=== PATIENT | male | born 1970 | race African-American/Black ===

== ENCOUNTER 2016-06-27 17:55 | Emergency (ER) | payer SELFPAY ==
--- NOTE | 2016-06-27 23:26 | ER Document Report ---
ED General - General Chief Complaint: Weakness Stated Complaint: FATIGUE Notes: Patient is a 45-year-old male presents with complaint of cough and congestion. No fevers. No vomiting. No diarrhea. Patient was seen here 10 days ago. He was diagnosed with atypical pneumonia. He was placed on Bactrim and azithromycin. Patient says he is feeling approximately 85-90% better but still has a lingering cough. She does have a history of diabetes. No history of HIV- related. No history of any other immunosuppressive diseases. Patient says he does have some mild pain in his chest but it's only when he coughs.. TRAVEL OUTSIDE OF THE [place] IN LAST 30 DAYS: No - Related Data Allergies/Adverse Reactions: No Known Allergies Allergy (Verified 06/27/16 18:30) Past Medical History - General Information source: Patient - Social History Smoking Status: Never Smoker Chew tobacco use (# tins/day): No Frequency of alcohol use: None Drug Abuse: None Family History: Reviewed & Not Pertinent, DM, Hypertension Patient has suicidal ideation: No Patient has homicidal ideation: No Pulmonary Medical History: Reports: Hx Bronchitis Endocrine Medical History: Reports: Hx Diabetes Mellitus Type 2 Psychiatric Medical History: Reports: Hx Depression Past Surgical History: Reports: Hx Orthopedic Surgery - Immunizations Hx Diphtheria, Pertussis, Tetanus Vaccination: No Hx Pneumococcal Vaccination: 10/05/13 Review of Systems - Review of Systems Notes: My Normal Review Basic REVIEW OF SYSTEMS: CONSTITUTIONAL : Denies fever, chills, or sweats. Denies recent illness. EENT: Mild sore throat CARDIOVASCULAR: Has chest pain with cough RESPIRATORY: Cough GASTROINTESTINAL: Denies abdominal pain. Denies nausea, vomiting, or diarrhea. Denies constipation. Last BM: MUSCULOSKELETAL: Denies neck or back pain or joint pain or swelling. SKIN: Denies rash or skin lesions. NEUROLOGICAL: Denies altered mental status or loss of consciousness. Denies headache. Denies weakness or paralysis or loss of use of either side. Denies problems with gait or speech. Denies sensory or motor loss. ALL OTHER SYSTEMS REVIEWED AND NEGATIVE. Physical Exam - Vital signs Vitals: Temp Pulse Resp BP Pulse Ox 98.3 F 111 H 18 134/84 H 94 06/27/16 18:20 06/27/16 18:20 06/27/16 18:20 06/27/16 18:20 06/27/16 18:20 - Notes Notes: General Appearance: Well nourished, alert, cooperative, no acute distress, no obvious discomfort. Mild pain Vitals: reviewed, See vital signs table. Head: no swelling or tenderness to the head Eyes: PERRL, EOMI, Conjuctiva clear Mouth: No decreasd moisture Nose: Some audible nasal congestion Throat: No tonsillar inflammation, No airway obstruction, No lymphadenopathy. Mild pharyngeal erythema. Neck: Supple, no neck tenderness, No thyromegaly Lungs: No wheezing, No rales, No rhonci, No accessory muscle use, good air exchange bilaterally. Heart: Normal rate, Regular rythm, No murmur, no rub Abdomen: Normal BS, soft, No rigidity, No abdominal tenderness, No guarding, no rebound, no abdominal masses, no organomegaly Extremities: strength 5/5 in all extremities, good pulses in all extremities, no swelling or tenderness in the extremities, no edema. Skin: warm, dry, appropriate color, no rash Neuro: speech clear, oriented x 3, normal affect, responds appropriately to questions. Course - Vital Signs Vital signs: Temp Pulse Resp BP Pulse Ox 98.2 F 108 H 16 109/77 97 06/28/16 01:46 06/28/16 01:46 06/28/16 01:46 06/28/16 01:46 06/28/16 01:46 - Transfer of Care Notes: 06/28/16 00:47 Patient's physical exam findings consistent with upper respiratory infection with cough. He looks very well and exam. His no distress. His chest x-ray has cleared up since he has been on anabolic. Patient himself and says he feels proximately 90% better. He is here mainly because of lingering cough has some pain in his chest never he coughs. Without the cough has no pain in his chest. Is very pleuritic. I do think it's related to his recent infection. Has just mild tachycardia upon arrival. I do not suspect PE. All his symptoms started with his pneumonia and have improved with antibiotics which would be very unlikely for pulmonary embolism. At this time I feel patient safe to be discharged home. I encouraged him to return to ER if he has worsening of symptoms, fevers, vomiting, or feels unwell. Patient agrees with plan will be discharged home. Dictation of this chart was performed using voice recognition software; therefore, there may be some unintended grammatical errors. Discharge - Discharge Clinical Impression: Cough Condition: Good Disposition: HOME, SELF-CARE Additional Instructions: Please return to the ER immediately if you develop difficulty breathing, fevers , or feel unwell. Referrals: NIYA TODD DO [Primary Care Provider] - Follow up in 3-5 days
[2016-06-28 01:48] VITALS: BP 109/77
== END 2016-06-28 01:32 | disposition home or self-care (01) ==
LOC: ER 17:55
DX: R05 Cough (principal); R53.1 Weakness; R53.83 Other fatigue; R09.81 Nasal congestion
CPT/HCPCS: 71020; 99284

== ENCOUNTER 2016-11-03 13:36 | Inpatient (IN) | payer SELFPAY ==
--- NOTE | 2016-11-03 15:10 | ER Document Report ---
ED Medical Screen (RME) - General Mode of Arrival: Wheelchair Information source: Patient TRAVEL OUTSIDE OF THE [place] IN LAST 30 DAYS: No - HPI Patient complains to provider of: wound <JANETTE LO - Last Filed: 11/03/16 15:05> <MICHELLE CAPUTO - Last Filed: 11/03/16 19:46> - General Chief Complaint: Skin Sore(s) Stated Complaint: CUT ON PINKY TOE,CHILLS Time Seen by Provider: 11/03/16 15:00 Notes: Patient presents to ED with complaints of wond on right foot. Patient is diabetic on Genoiva but admits he only takes it sometimes, states his blood sugar normally runs between 200-300. Patient states he noticed the cut on his pinky toe about 4 days ago and redness over his foot and calf 3 days ago, patient also complains of fever. (JANETTE LO) - Related Data Allergies/Adverse Reactions: No Known Allergies Allergy (Verified 11/03/16 14:55) Past Medical History - General Information source: Patient - Social History Cigarette use (# per day): No Chew tobacco use (# tins/day): No Frequency of alcohol use: None Drug Abuse: None Pulmonary Medical History: Reports: Hx Bronchitis Endocrine Medical History: Reports: Hx Diabetes Mellitus Type 2 Renal/ Medical History: Denies: Hx Peritoneal Dialysis Psychiatric Medical History: Reports: Hx Depression Past Surgical History: Reports: Hx Orthopedic Surgery - Immunizations Hx Diphtheria, Pertussis, Tetanus Vaccination: No <JANETTE LO - Last Filed: 11/03/16 15:05> Review of Systems - Review of Systems Skin: See HPI, Lesions <JANETTE LO - Last Filed: 11/03/16 15:05> Physical Exam - Cardiovascular Rhythm: Tachycardia - mild Pulses: Normal: Dorsalis pedis - Extremities General lower extremity: Other - warmth and redness from right foot up to just below knee. Diabetic ulcer on right foot partially healed below 4th and 5th MTP. Region of necrosis between 4th and 5th digist of right foot with exudate. Diabetic ulcer on lateral aspect of 5th digit that does not palpate to bone. <JANETTE LO - Last Filed: 11/03/16 15:05> Course - Laboratory Result Diagrams: 11/03/16 15:37 11/03/16 18:11 <MICHELLE CAPUTO - Last Filed: 11/03/16 19:46> - Vital Signs Vital signs: Temp Pulse Resp BP Pulse Ox 98.8 F 110 H 18 168/91 H 88 L 11/03/16 17:39 11/03/16 17:39 11/03/16 13:47 11/03/16 17:39 11/03/16 17:39 - Laboratory Laboratory results interpreted by me: 11/03/16 15:37 WBC 11.7 H RBC 4.14 L Hgb 11.6 L Hct 34.8 L Absolute Neutrophils 8.7 H Doctor's Discharge <JANETTE LO - Last Filed: 11/03/16 15:05> <MICHELLE CAPUTO - Last Filed: 11/03/16 19:46> - Discharge Clinical Impression: Cellulitis of foot, right Diabetic ulcer of foot associated with diabetes mellitus due to underlying condition, with necrosis of bone Qualifiers: Diabetic foot ulcer location: unspecified part of foot Laterality: right Qualified Code(s): E08.621 - Diabetes mellitus due to underlying condition with foot ulcer Condition: Stable Disposition: ADMITTED INPATIENT Scribe Documentation - Scribe Written by Scribe:: abigail Thomson, 11/03/16, 1510 acting as scribe for :: Loi <JANETTE LO - Last Filed: 11/03/16 15:05>
[2016-11-03] MEDS ORDERED: VANCOMYCIN HCL INJ 1000 MG VIAL IV ONE (15:21)
[2016-11-03] MEDS ORDERED: PIPERACILLIN/TAZOBACTAM 4.5 GM VIAL IV ONE (15:21)
[2016-11-03 15:55] LABS: ABSOLUTE BASOPHILS # (AUTO) 0.1 10^3/uL (0.0-0.2); ABSOLUTE EOSINOPHILS # (AUTO) 0.2 10^3/uL (0.0-0.6); ABSOLUTE LYMPHOCYTES (AUTO) 1.6 10^3/uL (0.5-4.7); ABSOLUTE MONOCYTES (AUTO) 1.1 10^3/uL (0.1-1.4); ABSOLUTE NEUT (AUTO) 8.7 10^3/uL (1.7-8.2); BASOPHILS % (AUTO) 0.9 % (0-2); EOSINOPHILS % (AUTO) 1.5 % (0-6); HEMATOCRIT 34.8 % (37.9-51.0); HEMOGLOBIN 11.6 g/dL (13.5-17.0); LYMPHOCYTES % (AUTO) 13.9 % (13-45); MEAN CORPUSCULAR HGB CONC 33.3 g/dL (32.0-36.0); MEAN CORPUSCULAR VOLUME 84 fl (80-97); MONOCYTES % (AUTO) 9.2 % (3-13); RED BLOOD COUNT 4.14 10^6/uL (4.35-5.55); RED CELL DISTRIBUTION WIDTH 13.7 % (11.5-14.0); SEGMENTED NEUTROPHILS % (AUTO) 74.5 % (42-78); WHITE BLOOD COUNT 11.7 10^3/uL (4.0-10.5)
--- NOTE | 2016-11-03 17:12 | ER Document Report ---
ED Skin Rash/Insect Bite/Abscs - General Chief Complaint: Skin Sore(s) Stated Complaint: CUT ON PINKY TOE,CHILLS Time Seen by Provider: 11/03/16 15:00 Mode of Arrival: Wheelchair Notes: The patient is a 46-year-old male, past medical history type II diabetes, bronchitis, presents with 3 days of 2 wounds on his right foot with drainage and increasing redness up his leg. He is also having subjective fevers and chills. In addition, he has his chronic cough. He has not taken his Januvia for several months and has not seen his auditor in charge in a few years. He does not remember if he had an injury. Denies chest pain at rest, shortness of breath, nausea, vomiting, hematemesis, difficulty walking or calf swelling. TRAVEL OUTSIDE OF THE [place] IN LAST 30 DAYS: No - Related Data Allergies/Adverse Reactions: No Known Allergies Allergy (Verified 11/03/16 14:55) Past Medical History - General Information source: Patient - Social History Smoking Status: Never Smoker Cigarette use (# per day): No Chew tobacco use (# tins/day): No Frequency of alcohol use: None Drug Abuse: None Family History: Reviewed & Not Pertinent, DM, Hypertension Patient has suicidal ideation: No Patient has homicidal ideation: No Pulmonary Medical History: Reports: Hx Bronchitis Endocrine Medical History: Reports: Hx Diabetes Mellitus Type 2 Renal/ Medical History: Denies: Hx Peritoneal Dialysis Psychiatric Medical History: Reports: Hx Depression Past Surgical History: Reports: Hx Orthopedic Surgery - Immunizations Hx Diphtheria, Pertussis, Tetanus Vaccination: No Hx Pneumococcal Vaccination: 10/05/13 Review of Systems - Review of Systems Notes: REVIEW OF SYSTEMS: CONSTITUTIONAL: -fevers, -chills EENT: -eye pain, -difficulty swallowing, -nasal congestion CARDIOVASCULAR: -chest pain, -syncope RESPIRATORY: -cough, -SOB GASTROINTESTINAL: -abdominal pain, -nausea, -vomiting, -diarrhea GENITOURINARY: -dysuria, -hematuria MUSCULOSKELETAL: -back pain, -neck pain SKIN: +discharge out of right foot, +cellulitis HEMATOLOGIC: -easy bruising or bleeding. LYMPHATIC: -swollen, enlarged glands. NEUROLOGICAL: -altered mental status or loss of consciousness, -headache, - neurologic symptoms PSYCHIATRIC: -anxiety, -depression. ALL OTHER SYSTEMS REVIEWED AND NEGATIVE. Physical Exam - Vital signs Vitals: Temp Pulse Resp BP Pulse Ox 99.8 F 107 H 18 118/71 94 11/03/16 13:47 11/03/16 13:47 11/03/16 13:47 11/03/16 13:47 11/03/16 13:47 - Notes Notes: PHYSICAL EXAMINATION: GENERAL: Well-appearing, well-nourished and in no acute distress. HEAD: Atraumatic, normocephalic. EYES: Pupils equal round and reactive to light, extraocular movements intact, sclera anicteric, conjunctiva are normal. ENT: nares patent, oropharynx clear without exudates. Moist mucous membranes. NECK: Normal range of motion, supple without lymphadenopathy LUNGS: Breath sounds clear to auscultation bilaterally and equal. No wheezes rales or rhonchi. HEART: Tachycardia ABDOMEN: Soft, nontender, normoactive bowel sounds. No guarding, no rebound. No masses appreciated. EXTREMITIES: warmth and redness from right foot up to just below ankle. Diabetic ulcer on right foot partially healed below 4th and 5th MTP. Region of necrosis between 4th and 5th digist of right foot with exudate. Diabetic ulcer on lateral aspect of 5th digit that does not palpate to bone. NEUROLOGICAL: Cranial nerves grossly intact. Normal speech, normal gait. Normal motor and reflex exams. PSYCH: Normal mood, normal affect. Course - Re-evaluation Re-evalutation: Patient with pustular drainage and cellulitis up to his ankle of his right foot. X-ray shows gas and evidence of cellulitis, but no evidence of osteomyelitis. Spoke to Dr. Santiago at 17:10 and he will consult to see if the wounds needs debridement. Spoke to Dr. Nam (Hospitalist) at 17:20 and she has accepted patient as Inpatient. Patient received IV vancomycin and Zosyn. BMP hemolyzed, but repeat sent. - Vital Signs Vital signs: Temp Pulse Resp BP Pulse Ox 99.8 F 107 H 18 118/71 94 11/03/16 13:47 11/03/16 13:47 11/03/16 13:47 11/03/16 13:47 11/03/16 13:47 - Laboratory Result Diagrams: 11/03/16 15:37 11/03/16 15:37 Laboratory results interpreted by me: 05/11/17 15:37 WBC 11.7 H RBC 4.14 L Hgb 11.6 L Hct 34.8 L Absolute Neutrophils 8.7 H Discharge - Discharge Clinical Impression: Cellulitis of foot, right Diabetic ulcer of foot associated with diabetes mellitus due to underlying condition, with necrosis of bone Qualifiers: Diabetic foot ulcer location: unspecified part of foot Laterality: right Qualified Code(s): E08.621 - Diabetes mellitus due to underlying condition with foot ulcer; L97.514 - Non-pressure chronic ulcer of other part of right foot with necrosis of bone Condition: Stable Disposition: ADMITTED INPATIENT Admitting Provider: [facility] Unit Admitted: Medical Floor
[2016-11-03] MEDS ORDERED: DEXTROSE 50%-WATER 25 GM/50 ML DISP.SYRIN IV PRN ×4 (17:49→19:01)
[2016-11-03] MEDS ORDERED: GLUCAGON,HUMAN RECOMB 1 MG INJ IM PRN (17:49)
[2016-11-03] MEDS ORDERED: DEXTROSE 40% GEL 15 GM TUBE PO PRN ×4 (17:49→19:01)
[2016-11-03] MEDS ORDERED: VANCOMYCIN HCL 0 MG in DEXTROSE 5%-WATER 250 ML IV NR (18:00)
--- NOTE | 2016-11-03 18:10 | PDOC H&P ---
History of Present Illness Admission Date/PCP: NIYA TODD DO History of Present Illness: JEANNE DELEON is a 46 year old -[place] male with a past medical history significant for diabetes mellitus who presents to the service with complaints of right foot pain and toe wound. The patient states that approximately 3-4 days ago he was checking his feet and noticed that there was blood coming from the bottom of his foot. History of diabetic foot ulcer on that same side. He says that he had pus coming from between the third and fourth toe and over time his foot began to get red. He is not certain as to whether or not he injured it. He says that he remembers hitting it on a vacuum reed cleaner couple days ago but didn't think anything of it. He usually checks his feet on a daily basis by using a mirror. Last time he was seen by his monitoring analyst was a year ago. He usually follows with a physician at [facility]. He says his last hemoglobin A1c was about a year ago and was somewhere between 11 and 12. He freely admits that he doesn't check his blood sugars and only takes his Januvia sporadically. He denies any neuropathy. He feels that he has normal sensation in his feet. In the emergency room the patient was noted to have purulent drainage from between his third and fourth digit. He was taken for x-ray of the soft tissues of the foot which showed gas collection no chase osteomyelitis. He was given 1 dose of Zosyn and one dose of vancomycin. Dr. James with general surgery was consulted to determine whether not sharp knife debridement would be necessary. Past Medical History Pulmonary Medical History: Reports: Bronchitis, Other - History of MRSA infected boils and wounds Endocrine Medical History: Reports: Diabetes Mellitus Type 2 Psychiatric Medical History: Reports: Depression Past Surgical History Past Surgical History: Reports: Other - Removal of "tumor" from the right thigh , removal of multiple boils Social History Smoking Status: Never Smoker Frequency of Alcohol Use: None Hx Recreational Drug Use: No Hx Prescription Drug Abuse: No Family History Family History: CAD, DM, Hypertension Parental Family History Reviewed: Yes Children Family History Reviewed: Yes Sibling(s) Family History Reviewed.: Yes Medication/Allergy Home Medications: Acetaminophen [Tylenol Extra Strength] 500 mg PO ASDIR PRN 11/03/16 Loperamide HCl [Loperamide] 2 mg PO DAILY 11/03/16 Sitagliptin Phosphate [Januvia 25 mg Tablet] 25 mg PO DAILY 11/03/16 Allergies/Adverse Reactions: No Known Allergies Allergy (Verified 11/03/16 14:55) Review of Systems Review of Systems: Review of systems is positive for that already listed in the history of present illness. In addition to this the patient admits to cold intolerance, decreased appetite, chest wall pain associated with chronic cough, periodic nosebleeds, chills, diarrhea and constipation, nausea. He denies vomiting blood in the stool, blood in the urine, coughing up blood, or throwing up blood, he denies arthritic type pains, abdominal pain, chest pain, shortness of breath, visual changes, weight changes. Physical Exam Vital Signs: Temp Pulse Resp BP Pulse Ox 99.8 F 107 H 18 118/71 94 11/03/16 13:47 11/03/16 13:47 11/03/16 13:47 11/03/16 13:47 11/03/16 13:47 Intake & Output 11/02/16 11/03/16 11/04/16 06:59 06:59 06:59 Weight 101.7 kg Physical exam: Gen.: This is a well-developed well-nourished overweight -[place] male resting in bed currently in no acute distress. HEENT: normocephalic atraumatic. Trachea is midline. No lymphadenopathy. No thyromegaly. Sclera are not icteric. Mallenpatii 3. Heart: Regular rate and rhythm. No murmurs rubs or gallops. Lungs: Clear to auscultation bilaterally with equal rise and fall of the chest. Abdomen: Soft nontender, nondistended. Normoactive bowel sounds. Extremities: No clubbing cyanosis. There is no edema on the left side. There is 1+ edema of the right foot. 2+ dorsalis pedis pulses bilaterally. Strength is 5 out of 5 in both upper and lower extremities bilaterally. Neuro: Awake alert oriented 3 cranial nerves II through XII are specifically intact. Pupils are Perrl. Sensation in the feet are intact. Psych: Affect is flat. Skin: The right foot has erythema extending from the toes up through the foot. There is a purulent, malodorous discharge between the third and fourth digit on that side. Final elements are obvious between all digits of both feet. Onychomycosis present. Results Laboratory Results: 11/03/16 15:37 11/03/16 15:37 11/03/16 11/03/16 15:37 15:37 WBC 11.7 H RBC 4.14 L Hgb 11.6 L Hct 34.8 L MCV 84 MCH 28.0 MCHC 33.3 RDW 13.7 Plt Count 269 Seg Neutrophils % 74.5 Lymphocytes % 13.9 Monocytes % 9.2 Eosinophils % 1.5 Basophils % 0.9 Absolute Neutrophils 8.7 H Absolute Lymphocytes 1.6 Absolute Monocytes 1.1 Absolute Eosinophils 0.2 Absolute Basophils 0.1 Sodium Cancelled Potassium Cancelled Chloride Cancelled Carbon Dioxide Cancelled Anion Gap Cancelled BUN Cancelled Creatinine Cancelled Est GFR ( Amer) Cancelled Est GFR (Non-Af Amer) Cancelled Glucose Cancelled Calcium Cancelled Total Bilirubin Cancelled AST Cancelled ALT Cancelled Alkaline Phosphatase Cancelled Total Protein Cancelled Albumin Cancelled Impressions: Foot X-Ray 11/03/16 15:21 IMPRESSION: Soft tissue swelling with soft tissue gas between the 4th and 5th toe proximal phalanges. Findings are certainly worrisome for cellulitis. No radiopaque foreign body. No aggressive bony erosions or periosteal new bone worrisome for osteomyelitis by plain film at this time Assessment & Plan - Diagnosis (1) Cellulitis of foot, right Plan: Continue vancomycin and Zosyn for now. General surgery consult has been placed. Will also add griseofulvin if liver enzymes are normal. These labs will need to be repeated as they were canceled earlier. We will need control of the patient's blood sugar. (2) Diabetes Qualifiers: Diabetes mellitus type: type 2 Diabetes mellitus complication status: with circulatory complication Diabetes mellitus complication detail: with other circulatory complications Diabetes mellitus assisted insulin use: without deployment engineer use Qualified Code(s): E11.59 - Type 2 diabetes mellitus with other circulatory complications Plan: Check hemoglobin A1c in a.m. Repeat chemistries now as they were canceled. Monitor blood sugars to determine what amount of insulin the patient will need. Diabetic teaching/education. Start sliding scale insulin. Every before meals at bedtime blood sugar checks - Time Time Spent: 50 to 70 Minutes Anticipated discharge: Home - Inpatient Certification Medical Necessity: Significant Comorbidiites Make Outpatient Treatment Too Risky , Need for IV Antibiotics
--- NOTE | 2016-11-03 18:15 | PDOC H&P ---
History of Present Illness Admission Date/PCP: 11/03/16 17:50 NIYA TODD DO Patient complains of: Right foot pain and fevers and chills. History of Present Illness: Patient is a 46 year-old the diabetic who presents with several day history of right foot swelling with purulent drainage and fevers and chills. Patient has had some pain in his right foot. He has a history of a right foot ulcer at the base of his fifth toe that was debrided the last year and apparently healed. Past Medical History Pulmonary Medical History: Reports: Bronchitis Endocrine Medical History: Reports: Diabetes Mellitus Type 2 Psychiatric Medical History: Reports: Depression Past Surgical History Past Surgical History: Reports: Orthopedic Surgery Social History Smoking Status: Never Smoker Frequency of Alcohol Use: None Hx Recreational Drug Use: No Hx Prescription Drug Abuse: No Family History Family History: Reviewed & Not Pertinent, DM, Hypertension Parental Family History Reviewed: No Children Family History Reviewed: No Sibling(s) Family History Reviewed.: No Medication/Allergy Allergies/Adverse Reactions: No Known Allergies Allergy (Verified 11/03/16 14:55) Physical Exam Vital Signs: Temp Pulse Resp BP Pulse Ox 99.8 F 107 H 18 118/71 94 11/03/16 13:47 11/03/16 13:47 11/03/16 13:47 11/03/16 13:47 11/03/16 13:47 General appearance: PRESENT: no acute distress, cooperative Neck exam: PRESENT: other - Supple with no tenderness and no abnormal masses Respiratory exam: PRESENT: clear to auscultation donna Cardiovascular exam: PRESENT: RRR Pulses: PRESENT: +2 pedal pulses bilateral Vascular exam: PRESENT: normal capillary refill GI/Abdominal exam: PRESENT: other - Soft nondistended nontender to palpation Extremities exam: PRESENT: other - Left foot without any lesions no abnormalities. Right foot with the diffuse erythema centralized at the lateral aspect extending to the midfoot dorsally. Small ulcer at the fifth metatarsal region laterally with the purulent drainage. Surrounding induration and a sense of fluctuance laterally. Patient with the mild tenderness in the lateral aspect of his right foot. Patient with evidence of healed ulcer at the sole in the region of the fifth metatarsal head. Neurological exam: PRESENT: alert, awake, oriented to person, oriented to place Psychiatric exam: PRESENT: appropriate affect Results Impressions: Foot X-Ray 11/03/16 15:21 IMPRESSION: Soft tissue swelling with soft tissue gas between the 4th and 5th toe proximal phalanges. Findings are certainly worrisome for cellulitis. No radiopaque foreign body. No aggressive bony erosions or periosteal new bone worrisome for osteomyelitis by plain film at this time Assessment & Plan - Diagnosis (1) Diabetic infection of right foot Is this a current diagnosis for this admission?: YesPlan: We'll plan to take the patient to the operating room for an excisional debridement. Possibility of performing a fifth toe and fifth metatarsal amputation if there is evidence of osteomyelitis intraoperatively. I have explained to the patient the nature of the surgery and risk and benefits including possibility that he may end up with a below the knee amputation if we cannot get the infection under control. Initial surgery will be to try to get control over his infection. He understands that subsequent surgeries may be required.
[2016-11-03] MEDS ORDERED: FENTANYL CITRATE INJ/PF 100 MCG/2 ML AMPUL ONE ×2 (18:37→18:38)
[2016-11-03] MEDS ORDERED: HYDROMORPHONE HCL INJ/PF 2 MG/ML AMPULE ONE (18:37)
[2016-11-03] MEDS ORDERED: MIDAZOLAM 2 MG/2 ML INJ ONE (18:38)
[2016-11-03] MEDS ORDERED: ACETAMINOPHEN 0 ML IV ONE (18:38)
[2016-11-03] MEDS ORDERED: PROPOFOL INJ 200 MG/20 ML VIAL IV ONE (18:38)
[2016-11-03 18:48] LABS: ANION GAP 10 (5-19); BLOOD UREA NITROGEN 16 mg/dL (7-20); CALCIUM 8.4 mg/dL (8.4-10.2); CARBON DIOXIDE 28 mmol/L (22-30); CHLORIDE 97 mmol/L (98-107); CREATININE RESULT 0.91 mg/dL (0.52-1.25); GLUCOSE 248 mg/dL (75-110); POTASSIUM 3.9 mmol/L (3.6-5.0)
[2016-11-03] MEDS ORDERED: LIDOCAINE 2% INJ-PF (20 MG/ML) 10 ML AMPUL ONE (18:59)
[2016-11-03] MEDS ORDERED: ONDANSETRON HCL INJ/PF 4 MG/2 ML SDV ONE (18:59)
[2016-11-03] MEDS ORDERED: GLUCAGON,HUMAN RECOMB 1 MG INJ SUBCUT PRN (19:01)
--- NOTE | 2016-11-03 19:01 | PDOC PROGRESS REPORT ---
Physical Exam Vital Signs: Temp Pulse Resp BP Pulse Ox 98.8 F 110 H 18 168/91 H 88 L 11/03/16 17:39 11/03/16 17:39 11/03/16 13:47 11/03/16 17:39 11/03/16 17:39 Results Laboratory Results: 11/03/16 18:11 11/03/16 18:11 Sodium 135.0 L Potassium 3.9 Chloride 97 L Carbon Dioxide 28 Anion Gap 10 BUN 16 Creatinine 0.91 Est GFR ( Amer) > 60 Est GFR (Non-Af Amer) > 60 Glucose 248 H Calcium 8.4 Impressions: Foot X-Ray 11/03/16 15:21 IMPRESSION: Soft tissue swelling with soft tissue gas between the 4th and 5th toe proximal phalanges. Findings are certainly worrisome for cellulitis. No radiopaque foreign body. No aggressive bony erosions or periosteal new bone worrisome for osteomyelitis by plain film at this time Assessment & Plan - Diagnosis (1) Diabetic infection of right foot Is this a current diagnosis for this admission?: YesPlan: Patient about to be taken to the operating room for his right foot debridement but unfortunately despite being told not to eat anything patient ate dinner. Diabetic patient who has just eaten a meal. Will hold off surgery till morning.
[2016-11-03] MEDS: PIPERACILLIN SODIUM/TAZOBACTAM 3.375 GM in NORMAL SALINE 100 ML IV SCH (22:29)
[2016-11-03] MEDS ORDERED: PIPERACILLIN/TAZOBACTAM 3.375 GM VIAL IV ONE (22:54)
[2016-11-03] MEDS ORDERED: VANCOMYCIN HCL INJ 500 MG VIAL ONE (22:54)
[2016-11-03] MEDS ORDERED: VANCOMYCIN HCL INJ 1000 MG VIAL ONE (22:54)
[2016-11-04] MEDS: PIPERACILLIN SODIUM/TAZOBACTAM 3.375 GM in NORMAL SALINE 100 ML IV SCH ×4 (00:10→17:26)
[2016-11-04] MEDS: OXYCODONE-ACETAMINOPHEN 5-325 MG TABLET PO PRN ×2 (00:28→16:27)
[2016-11-04] MEDS: VANCOMYCIN HCL 1,500 MG in DEXTROSE 5%-WATER 250 ML IV SCH ×3 (00:28→22:35)
[2016-11-04] MEDS: INSULIN REG, HUMAN 100 UNIT/ML 3 ML VIAL (PYX) SUBCUT PRN ×3 (00:28→22:57)
[2016-11-04 06:10] LABS: ABSOLUTE BASOPHILS # (AUTO) 0.1 10^3/uL (0.0-0.2); ABSOLUTE EOSINOPHILS # (AUTO) 0.2 10^3/uL (0.0-0.6); ABSOLUTE LYMPHOCYTES (AUTO) 1.7 10^3/uL (0.5-4.7); ABSOLUTE MONOCYTES (AUTO) 1.1 10^3/uL (0.1-1.4); ABSOLUTE NEUT (AUTO) 7.9 10^3/uL (1.7-8.2); BASOPHILS % (AUTO) 1.2 % (0-2); EOSINOPHILS % (AUTO) 2.2 % (0-6); HEMATOCRIT 33.5 % (37.9-51.0); HGB HCT DIFFERENCE -0.5; LYMPHOCYTES % (AUTO) 15.6 % (13-45); MEAN CORPUSCULAR HEMOGLOBIN 27.6 pg (27.0-33.4); MEAN CORPUSCULAR HGB CONC 32.8 g/dL (32.0-36.0); MEAN CORPUSCULAR VOLUME 84 fl (80-97); MONOCYTES % (AUTO) 9.7 % (3-13); RED BLOOD COUNT 3.98 10^6/uL (4.35-5.55); SEGMENTED NEUTROPHILS % (AUTO) 71.3 % (42-78)
[2016-11-04 06:31] LABS: ANION GAP 7 (5-19); BLOOD UREA NITROGEN 17 mg/dL (7-20); CALCIUM 8.4 mg/dL (8.4-10.2); CARBON DIOXIDE 30 mmol/L (22-30); CHLORIDE 101 mmol/L (98-107); CREATININE RESULT 1.08 mg/dL (0.52-1.25); GLUCOSE 203 mg/dL (75-110); MAGNESIUM 2.1 mg/dL (1.6-2.3); POTASSIUM 3.9 mmol/L (3.6-5.0); SODIUM 137.9 mmol/L (137-145)
[2016-11-04] MEDS: ENOXAPARIN SODIUM INJ 40 MG/0.4 ML DISP.SYRIN SUBCUT SCH (08:40)
[2016-11-04] MEDS ORDERED: FAMOTIDINE INJ/PF 20 MG/2 ML SDV IV ONE (08:47)
[2016-11-04] MEDS ORDERED: METOCLOPRAMIDE HCL INJ/PF 10 MG/2 ML SDV ONE ×2 (08:47→16:38)
[2016-11-04] MEDS ORDERED: FENTANYL CITRATE INJ/PF 250 MCG/5 ML AMPULE ONE (09:52)
[2016-11-04] MEDS ORDERED: FENTANYL CITRATE INJ/PF 100 MCG/2 ML AMPUL ONE (09:53)
[2016-11-04] MEDS ORDERED: MIDAZOLAM 2 MG/2 ML INJ ONE (09:53)
[2016-11-04] MEDS ORDERED: ACETAMINOPHEN 100 ML IV ONE (09:53)
[2016-11-04] MEDS ORDERED: MORPHINE SULFATE 10 MG/ML INJ ONE (09:54)
[2016-11-04] MEDS ORDERED: PROPOFOL INJ 200 MG/20 ML VIAL IV ONE (09:55)
[2016-11-04] MEDS ORDERED: MORPHINE SULFATE 10 MG/ML INJ IV PRN (10:29)
[2016-11-04] MEDS ORDERED: PROMETHAZINE HCL INJ 25 MG/1 ML VIAL IV PRN ×2 (10:29)
[2016-11-04] MEDS ORDERED: FENTANYL CITRATE INJ/PF 100 MCG/2 ML AMPUL IV PRN ×3 (10:29)
[2016-11-04] MEDS ORDERED: DIPHENHYDRAMINE HCL 50 MG/ML VIAL IV PRN (10:29)
[2016-11-04] MEDS ORDERED: OXYCODONE-ACETAMINOPHEN 5-325 MG TABLET PO PRN ×2 (10:29)
[2016-11-04] MEDS ORDERED: MEPERIDINE HCL/PF INJ 25 MG/1 ML DISP.SYRIN IV PRN (10:29)
--- NOTE | 2016-11-04 12:05 | EKG REPORT ---
SEVERITY:- BORDERLINE ECG - SINUS TACHYCARDIA PROBABLE LEFT ATRIAL ABNORMALITY : Confirmed by: Micheal Angeles 04-Nov-2016 12:04:32
--- NOTE | 2016-11-04 12:54 | OPERATIVE REPORT E ---
Operative Report NAME: JEANNE DELEON : 1970 AGE: 46Y DATE OF SURGERY: 11/04/2016 ROOM: 424 PREOPERATIVE DIAGNOSIS: Abscess of the right foot with an open wound at the area of the fifth toe. POSTOPERATIVE DIAGNOSIS: Abscess of the right foot with an open wound at the area of the fifth toe. PROCEDURE: Incision and drainage of abscess right foot, excision of the right fifth toe and most of the right metatarsal bone. Placement of wound VAC. SURGEON: RUTH COLVIN M.D. INDICATIONS: This is a 46-year-old diabetic who bumped his right fifth toe on a vacuum cleaner and preparer about a week ago. This developed into an abscess and he was admitted last night. He ate just before being admitted and therefore surgery was delayed until this morning. ANESTHESIA: General. DESCRIPTION OF PROCEDURE: After adequate general anesthesia, patient was placed in supine position and the right foot and lower leg isolated and prepped and draped in the usual sterile fashion. Appropriate time out was obtained. Next, an incision made over the fluctuant area on the top of the right foot right at the middle. A small incision was made but no pus was noted. About a 1 cm incision was done. Only some clear fluid was squeezed out. A sterile hemostat was placed over here and attempt to debride was done. However, only a small amount of serous fluid. A counter incision was made about 3 cm distal, that was the area of the second toe and again no pus was noted. The 2 incisions were then connected and again no purulent material was noted. However, cultures of the fluid were sent. Next, attention was then directed to the area of the right fifth toe base where a small ulcer with extruding purulent material was noted. Cultures of the purulent material was also sent. Next, the site of the abscess exit was then probed down proximally and probe by hemostat can be placed up to a distance of about 5 cm. An incision was made at this area. Further necrotic purulent material was removed. However, towards the area of the second toe underneath the skin was also a small amount of pus and the incision was made around the fifth toe. There was also some purulent material around that site. The fifth toe was then disarticulated and subsequently removed. Next, the metatarsal head was rongeured and noted to be relatively soft and therefore a sample of the bone was sent for culture. Further division of the head of the metatarsal was then done with a bone cutter. Further nibbling of the metatarsal bone was done with the use of rongeur to the point where the bone was relatively normal. Following this, there was a bleeder noted and this was grabbed with hemostat and suture ligated with 2-0 Vicryl. The wound was then further Pulsavac with 2 L of saline. The top part of the foot incisions were also pulse lavaged. Next, the base of the right foot opposite the second toe was noted to have a thick callus and this was then completely excised, extending from the incision to this area. The callus roughly measured about 2.5 cm in diameter. No abscess noted underneath the callus. Further hemostasis obtained at the operative site with the use of cautery. After adequate hemostasis noted, the defect was roughly measured about 8 cm towards the callus excision site and about 4 cm wide and 3 cm deep. A wound VAC was then placed over the operative sites and pressure placed at -125 mmHg continuous suction. Patient tolerated procedure well. Estimated blood about 30 mL. Patient was then brought to the recovery in satisfactory condition. DICTATING PHYSICIAN: RUTH COLVIN M.D. [id number] PHY#: [id number] ID: [id number] JOB#: [id number] ACCT: [id number] cc:RUTH COLVIN M.D. >
[2016-11-04] MEDS: KETOROLAC TROMETHAMINE INJ/PF 30 MG/1 ML SDV IV PRN (13:43)
[2016-11-04] MEDS ORDERED: VANCOMYCIN HCL 1,500 MG in DEXTROSE 5%-WATER 250 ML IV ONE (14:00)
--- NOTE | 2016-11-04 15:28 | PDOC PROGRESS REPORT ---
Subjective Progress Note for:: 11/04/16 Subjective:: This is a follow-up visit for diabetic foot wound. The patient is status post amputation of his fifth digit on the right side. He states that his pain is currently under control. When asked how he is feeling about it he seems to not be moved. He hasn't eaten yet and is hungry. He denies any chest pain or shortness of breath. Physical Exam Vital Signs: Temp Pulse Resp BP Pulse Ox 97.2 F 95 15 149/88 H 100 11/04/16 13:06 11/04/16 13:06 11/04/16 13:06 11/04/16 13:06 11/04/16 13:06 Intake & Output 11/03/16 11/04/16 11/05/16 06:59 06:59 06:59 Intake Total 450 5050 Output Total 700 2965 Balance -250 2085 Weight 100.3 kg Physical exam: Gen.: This is a well-developed well-nourished overweight -[place] male resting in bed currently in no acute distress. Heart: Regular rate and rhythm. No murmurs rubs or gallops. Lungs: Clear to auscultation bilaterally with equal rise and fall of the chest. Abdomen: Soft nontender, nondistended. Normoactive bowel sounds. Extremities: No clubbing cyanosis. There is no edema on the left side. There is 1+ edema of the right foot. There is a new wound VAC in place where the amputated digit used to be. 2+ dorsalis pedis pulses bilaterally. Neuro: Awake alert oriented 3 cranial nerves II through XII are grossly intact. Psych: Affect is flat. Skin: The right foot has erythema extending from the toes up through the foot. Results Laboratory Results: 11/04/16 05:39 11/04/16 05:39 11/03/16 11/04/16 11/04/16 18:11 05:39 05:39 WBC 11.0 H RBC 3.98 L Hgb 11.0 L Hct 33.5 L MCV 84 MCH 27.6 MCHC 32.8 RDW 13.0 Plt Count 238 Seg Neutrophils % 71.3 Lymphocytes % 15.6 Monocytes % 9.7 Eosinophils % 2.2 Basophils % 1.2 Absolute Neutrophils 7.9 Absolute Lymphocytes 1.7 Absolute Monocytes 1.1 Absolute Eosinophils 0.2 Absolute Basophils 0.1 Sodium 135.0 L 137.9 Potassium 3.9 3.9 Chloride 97 L 101 Carbon Dioxide 28 30 Anion Gap 10 7 BUN 16 17 Creatinine 0.91 1.08 Est GFR ( Amer) > 60 > 60 Est GFR (Non-Af Amer) > 60 > 60 Glucose 248 H 203 H Calcium 8.4 8.4 Magnesium 2.1 TSH 11/04/16 05:39 WBC RBC Hgb Hct MCV MCH MCHC RDW Plt Count Seg Neutrophils % Lymphocytes % Monocytes % Eosinophils % Basophils % Absolute Neutrophils Absolute Lymphocytes Absolute Monocytes Absolute Eosinophils Absolute Basophils Sodium Potassium Chloride Carbon Dioxide Anion Gap BUN Creatinine Est GFR ( Amer) Est GFR (Non-Af Amer) Glucose Calcium Magnesium TSH 1.16 11/04/16 10:34 Foot - Tissue Gram Stain - Final Impressions: Foot X-Ray 11/03/16 15:21 IMPRESSION: Soft tissue swelling with soft tissue gas between the 4th and 5th toe proximal phalanges. Findings are certainly worrisome for cellulitis. No radiopaque foreign body. No aggressive bony erosions or periosteal new bone worrisome for osteomyelitis by plain film at this time Assessment & Plan - Diagnosis (1) Cellulitis of foot, right Plan: Continue vancomycin and Zosyn for now. General surgery consult has been placed. He is postop day 0 from right fifth digit amputation of the foot. Wound VAC is in place. (2) Diabetes Qualifiers: Diabetes mellitus type: type 2 Diabetes mellitus complication status: with circulatory complication Diabetes mellitus complication detail: with other circulatory complications Diabetes mellitus termite control representative insulin use: without termite control representative use Qualified Code(s): E11.59 - Type 2 diabetes mellitus with other circulatory complications Plan: The globe and A1c is 13.9. And to use sliding scale insulin. The patient has missed breakfast and lunch today. I don't have enough information about his blood sugars to recommend a dose of long-acting insulin. Will wait till tomorrow. Blood sugars have been in the 200s. - Time Time Spent with patient: 15-24 minutes - Inpatient Certification Medical Necessity: Need Close Monitoring Due to Risk of Patient Decompensation, Need for IV Antibiotics
[2016-11-04] MEDS: NORMAL SALINE 1000 ML 1,000 ML IV PRN (16:34)
[2016-11-04] MEDS ORDERED: SUCCINYLCHOLINE CHLORIDE INJ 200 MG/10 ML VIAL ONE (16:36)
[2016-11-04] MEDS ORDERED: GLYCOPYRROLATE INJ 0.4 MG/2 ML VIAL ONE (16:38)
[2016-11-04] MEDS ORDERED: ONDANSETRON HCL INJ/PF 4 MG/2 ML SDV ONE (16:38)
[2016-11-04] MEDS ORDERED: LIDOCAINE 2% INJ-PF (20 MG/ML) 10 ML AMPUL ONE (16:38)
[2016-11-04] MEDS: HYDROMORPHONE HCL INJ/PF 2 MG/ML AMPULE IV PRN (22:44)
[2016-11-05] MEDS: PIPERACILLIN SODIUM/TAZOBACTAM 3.375 GM in NORMAL SALINE 100 ML IV SCH ×3 (04:16→17:29)
[2016-11-05 05:50] LABS: ABSOLUTE BASOPHILS # (AUTO) 0.1 10^3/uL (0.0-0.2); ABSOLUTE EOSINOPHILS # (AUTO) 0.3 10^3/uL (0.0-0.6); ABSOLUTE LYMPHOCYTES (AUTO) 1.7 10^3/uL (0.5-4.7); ABSOLUTE MONOCYTES (AUTO) 0.7 10^3/uL (0.1-1.4); ABSOLUTE NEUT (AUTO) 7.1 10^3/uL (1.7-8.2); EOSINOPHILS % (AUTO) 2.7 % (0-6); HEMATOCRIT 34.1 % (37.9-51.0); HEMOGLOBIN 11.3 g/dL (13.5-17.0); HGB HCT DIFFERENCE -0.2; LYMPHOCYTES % (AUTO) 17.6 % (13-45); MEAN CORPUSCULAR HEMOGLOBIN 28.3 pg (27.0-33.4); MEAN CORPUSCULAR VOLUME 86 fl (80-97); MONOCYTES % (AUTO) 7.2 % (3-13); RED BLOOD COUNT 3.97 10^6/uL (4.35-5.55); RED CELL DISTRIBUTION WIDTH 13.1 % (11.5-14.0); SEGMENTED NEUTROPHILS % (AUTO) 71.5 % (42-78); WHITE BLOOD COUNT 9.9 10^3/uL (4.0-10.5)
[2016-11-05 06:01] LABS: ANION GAP 9 (5-19); BLOOD UREA NITROGEN 14 mg/dL (7-20); CALCIUM 8.2 mg/dL (8.4-10.2); CARBON DIOXIDE 27 mmol/L (22-30); CHLORIDE 101 mmol/L (98-107); CREATININE RESULT 0.97 mg/dL (0.52-1.25); GLUCOSE 217 mg/dL (75-110); POTASSIUM 4.2 mmol/L (3.6-5.0); SODIUM 136.9 mmol/L (137-145)
[2016-11-05] MEDS: NORMAL SALINE 1000 ML 1,000 ML IV PRN ×2 (08:50→23:30)
[2016-11-05] MEDS: ENOXAPARIN SODIUM INJ 40 MG/0.4 ML DISP.SYRIN SUBCUT SCH (08:51)
[2016-11-05] MEDS: INSULIN REG, HUMAN 100 UNIT/ML 3 ML VIAL (PYX) SUBCUT PRN ×4 (09:40→23:19)
[2016-11-05] MEDS: VANCOMYCIN HCL 1,500 MG in DEXTROSE 5%-WATER 250 ML IV SCH (10:54)
[2016-11-05] MEDS: HYDROMORPHONE HCL INJ/PF 2 MG/ML AMPULE IV PRN (12:28)
--- NOTE | 2016-11-05 14:05 | PDOC PROGRESS REPORT ---
Subjective Progress Note for:: 11/05/16 Subjective:: This is a follow-up visit for diabetic foot wound. The patient is status post amputation of his fifth digit on the right side. He states that his pain is currently under control. He is feeling sleepy today because of the pain medicine he just received. Physical Exam Vital Signs: Temp Pulse Resp BP Pulse Ox 97.9 F 98 18 142/77 H 95 11/05/16 12:52 11/05/16 12:52 11/05/16 12:52 11/05/16 12:52 11/05/16 12:52 Intake & Output 11/04/16 11/05/16 11/06/16 06:59 06:59 06:59 Intake Total 450 7131 Output Total 700 3340 Balance -250 3791 Weight 100.3 kg 100.3 kg Physical exam: Gen.: This is a well-developed well-nourished overweight -[place] male resting in bed currently in no acute distress. Heart: Regular rate and rhythm. No murmurs rubs or gallops. Lungs: Clear to auscultation bilaterally with equal rise and fall of the chest. Abdomen: Soft nontender, nondistended. Normoactive bowel sounds. Extremities: No clubbing cyanosis. There is no edema on the left side. There is 1+ edema of the right foot. Wound VAC in place where the amputated digit used to be. 2+ dorsalis pedis pulses bilaterally. Neuro: Awake alert oriented 3 cranial nerves II through XII are grossly intact. Psych: Affect is flat. Skin: The right foot has erythema extending from the toes up through the foot. It appears much better today. Results Laboratory Results: 11/05/16 04:41 11/05/16 09:28 11/05/16 11/05/16 11/05/16 04:41 04:41 09:28 WBC 9.9 RBC 3.97 L Hgb 11.3 L Hct 34.1 L MCV 86 MCH 28.3 MCHC 33.0 RDW 13.1 Plt Count 254 Seg Neutrophils % 71.5 Lymphocytes % 17.6 Monocytes % 7.2 Eosinophils % 2.7 Basophils % 1.0 Absolute Neutrophils 7.1 Absolute Lymphocytes 1.7 Absolute Monocytes 0.7 Absolute Eosinophils 0.3 Absolute Basophils 0.1 Sodium 136.9 L Potassium 4.2 Chloride 101 Carbon Dioxide 27 Anion Gap 9 BUN 14 Creatinine 0.97 1.10 Est GFR ( Amer) > 60 > 60 Est GFR (Non-Af Amer) > 60 > 60 Glucose 217 H Calcium 8.2 L Magnesium 2.0 11/04/16 10:34 Foot - Tissue Gram Stain - Final 11/03/16 23:00 Nasophary ([facility] Only) MRSA Surveillance Culture - Final NO MRSA RECOVERED Impressions: Foot X-Ray 11/03/16 15:21 IMPRESSION: Soft tissue swelling with soft tissue gas between the 4th and 5th toe proximal phalanges. Findings are certainly worrisome for cellulitis. No radiopaque foreign body. No aggressive bony erosions or periosteal new bone worrisome for osteomyelitis by plain film at this time Assessment & Plan - Diagnosis (1) Cellulitis of foot, right Plan: Continue vancomycin and Zosyn for now. General surgery consult has been placed. He is postop day 1 from right fifth digit amputation of the foot. Wound VAC is in place. Await culture results. (2) Diabetes Qualifiers: Diabetes mellitus type: type 2 Diabetes mellitus complication status: with circulatory complication Diabetes mellitus complication detail: with other circulatory complications Diabetes mellitus truck terminal manager insulin use: without truck terminal manager use Qualified Code(s): E11.59 - Type 2 diabetes mellitus with other circulatory complications Plan: The patient's A1c is 13.9. His blood sugars are currently slightly over 200. One of his medications is being given in dextrose. Currently on sliding scale insulin. We'll begin Lantus 10 daily at bedtime. Continue to monitor. - Time Time Spent with patient: 15-24 minutes Anticipated discharge: Home with Homehealth - Inpatient Certification Medical Necessity: Need Close Monitoring Due to Risk of Patient Decompensation, Need for IV Antibiotics
[2016-11-05] MEDS: ONDANSETRON HCL INJ/PF 4 MG/2 ML SDV IV PRN (16:10)
--- NOTE | 2016-11-05 17:54 | PROGRESS NOTE E ---
Progress Note NAME: JEANNE DELEON : 1970 AGE: 46Y DATE: 11/05/2016 ROOM: 424 The patient remains afebrile. The VAC on the right foot remains in place. The foot itself appears to have less inflammation and edema. He denies any pains at this time. The plan is to change the VAC dressing tomorrow and check the wound for any persistent infection. DICTATING PHYSICIAN: RUTH COLVIN M.D. [id number] PHY#: [id number] ID: [id number] JOB#: [id number] ACCT: [id number] cc: >
[2016-11-05] MEDS: VANCOMYCIN HCL 1,000 MG in DEXTROSE 5%-WATER 250 ML IV SCH (23:05)
[2016-11-05] MEDS: KETOROLAC TROMETHAMINE INJ/PF 30 MG/1 ML SDV IV PRN (23:05)
[2016-11-05] MEDS: INSULIN GLARGINE,HUM.REC.ANLOG 300 UNIT/3 ML INSULN.PEN SUBCUT SCH (23:20)
[2016-11-06] MEDS: HYDRALAZINE HCL INJ/PF 20 MG/1 ML SDV IV PRN (00:44)
[2016-11-06] MEDS: OXYCODONE-ACETAMINOPHEN 5-325 MG TABLET PO PRN ×3 (00:52→19:43)
[2016-11-06] MEDS: PIPERACILLIN SODIUM/TAZOBACTAM 3.375 GM in NORMAL SALINE 100 ML IV SCH ×3 (03:53→18:13)
[2016-11-06 06:17] LABS: ABSOLUTE BASOPHILS # (AUTO) 0.1 10^3/uL (0.0-0.2); ABSOLUTE EOSINOPHILS # (AUTO) 0.3 10^3/uL (0.0-0.6); ABSOLUTE LYMPHOCYTES (AUTO) 1.6 10^3/uL (0.5-4.7); ABSOLUTE MONOCYTES (AUTO) 0.7 10^3/uL (0.1-1.4); ABSOLUTE NEUT (AUTO) 5.7 10^3/uL (1.7-8.2); BASOPHILS % (AUTO) 1.3 % (0-2); EOSINOPHILS % (AUTO) 3.2 % (0-6); HEMATOCRIT 33.8 % (37.9-51.0); HEMOGLOBIN 11.4 g/dL (13.5-17.0); HGB HCT DIFFERENCE 0.4; LYMPHOCYTES % (AUTO) 19.5 % (13-45); MEAN CORPUSCULAR HEMOGLOBIN 28.4 pg (27.0-33.4); MEAN CORPUSCULAR HGB CONC 33.7 g/dL (32.0-36.0); MEAN CORPUSCULAR VOLUME 84 fl (80-97); MONOCYTES % (AUTO) 8.4 % (3-13); RED BLOOD COUNT 4.01 10^6/uL (4.35-5.55); RED CELL DISTRIBUTION WIDTH 12.8 % (11.5-14.0); SEGMENTED NEUTROPHILS % (AUTO) 67.6 % (42-78); WHITE BLOOD COUNT 8.4 10^3/uL (4.0-10.5)
[2016-11-06 06:41] LABS: ANION GAP 8 (5-19); BLOOD UREA NITROGEN 12 mg/dL (7-20); CALCIUM 8.7 mg/dL (8.4-10.2); CARBON DIOXIDE 29 mmol/L (22-30); CHLORIDE 104 mmol/L (98-107); CREATININE RESULT 1.28 mg/dL (0.52-1.25); GLUCOSE 153 mg/dL (75-110); SODIUM 140.7 mmol/L (137-145)
[2016-11-06 06:48] LABS: POTASSIUM 3.5 mmol/L (3.6-5.0)
[2016-11-06] MEDS: ONDANSETRON HCL INJ/PF 4 MG/2 ML SDV IV PRN (08:12)
[2016-11-06] MEDS: ENOXAPARIN SODIUM INJ 40 MG/0.4 ML DISP.SYRIN SUBCUT SCH (08:12)
[2016-11-06] MEDS ORDERED: POTASSIUM CHLORIDE 10 MEQ TABLET.SA PO ONE (09:30)
[2016-11-06] MEDS: VANCOMYCIN HCL 1,000 MG in DEXTROSE 5%-WATER 250 ML IV SCH ×2 (10:22→21:51)
[2016-11-06] MEDS: NORMAL SALINE 1000 ML 1,000 ML IV PRN (11:02)
--- NOTE | 2016-11-06 15:48 | PDOC PROGRESS REPORT ---
Subjective Progress Note for:: 11/06/16 Subjective:: This is a follow-up visit for diabetic foot wound. The patient is status post amputation of his fifth digit on the right side. He states that his pain is currently under control. He feels nauseous after the IV pain medicine. He started once. I suggested that he asked for his antiemetic 30 minutes prior to taking medication. Physical Exam Vital Signs: Temp Pulse Resp BP Pulse Ox 97.8 F 113 H 16 143/85 H 92 11/06/16 15:02 11/06/16 15:02 11/06/16 15:02 11/06/16 15:02 11/06/16 15:02 Intake & Output 11/05/16 11/06/16 11/07/16 06:59 06:59 06:59 Intake Total 7131 2750 650 Output Total 3340 2160 Balance 3791 590 650 Weight 100.3 kg 100.8 kg Physical exam: Gen.: This is a well-developed well-nourished overweight -[place] male resting in bed currently in no acute distress. Heart: Regular rate and rhythm. No murmurs rubs or gallops. Lungs: Clear to auscultation bilaterally with equal rise and fall of the chest. Abdomen: Soft nontender, nondistended. Normoactive bowel sounds. Extremities: No clubbing cyanosis. There is no edema on the left side. There is trace edema of the right foot. Wound VAC in place where the amputated digit used to be. 2+ dorsalis pedis pulses bilaterally. Neuro: Awake alert oriented 3 cranial nerves II through XII are grossly intact. Psych: Affect is flat. Skin: The right foot has trace erythema through the foot. It appears much better today. Results Laboratory Results: 11/06/16 06:10 11/06/16 06:10 11/06/16 11/06/16 06:10 06:10 WBC 8.4 RBC 4.01 L Hgb 11.4 L Hct 33.8 L MCV 84 MCH 28.4 MCHC 33.7 RDW 12.8 Plt Count 307 Seg Neutrophils % 67.6 Lymphocytes % 19.5 Monocytes % 8.4 Eosinophils % 3.2 Basophils % 1.3 Absolute Neutrophils 5.7 Absolute Lymphocytes 1.6 Absolute Monocytes 0.7 Absolute Eosinophils 0.3 Absolute Basophils 0.1 Sodium 140.7 Potassium 3.5 L Chloride 104 Carbon Dioxide 29 Anion Gap 8 BUN 12 Creatinine 1.28 H Est GFR ( Amer) > 60 Est GFR (Non-Af Amer) > 60 Glucose 153 H Calcium 8.7 11/04/16 10:27 Foot - Top Gram Stain - Final 11/04/16 10:34 Foot - Tissue Gram Stain - Final Impressions: Foot X-Ray 11/03/16 15:21 IMPRESSION: Soft tissue swelling with soft tissue gas between the 4th and 5th toe proximal phalanges. Findings are certainly worrisome for cellulitis. No radiopaque foreign body. No aggressive bony erosions or periosteal new bone worrisome for osteomyelitis by plain film at this time Assessment & Plan - Diagnosis (1) Cellulitis of foot, right Plan: Continue vancomycin and Zosyn for now. General surgery consult has been placed. He is postop day 2 from right fifth digit amputation of the foot. Wound VAC is in place. Await culture results. This wound so far is growing out gram-positive cocci in clusters. I strongly suspect that this will youth ministry director to be MRSA. Therefore I'm leaving him on the above antibiotics. We'll go ahead and involve physical therapy. I will talk to discharge planning tomorrow about getting him set up with wound care at home with a wound VAC. (2) Diabetes Qualifiers: Diabetes mellitus type: type 2 Diabetes mellitus complication status: with circulatory complication Diabetes mellitus complication detail: with other circulatory complications Diabetes mellitus manager terminal insulin use: without fci use Qualified Code(s): E11.59 - Type 2 diabetes mellitus with other circulatory complications Plan: The patient's A1c is 13.9. His blood sugars this morning were less than 200. One of his medications is being given in dextrose. Currently on sliding scale insulin. Continue Lantus 10 daily at bedtime. Continue to monitor. - Time Time Spent with patient: 15-24 minutes - Inpatient Certification Medical Necessity: Need for IV Antibiotics
[2016-11-06] MEDS: KETOROLAC TROMETHAMINE INJ/PF 30 MG/1 ML SDV IV PRN (18:13)
--- NOTE | 2016-11-06 20:14 | PROGRESS NOTE E ---
Progress Note NAME: JEANNE DELEON : 1970 AGE: 46Y DATE: 11/06/2016 ROOM: 424 This is about the second postoperative day for this patient. He is afebrile. His wound VAC was changed this afternoon. I changed it, and the wound looks very clean with some bleeding. A new wound VAC was applied. [facility] will [facility], and another 24-48 hours of IV antibiotics should be sufficient and then just put him on p.o. antibiotics. He will likely need continued VAC therapy at the [facility]. DICTATING PHYSICIAN: RUTH COLVIN M.D. [id number] PHY#: [id number] ID: [id number] JOB#: [id number] ACCT: [id number] cc: >
[2016-11-06] MEDS: INSULIN GLARGINE,HUM.REC.ANLOG 300 UNIT/3 ML INSULN.PEN SUBCUT SCH (21:51)
[2016-11-06] MEDS: INSULIN REG, HUMAN 100 UNIT/ML 3 ML VIAL (PYX) SUBCUT PRN (21:51)
[2016-11-07] MEDS: PIPERACILLIN SODIUM/TAZOBACTAM 3.375 GM in NORMAL SALINE 100 ML IV SCH ×3 (03:49→17:47)
[2016-11-07 05:17] LABS: HEMATOCRIT 31.8 % (37.9-51.0); HEMOGLOBIN 10.7 g/dL (13.5-17.0); HGB HCT DIFFERENCE 0.3; MEAN CORPUSCULAR HEMOGLOBIN 28.6 pg (27.0-33.4); MEAN CORPUSCULAR VOLUME 85 fl (80-97); RED BLOOD COUNT 3.75 10^6/uL (4.35-5.55); WHITE BLOOD COUNT 7.2 10^3/uL (4.0-10.5)
[2016-11-07 05:18] LABS: ABSOLUTE BASOPHILS # (AUTO) 0.1 10^3/uL (0.0-0.2); ABSOLUTE EOSINOPHILS # (AUTO) 0.2 10^3/uL (0.0-0.6); ABSOLUTE LYMPHOCYTES (AUTO) 1.4 10^3/uL (0.5-4.7); ABSOLUTE MONOCYTES (AUTO) 0.6 10^3/uL (0.1-1.4); ABSOLUTE NEUT (AUTO) 4.9 10^3/uL (1.7-8.2); BASOPHILS % (AUTO) 1.2 % (0-2); EOSINOPHILS % (AUTO) 2.6 % (0-6); LYMPHOCYTES % (AUTO) 19.7 % (13-45); MEAN CORPUSCULAR HGB CONC 33.8 g/dL (32.0-36.0); MONOCYTES % (AUTO) 8.7 % (3-13); RED CELL DISTRIBUTION WIDTH 13.1 % (11.5-14.0); SEGMENTED NEUTROPHILS % (AUTO) 67.8 % (42-78)
[2016-11-07 05:46] LABS: ANION GAP 8 (5-19); BLOOD UREA NITROGEN 12 mg/dL (7-20); CALCIUM 8.4 mg/dL (8.4-10.2); CARBON DIOXIDE 28 mmol/L (22-30); CHLORIDE 103 mmol/L (98-107); CREATININE RESULT 1.36 mg/dL (0.52-1.25); GLUCOSE 230 mg/dL (75-110); MAGNESIUM 1.8 mg/dL (1.6-2.3); POTASSIUM 4.2 mmol/L (3.6-5.0); SODIUM 138.5 mmol/L (137-145)
[2016-11-07] MEDS: ENOXAPARIN SODIUM INJ 40 MG/0.4 ML DISP.SYRIN SUBCUT SCH (08:09)
[2016-11-07] MEDS: ACETAMINOPHEN 325 MG TABLET PO PRN (08:13)
[2016-11-07] MEDS: VANCOMYCIN HCL 1,000 MG in DEXTROSE 5%-WATER 250 ML IV SCH ×2 (14:28→21:22)
--- NOTE | 2016-11-07 15:22 | PDOC PROGRESS REPORT ---
Subjective Progress Note for:: 11/07/16 Subjective:: This is a follow-up visit for diabetic foot wound. The patient is status post amputation of his fifth digit on the right side. He states that his pain is currently under control. He tells me he worked with PT and ambulated 200 feet at the end of this session he began feeling dizzy and needed to stop. Physical Exam Vital Signs: Temp Pulse Resp BP Pulse Ox 97.3 F 106 H 17 135/82 H 89 L 11/06/16 23:05 11/06/16 23:05 11/06/16 23:05 11/06/16 23:05 11/06/16 23:05 Intake & Output 11/06/16 11/07/16 11/08/16 06:59 06:59 06:59 Intake Total 2750 1890 Output Total 2160 1280 Balance 590 610 Weight 100.8 kg 100.8 kg Physical exam: Gen.: This is a well-developed well-nourished overweight -[place] male resting in bed currently in no acute distress. Heart: Regular rate and rhythm. No murmurs rubs or gallops. Lungs: Clear to auscultation bilaterally with equal rise and fall of the chest. Abdomen: Soft nontender, nondistended. Normoactive bowel sounds. Extremities: No clubbing cyanosis. There is no edema on the left side. There is trace edema of the right foot. Wound VAC in place where the amputated digit used to be. 2+ dorsalis pedis pulses bilaterally. Neuro: Awake alert oriented 3 cranial nerves II through XII are grossly intact. Psych: Affect is flat. Skin: The right foot has trace erythema through the foot. It appears much better today. Results Laboratory Results: 11/07/16 04:18 11/07/16 04:18 11/07/16 11/07/16 04:18 04:18 WBC 7.2 RBC 3.75 L Hgb 10.7 L Hct 31.8 L MCV 85 MCH 28.6 MCHC 33.8 RDW 13.1 Plt Count 320 Seg Neutrophils % 67.8 Lymphocytes % 19.7 Monocytes % 8.7 Eosinophils % 2.6 Basophils % 1.2 Absolute Neutrophils 4.9 Absolute Lymphocytes 1.4 Absolute Monocytes 0.6 Absolute Eosinophils 0.2 Absolute Basophils 0.1 Sodium 138.5 Potassium 4.2 Chloride 103 Carbon Dioxide 28 Anion Gap 8 BUN 12 Creatinine 1.36 H Est GFR ( Amer) > 60 Est GFR (Non-Af Amer) 57 L Glucose 230 H Calcium 8.4 Magnesium 1.8 11/04/16 10:34 Foot - Tissue Gram Stain - Final 11/04/16 10:27 Foot - Top Gram Stain - Final 11/04/16 10:15 Foot - Deep Wound Gram Stain - Final Impressions: Foot X-Ray 11/03/16 15:21 IMPRESSION: Soft tissue swelling with soft tissue gas between the 4th and 5th toe proximal phalanges. Findings are certainly worrisome for cellulitis. No radiopaque foreign body. No aggressive bony erosions or periosteal new bone worrisome for osteomyelitis by plain film at this time Assessment & Plan - Diagnosis (1) Cellulitis of foot, right Plan: Continue vancomycin and Zosyn for now. General surgery is following. He is postop day 3 from right fifth digit amputation of the foot. Wound VAC is in place. Await culture results. This wound so far is growing out gram-positive cocci in clusters. I strongly suspect that this will barrel turner to be MRSA. Therefore I'm leaving him on the above antibiotics. Continue physical therapy. I have discussed his need for wound care and wound VAC with discharge planning. (2) Diabetes Qualifiers: Diabetes mellitus type: type 2 Diabetes mellitus complication status: with circulatory complication Diabetes mellitus complication detail: with other circulatory complications Diabetes mellitus assisted insulin use: without assisted use Qualified Code(s): E11.59 - Type 2 diabetes mellitus with other circulatory complications Plan: The patient's A1c is 13.9. Blood sugars have ranged from 100s to lower 200s. One of his medications is being given in dextrose. Currently on sliding scale insulin. Continue Lantus 10 daily at bedtime. Continue to monitor. Will add 5 units at mealtime insulin. (3) Flat affect Plan: Out of bed to chair. The patient has been in bed for too long. I suspect he has some underlying depression - Time Time Spent with patient: 15-24 minutes - Inpatient Certification Medical Necessity: Need for IV Antibiotics
--- NOTE | 2016-11-07 15:34 | PDOC PROGRESS REPORT ---
Subjective Progress Note for:: 11/07/16 Subjective:: No complaints; patient in chair, transferring independently; blood sugar is low 200s. VAC placed yesterday by Dr. Glaser Physical Exam Vital Signs: Temp Pulse Resp BP Pulse Ox 98.1 F 107 H 18 166/92 H 99 11/07/16 11:40 11/07/16 11:40 11/07/16 11:40 11/07/16 11:40 11/07/16 11:40 Intake & Output 11/06/16 11/07/16 11/08/16 06:59 06:59 06:59 Intake Total 2750 1890 Output Total 2160 1280 Balance 590 610 Weight 100.8 kg 100.8 kg General appearance: PRESENT: no acute distress Vascular exam: PRESENT: other - Right foot examined. Minimal edema. VAC in place. Some bloody drainage. Right fifth toe surgically absent Results Laboratory Results: 11/07/16 04:18 11/07/16 04:18 11/07/16 11/07/16 04:18 04:18 WBC 7.2 RBC 3.75 L Hgb 10.7 L Hct 31.8 L MCV 85 MCH 28.6 MCHC 33.8 RDW 13.1 Plt Count 320 Seg Neutrophils % 67.8 Lymphocytes % 19.7 Monocytes % 8.7 Eosinophils % 2.6 Basophils % 1.2 Absolute Neutrophils 4.9 Absolute Lymphocytes 1.4 Absolute Monocytes 0.6 Absolute Eosinophils 0.2 Absolute Basophils 0.1 Sodium 138.5 Potassium 4.2 Chloride 103 Carbon Dioxide 28 Anion Gap 8 BUN 12 Creatinine 1.36 H Est GFR ( Amer) > 60 Est GFR (Non-Af Amer) 57 L Glucose 230 H Calcium 8.4 Magnesium 1.8 11/04/16 10:34 Foot - Tissue Gram Stain - Final 11/04/16 10:27 Foot - Top Gram Stain - Final 11/04/16 10:15 Foot - Deep Wound Gram Stain - Final Impressions: Foot X-Ray 11/03/16 15:21 IMPRESSION: Soft tissue swelling with soft tissue gas between the 4th and 5th toe proximal phalanges. Findings are certainly worrisome for cellulitis. No radiopaque foreign body. No aggressive bony erosions or periosteal new bone worrisome for osteomyelitis by plain film at this time Assessment & Plan - Diagnosis (1) Diabetic infection of right foot Is this a current diagnosis for this admission?: YesPlan: 1. Patient 6 days status post right fifth toe amputation, now with open wound treated with wound VAC therapy and intravenous antibiotics including Zosyn and vancomycin for gram-positive streptococcal infection 2. Will change wound VAC tomorrow and determine and determine treatment plan thereafter
[2016-11-07] MEDS: INSULIN REG, HUMAN 100 UNIT/ML 3 ML VIAL (PYX) SUBCUT SCH (17:47)
[2016-11-07] MEDS: KETOROLAC TROMETHAMINE INJ/PF 30 MG/1 ML SDV IV PRN (20:34)
[2016-11-07] MEDS: INSULIN GLARGINE,HUM.REC.ANLOG 300 UNIT/3 ML INSULN.PEN SUBCUT SCH (21:22)
[2016-11-08] MEDS: PIPERACILLIN SODIUM/TAZOBACTAM 3.375 GM in NORMAL SALINE 100 ML IV SCH ×2 (01:47→10:32)
[2016-11-08] MEDS: INSULIN REG, HUMAN 100 UNIT/ML 3 ML VIAL (PYX) SUBCUT SCH ×3 (08:55→17:55)
[2016-11-08] MEDS: ENOXAPARIN SODIUM INJ 40 MG/0.4 ML DISP.SYRIN SUBCUT SCH (08:55)
[2016-11-08 09:57] LABS: CREATININE RESULT 1.45 mg/dL (0.52-1.25)
[2016-11-08] MEDS: VANCOMYCIN HCL 1,000 MG in DEXTROSE 5%-WATER 250 ML IV SCH (10:39)
[2016-11-08] MEDS ORDERED: NORMAL SALINE 1000 ML 1,000 ML IV PRN (11:38)
[2016-11-08] MEDS ORDERED: AMLODIPINE BESYLATE 10 MG TABLET PO ONE (12:00)
--- NOTE | 2016-11-08 16:03 | PDOC PROGRESS REPORT ---
Subjective Progress Note for:: 11/08/16 Subjective:: Reason for visit: Diabetic foot ulcer Hospital course: Per the providers, "JEANNE DELEON is a 46 year old - Hungarian male with a past medical history significant for diabetes mellitus who presents to the service with complaints of right foot pain and toe wound. The patient states that approximately 3-4 days ago he was checking his feet and noticed that there was blood coming from the bottom of his foot. History of diabetic foot ulcer on that same side. He says that he had pus coming from between the third and fourth toe and over time his foot began to get red. He is not certain as to whether or not he injured it. He says that he remembers hitting it on a vacuum dumper mold cleaner couple days ago but didn't think anything of it. He usually checks his feet on a daily basis by using a mirror. Last time he was seen by his strategic planning analyst was a year ago. He usually follows with a physician at [facility]. He says his last hemoglobin A1c was about a year ago and was somewhere between 11 and 12. He freely admits that he doesn't check his blood sugars and only takes his Januvia sporadically. He denies any neuropathy. He feels that he has normal sensation in his feet. In the emergency room the patient was noted to have purulent drainage from between his third and fourth digit. He was taken for x-ray of the soft tissues of the foot which showed gas collection no chase osteomyelitis. He was given 1 dose of Zosyn and one dose of vancomycin. Dr. James with general surgery was consulted to determine whether not sharp knife debridement would be necessary. The patient is status post amputation of his fifth digit on the right side. He states that his pain is currently under control. He tells me he worked with PT and ambulated 200 feet at the end of this session he began feeling dizzy and needed to stop." I inherited his care Monday, his only complaint to me is mild persistent pain in the foot, dull aching, non radiating, off/on, no other asct'd symptoms. he denies chest pain, palpitations, N/V/D. ROS: total 10 systems reviewed, positives and negatives noted above, remaining systems negative. Physical Exam Vital Signs: Temp Pulse Resp BP Pulse Ox 98.5 F 107 H 17 156/98 H 93 11/08/16 14:58 11/08/16 14:58 11/08/16 14:58 11/08/16 14:58 11/08/16 14:58 Intake & Output 11/07/16 11/08/16 11/09/16 06:59 06:59 06:59 Intake Total 1890 4052 910 Output Total 1280 1200 400 Balance 610 2852 510 Weight 100.8 kg 100.8 kg EXAM GENERAL: NAD; well developed, well nourished;mild obese; alert and oriented to person, place, time, situation HEENT: normocephalic, atraumatic; no conjunctival injection, no scleral icterus ; oral mucosa moist; RESPIRATORY: no accessory muscle use, no increased WOB, good air entry bilaterally; no wheezes, rales, rhonchi; no inspiratory crackles CARDIO: no JVD; RRR; no systolic murmur;mild tachycardia GI: soft; nondistended; normal bowel sounds; no rebound, rigidity, guarding VASCULAR: no pallor; 2+ radial; Rt foot has wound vac in place, mild proximal edema but no erythema or lymphangitic streaking EXTREMITIES: no calf tender; no palpable cords in calf PSYCH: normal affect, normal mood SKIN: warm; moist; no petechiae; no telengectasias; no jaundice Results Laboratory Results: 11/07/16 04:18 11/08/16 09:20 11/08/16 09:20 Creatinine 1.45 H Est GFR ( Amer) > 60 Est GFR (Non-Af Amer) 53 L 11/04/16 10:34 Foot - Tissue Gram Stain - Final 11/04/16 10:34 Foot - Tissue Wound Culture - Final Group B Beta Streptococcus Staphylococcus Aureus Staphylococcus Lugdunensis No Anaerobic Organisms 11/04/16 10:27 Foot - Top Gram Stain - Final 11/04/16 10:27 Foot - Top Wound Culture - Final Group B Beta Streptococcus Staphylococcus Aureus Staphylococcus Lugdunensis No Anaerobic Organisms 11/04/16 10:15 Foot - Deep Wound Gram Stain - Final 11/04/16 10:15 Foot - Deep Wound Wound Culture - Final Group B Beta Streptococcus Staphylococcus Aureus Staphylococcus Lugdunensis No Anaerobic Organisms 11/04/16 10:14 Foot - Superficial Gram Stain - Final Assessment & Plan - Diagnosis (1) Cellulitis of foot, right Is this a current diagnosis for this admission?: YesPlan: Case discussed with covering surgeon, Dr. Robbins who will evaluate later today with take down of wound VAC and decide on how to proceed with ongoing bandages/ wound care. (2) Diabetic ulcer of foot associated with diabetes mellitus due to underlying condition, with necrosis of bone Qualifiers: Diabetic foot ulcer location: unspecified part of foot Laterality: right Qualified Code(s): E08.621 - Diabetes mellitus due to underlying condition with foot ulcer; L97.504 - Non-pressure chronic ulcer of other part of unspecified foot with necrosis of bone Is this a current diagnosis for this admission?: YesPlan: Stable. Status post amputation. (3) ASCENCION (acute kidney injury) Is this a current diagnosis for this admission?: YesPlan: Worsening. Unclear etiology. Adjust antibiotics and hydrate with 1 L IV fluids and reevaluate in the morning. (4) Accelerated hypertension Is this a current diagnosis for this admission?: YesPlan: Worse. Add Norvasc and monitor for effect. Ideally would like to add JOSE inhibitor but with declining renal function that would be relatively contraindicated at this time. - Time Time Spent with patient: 25-34 minutes Anticipated discharge: Home with Homehealth Within: within 48 hours
[2016-11-08] MEDS: HYDROMORPHONE HCL INJ/PF 2 MG/ML AMPULE IV PRN ×2 (17:56→23:39)
[2016-11-08] MEDS: CEFEPIME HCL 2 GM in DEXTROSE 5%-WATER 50 ML IV SCH (21:39)
[2016-11-08] MEDS: HYDRALAZINE HCL INJ/PF 20 MG/1 ML SDV IV PRN (21:55)
[2016-11-08] MEDS: INSULIN GLARGINE,HUM.REC.ANLOG 300 UNIT/3 ML INSULN.PEN SUBCUT SCH (21:55)
[2016-11-08] MEDS: VANCOMYCIN HCL 750 MG in DEXTROSE 5%-WATER 250 ML IV SCH (23:10)
--- NOTE | 2016-11-09 02:23 | PROGRESS NOTE E ---
Progress Note NAME: JEANNE DELEON : 1970 AGE: 46Y DATE: 11/08/2016 ROOM: 424 The patient is 4 days out from incision and drainage of the abscess, right lateral foot and fifth digit tarsometatarsal amputation. He has had a wound VAC on the wound. He has been on antibiotics for cellulitis. SUBJECTIVE: No complaints of significant foot pain. OBJECTIVE: EXTREMITIES: The patient's wound is clean without any drainable abscess. Cellulitis has almost resolved. DIAGNOSTIC DATA: White blood cell count 7.2 yesterday. ASSESSMENT: RIGHT DIABETIC FOOT INFECTION, STATUS POST TARSOMETATARSAL AMPUTATION, FIFTH DIGIT AND DRAINAGE OF ABSCESS. He is currently on intravenous antibiotics for staphylococcus and streptococcus in the wound, which is sensitive too. He has a wound VAC. The infection has almost resolved. PLAN: The patient may be discharged home on 11/09/16 with oral antibiotics along with wound VAC. He is to have the wound VAC changed at home. He will follow up in wound clinic in regard to the wound VAC and any wound VAC change if not done at home. DICTATING PHYSICIAN: SERGIO SANTOS M.D. [id number] PHY#: [id number] ID: [id number] JOB#: [id number] ACCT: [id number] cc: >
[2016-11-09] MEDS: ACETAMINOPHEN 325 MG TABLET PO PRN ×2 (03:22→21:29)
[2016-11-09] MEDS: INSULIN REG, HUMAN 100 UNIT/ML 3 ML VIAL (PYX) SUBCUT SCH ×3 (08:00→17:00)
[2016-11-09] MEDS: ENOXAPARIN SODIUM INJ 40 MG/0.4 ML DISP.SYRIN SUBCUT SCH (08:00)
[2016-11-09] MEDS: AMLODIPINE BESYLATE 10 MG TABLET PO SCH (10:00)
[2016-11-09] MEDS: VANCOMYCIN HCL 750 MG in DEXTROSE 5%-WATER 250 ML IV SCH ×2 (10:00→21:59)
[2016-11-09] MEDS: CEFEPIME HCL 2 GM in DEXTROSE 5%-WATER 50 ML IV SCH ×2 (10:00→21:20)
--- NOTE | 2016-11-09 16:40 | PROGRESS NOTE E ---
Progress Note NAME: JEANNE DELEON : 1970 AGE: 46Y DATE: 11/09/2016 ROOM: 424 SUBJECTIVE: The patient reports nausea with vomiting this morning shortly after eating breakfast. This is a new problem for him. He denies abdominal pain and chest pain. He states that it came on rather suddenly with a projectile nature and he still remains queasy ever since. He reports having upwards of 4 bowel movements per day as before, with his last one occurring approximately 30 minutes prior to this event. He denies any choking, coughing or gagging while eating. In fact, he got most of his breakfast down and did not feel nauseous until shortly thereafter. He also reports a metallic taste in his mouth. OBJECTIVE: Nurse's notes were reviewed with the nurse at the bedside. VITAL SIGNS: Stable. GENERAL: I find him resting in bed without any distress; however, he appears more ill today than he did yesterday. His color is not as good and his eyes seem troubled. HEENT: His oral mucosa is moist and pink with no adenopathy about the head or neck. CHEST: Clear to auscultation bilaterally. ABDOMEN: Moderately obese, soft, nontender, nondistended, with good bowel sounds throughout. Deep palpation through all 4 quadrants fails to elicit any discomfort, including the right upper quadrant and epigastrium area. EXTREMITIES: The right foot wound VAC has been changed and downsized to a much smaller sponge. There is much less edema and no erythema or lymphangitic streaking as was previously described by Dr. Martínez. The patient's pain in this area is minimal to palpation. ASSESSMENT: 1. NAUSEA WITH VOMITING, UNCLEAR ETIOLOGY, THOUGH I SUSPECT RELATED TO THE ANTIBIOTICS BEING USED. 2. DIABETIC FOOT ULCER WITH CELLULITIS. PLAN: To continue current antibiotics. I discussed the case with Dr. Robbins, the covering surgeon, who recommended the wound VAC stay in place for an additional 1-2 weeks with Home Health Nursing and a Wound Care Clinic followup at least once during this time. He also recommended an additional 7 days of oral antibiotics once the patient is stable for discharge. The nausea and vomiting makes me leery to get him discharged to home today. I think we should try at least one other meal and see how he does. We may need to pursue this a little further depending on how the day progresses. DICTATING PHYSICIAN: KAVITA BARRETT M.D. [id number] PHY#: [id number] ID: [id number] JOB#: [id number] ACCT: [id number] cc: >
[2016-11-09] MEDS: INSULIN GLARGINE,HUM.REC.ANLOG 300 UNIT/3 ML INSULN.PEN SUBCUT SCH (21:59)
[2016-11-09] MEDS: HYDROMORPHONE HCL INJ/PF 2 MG/ML AMPULE IV PRN (23:19)
[2016-11-10] MEDS: ONDANSETRON HCL INJ/PF 4 MG/2 ML SDV IV PRN (03:31)
--- NOTE | 2016-11-10 07:33 | PROGRESS NOTE E ---
Progress Note NAME: JEANNE DELEON : 1970 AGE: 46Y DATE: 11/09/2016 ROOM: 424 SUBJECTIVE: The patient underwent transmetatarsal amputation right foot, fifth digit, and drainage of abscess in the foot. He has had wound VAC applied and is receiving IV antibiotics. OBJECTIVE: The patient's wound VAC is sealed, it was changed yesterday. The wound was clean without any evidence of significant infection. ASSESSMENT: STATUS POST TRANSMETATARSAL AMPUTATION FIFTH DIGIT WITH WOUND VAC APPLIED. The wound VAC is functioning well. The organisms growing out of the wound is sensitive to oral antibiotics. PLAN: 1. I recommend the patient be discharged home on oral antibiotics for a week. 2. Continue the wound VAC which will be changed by home health and he will also followup in Wound Care Clinic. DICTATING PHYSICIAN: SERGIO SANTOS M.D. [id number] PHY#: [id number] ID: [id number] JOB#: [id number] ACCT: [id number] cc: >
[2016-11-10] MEDS: ENOXAPARIN SODIUM INJ 40 MG/0.4 ML DISP.SYRIN SUBCUT SCH (08:59)
[2016-11-10] MEDS: INSULIN REG, HUMAN 100 UNIT/ML 3 ML VIAL (PYX) SUBCUT SCH ×2 (08:59→12:09)
[2016-11-10 10:14] LABS: CREATININE RESULT 1.24 mg/dL (0.52-1.25)
[2016-11-10] MEDS: AMLODIPINE BESYLATE 10 MG TABLET PO SCH (11:57)
[2016-11-10] MEDS: VANCOMYCIN HCL 750 MG in DEXTROSE 5%-WATER 250 ML IV SCH ×2 (12:23→23:58)
[2016-11-10] MEDS: CEFEPIME HCL 2 GM in DEXTROSE 5%-WATER 50 ML IV SCH ×2 (16:32→23:04)
[2016-11-10 17:52] LABS: BLOOD UREA NITROGEN 12 mg/dL (7-20); CARBON DIOXIDE 27 mmol/L (22-30); CHLORIDE 104 mmol/L (98-107); CREATININE RESULT 1.35 mg/dL (0.52-1.25); GLUCOSE 159 mg/dL (75-110); POTASSIUM 3.8 mmol/L (3.6-5.0)
[2016-11-10 17:53] LABS: ANION GAP 10 (5-19); SODIUM 141.3 mmol/L (137-145)
[2016-11-10] MEDS: INSULIN GLARGINE,HUM.REC.ANLOG 300 UNIT/3 ML INSULN.PEN SUBCUT SCH (23:04)
[2016-11-10] MEDS: INSULIN REG, HUMAN 100 UNIT/ML 3 ML VIAL (PYX) SUBCUT PRN (23:04)
[2016-11-11] MEDS: INSULIN REG, HUMAN 100 UNIT/ML 3 ML VIAL (PYX) SUBCUT SCH ×3 (03:57→18:39)
--- NOTE | 2016-11-11 08:04 | DISCHARGE SUMMARY E ---
Discharge Summary NAME: JEANNE DELEON : 1970 AGE: 46Y ADMITTED: 11/03/2016 DISCHARGED: 11/10/2016 DISCHARGE DIAGNOSES: 1. Diabetic foot ulcer with cellulitis on the right, status post 5th digit amputation and wound VAC placement. 2. Acute kidney injury. 3. Accelerated hypertension. 4. Diabetes. DISCHARGE MEDICATIONS: 1. Acetaminophen as needed. 2. Amlodipine 10 mg daily. 3. Augmentin 875/125 mg b.i.d. for 10 days. 4. [place] 5/325 mg q.6 h. p.r.n., a total of 10, no refills. 5. Loperamide 10 mg daily as needed. 6. Magic mouthwash 5 mL q.i.d. for 10 days. 7. Promethazine 25 mg q.4 h. as needed. 8. Januvia 25 mg daily. CHIEF COMPLAINT: Right foot pain. CONSULTATIONS: General surgery. HOSPITAL COURSE: The patient is a 46-year-old with a past medical history significant for diabetes, presents to the hospital with complaints of right foot pain and a toe wound. He states approximately 3-4 days ago he was checking his feet and noticed there was blood coming from the bottom of his right foot. He has a history of diabetic foot ulcer on that same side. He said he had pus coming from between the 3rd and 4th toes and over time his foot began to swell and turn red. He is not certain as to whether or not he injured it. He says he does remember hitting it on a vacuum pipe cleaner a few days prior but did not think anything of it at the time. He usually checks his feet on a daily basis using a mirror. He was seen by a facility maintenance supervisor last over a year ago. He usually follows with physician and states his last hemoglobin A1c was about a year ago and between 11-12. He freely admits he does not check his blood sugars on a regular basis and takes his Januvia only sporadically. In the emergency department he was noted to have purulent drainage between his 3rd and 4th digit and taken for x-rays of the soft tissues which showed gas collection but no chase osteomyelitis. He was treated with antibiotics and Dr. Santiago was consulted. He subsequently underwent amputation of the 5th digit of his right foot and wound VAC was placed. He continued on antibiotics with good improvement in the erythema and lymphangitic streaking of the right foot. Dr. Robbins, covering surgeon, took down the wound VAC and replaced with a smaller sponge and recommends continuing for an additional 1-2 weeks with output Wound Care Clinic followup. He agrees with an additional 7-10 days of antibiotics. Culture of the wound was polymicrobial and likely to be as much contaminant as a true pathogen. On the day of discharge the patient is alert and oriented and hemodynamically stable and safe for discharge. He is lying in bed without difficulty or distress. He is breathing easily without distress, good air movement bilaterally. Cardiac is regular rate and rhythm. Abdomen is soft, nontender and nondistended with good bowel sounds. The right lower extremity has the wound VAC in place with only a scant amount of purulent fluid there with resolution of the surrounding erythema and edema, and he is in fact stable for discharge at this time. He expresses no concerns about going home at this time. The prompt care rn was working on home health with residential to continue wound VAC treatment as an outpatient. DICTATING PHYSICIAN: KAVITA BARRETT M.D. [id number] PHY#: [id number] ID: [id number] JOB#: [id number] ACCT: [id number] cc:SANDY VIGIL M.D., LARRY M.D. >
[2016-11-11] MEDS: ENOXAPARIN SODIUM INJ 40 MG/0.4 ML DISP.SYRIN SUBCUT SCH (14:48)
[2016-11-11] MEDS: CEFEPIME HCL 2 GM in DEXTROSE 5%-WATER 50 ML IV SCH (15:10)
[2016-11-11] MEDS: AMLODIPINE BESYLATE 10 MG TABLET PO SCH (15:10)
[2016-11-11] MEDS: VANCOMYCIN HCL 750 MG in DEXTROSE 5%-WATER 250 ML IV SCH (15:11)
--- NOTE | 2016-11-11 16:03 | Progress Note ---
Provider Note Provider Note: pt's d/c was delayed due to logistical difficulties related to wound vac and home health. those issues are now resolved and he can be safely discharged home. see d/c summ for details.
[2016-11-11 18:28] VITALS: BP 110/51
[2016-11-11] MEDS: INSULIN REG, HUMAN 100 UNIT/ML 3 ML VIAL (PYX) SUBCUT PRN (18:39)
== END 2016-11-11 20:57 | disposition home health service (06) | DRG 617 ==
LOC: ER 13:36 → EH 17:43 → UNDOADMIN 17:50 → 4S 21:25
PROVIDERS: ADMIT Hospitalist; ATTEND Hospitalist
PROC: 0HBMXZZ Excision of Right Foot Skin, External Approach (ICD-10-PCS; 2016-11-04)
PROC: 0Y9M0ZZ Drainage of Right Foot, Open Approach (ICD-10-PCS; 2016-11-04)
PROC: 2W1SX6Z Compression of Right Foot using Pressure Dressing (ICD-10-PCS; 2016-11-04)
PROC: 0Y6X0Z0 Detachment at Right 5th Toe, Complete, Open Approach (ICD-10-PCS; principal; 2016-11-04 09:00)
DX: E11.621 Type 2 diabetes mellitus with foot ulcer (principal); L03.115 Cellulitis of right lower limb; B95.1 Streptococcus, group B, as the cause of diseases classified elsewhere; B95.61 Methicillin susceptible Staphylococcus aureus infection as the cause of diseases classified elsewhere; N17.9 Acute kidney failure, unspecified; L84 Corns and callosities; I10 Essential (primary) hypertension; F32.9 Major depressive disorder, single episode, unspecified; Z79.4 Long term (current) use of insulin; Z79.899 Other long term (current) drug therapy
CPT/HCPCS: 01480; 36415; 80048; 80202; 82565; 82962; 83036; 83735; 84443; 85025; 87040; 87070; 87075; 87077; 87186; 87205; 88305; 93005; 93010; 96365; 96375; 99284; J0131; J0330; J0360; J0692; J1170; J1650; J1815; J1885; J2250; J2270; J2405; J2543; J2704; J2765; J3010; J3370; J3490; J7030; J7060; S0028

== ENCOUNTER 2016-11-17 11:55 | Inpatient (IN) | payer SELFPAY ==
--- NOTE | 2016-11-17 12:14 | ER Document Report ---
ED Medical Screen (RME) - General Chief Complaint: Breathing Difficulty Stated Complaint: RIGHT LEG PAIN/POST OP COMPLICATIONS Time Seen by Provider: 11/17/16 12:05 Notes: Patient is here because he is having difficulty breathing for the past 3 days. Patient had surgery on his right foot 1 week ago at this hospital. He had an amputation of the fifth digit. Since she has been home, he has done well until he started coughing a lot for the last 3 days. He is not producing much phlegm. Has not had a fever. Both legs were swollen when he was discharged, but he has had seeping from the top of his right foot where the surgery occurred as well as seeping from the anterior aspect of the right lower leg which started about 2 days ago. Patient has no history of any lung disease such as asthma or COPD. Not a smoker. PMH: NIDDM TRAVEL OUTSIDE OF THE [place] IN LAST 30 DAYS: No - Related Data Allergies/Adverse Reactions: No Known Allergies Allergy (Verified 11/03/16 14:55) Past Medical History Pulmonary Medical History: Reports: Hx Bronchitis Endocrine Medical History: Reports: Hx Diabetes Mellitus Type 2 Renal/ Medical History: Denies: Hx Peritoneal Dialysis Psychiatric Medical History: Reports: Hx Depression Past Surgical History: Reports: Hx Orthopedic Surgery, Other - Removal of "tumor " from the right thigh, removal of multiple boils - Immunizations Hx Diphtheria, Pertussis, Tetanus Vaccination: No Physical Exam - Vital signs Vitals: Temp Pulse Resp BP Pulse Ox 99.0 F 122 H 34 H 143/83 H 82 L 11/17/16 11:59 11/17/16 11:59 11/17/16 11:59 11/17/16 11:59 11/17/16 11:59 Course - Vital Signs Vital signs: Temp Pulse Resp BP Pulse Ox 99.0 F 122 H 34 H 143/83 H 82 L 11/17/16 11:59 11/17/16 11:59 11/17/16 11:59 11/17/16 11:59 11/17/16 11:59
[2016-11-17] MEDS ORDERED: NORMAL SALINE 1000 ML 1,000 ML IV ONE (12:26)
--- NOTE | 2016-11-17 12:26 | ER Document Report ---
ED Respiratory Problem - General Information source: Patient, [facility] Records TRAVEL OUTSIDE OF THE [place] IN LAST 30 DAYS: No - HPI Patient complains to provider of: Short of breath Duration: Worse/persistent Severity: Severe Short of Breath: Severe Recently seen / treated by doctor: Yes <MARTHA LEVIN - Last Filed: 11/17/16 13:37> <JODY RILEY - Last Filed: 11/17/16 17:33> - General Chief Complaint: Breathing Difficulty Stated Complaint: RIGHT LEG PAIN/POST OP COMPLICATIONS Time Seen by Provider: 11/17/16 12:05 Notes: Patient is a 46-year-old male that presents to the emergency department today with complaints of shortness of breath. Patient had a right toe amputation on and was discharged on 11/11/2016. According to family at bedside, the patient did not use his wound VAC until yesterday. She states that she has not had it covered appropriately. Patient states he was supposed to call home health to come out to his house but he never did. Patient states he fell 3 times since being discharged to home. Patient denies any fevers, history of asthma, or history of smoking. (MARTHA LEVIN) - Related Data Allergies/Adverse Reactions: No Known Allergies Allergy (Verified 11/03/16 14:55) Home Medications: Current Home Medications Acetaminophen [Tylenol Extra Strength 500 mg Tablet] 1 tab PO DAILYP PRN [History] Amlodipine Besylate [Norvasc 10 mg Tablet] 10 mg PO DAILY 11/17/16 [History] Amox Tr/Potassium Clavulanate [Augmentin 875-125 mg Tablet] 1 tab PO BID [History] Hydrocodone/Acetaminophen [[place] 5-325 mg Tablet] 1 tab PO Q6HP PRN 11/17/16 [ History] Loperamide HCl [Loperamide] 2 mg PO DAILY 11/17/16 [History] Promethazine HCl [Phenergan 25 mg Tablet] 25 mg PO Q4HP PRN 11/17/16 [History] Sitagliptin Phosphate [Januvia 25 mg Tablet] 25 mg PO DAILY 11/17/16 [History] Past Medical History - General Information source: Patient, [facility] Records - Social History Smoking Status: Never Smoker Cigarette use (# per day): No Chew tobacco use (# tins/day): No Frequency of alcohol use: None Drug Abuse: None Lives with: Family Family History: Reviewed & Not Pertinent, CAD, DM, Hypertension Pulmonary Medical History: Reports: Hx Bronchitis, Hx Pneumonia Endocrine Medical History: Reports: Hx Diabetes Mellitus Type 2 Psychiatric Medical History: Reports: Hx Depression Past Surgical History: Reports: Hx Orthopedic Surgery - Right 5th toe amputation , Other - Removal of "tumor" from the right thigh, removal of multiple boils - Immunizations Hx Diphtheria, Pertussis, Tetanus Vaccination: No Hx Pneumococcal Vaccination: 10/05/13 <MARTHA LEVIN - Last Filed: 11/17/16 13:37> Review of Systems - Review of Systems Constitutional: No symptoms reported EENT: No symptoms reported Cardiovascular: No symptoms reported Respiratory: See HPI, Short of breath Gastrointestinal: No symptoms reported Genitourinary: No symptoms reported Male Genitourinary: No symptoms reported Musculoskeletal: No symptoms reported Skin: See HPI, Other - Right 5th digit on lower extremity wound infection Hematologic/Lymphatic: No symptoms reported Neurological/Psychological: No symptoms reported -: Yes All other systems reviewed and negative <MARTHA LEVIN - Last Filed: 11/17/16 13:37> Physical Exam - Vital signs Interpretation: Hypertensive, Tachycardic, Hypoxic, Tachypneic - General General appearance: Alert In distress: Severe - HEENT Head: Normocephalic, Other - abrasion to R head Cornea: Other - subconjunctival hemorrhage, L eye Extraocular movements intact: Yes Pupils: PERRL Mucous membranes: Dry Pharynx: Normal - Respiratory Respiratory status: Respiratory distress, Tachypnea Breath sounds: Rales, Rhonchi - b/l throughout - Cardiovascular Rhythm: Regular, Tachycardia - Abdominal Inspection: Normal Bowel sounds: Normal Tenderness: Nontender - Back Back: Normal - Neurological Neuro grossly intact: Yes Orientation: AAOx4 Warren Coma Scale Eye Opening: Spontaneous [place] Coma Scale Verbal: Oriented Zachariah Coma Scale Motor: Obeys Commands Zachariah Coma Scale Total: 15 - Psychological Associated symptoms: Flat affect - Skin Skin Temperature: Warm Skin Moisture: Dry Skin Color: Normal <JODY RILEY - Last Filed: 11/17/16 17:33> - Vital signs Vitals: Temp Pulse Resp BP Pulse Ox 99.0 F 122 H 34 H 143/83 H 82 L 05/25/17 11:59 11/17/16 11:59 11/17/16 11:59 11/17/16 11:59 11/17/16 11:59 Course - Laboratory Result Diagrams: 11/17/16 12:25 11/17/16 12:25 - Consults Dr. Santiago Time consulted: 13:37 Consulted provider: will see as inpatient, other - spoke with Dr. Santiago in person , will consult <MARTHA LEVIN - Last Filed: 11/17/16 13:37> - Laboratory Result Diagrams: 11/17/16 12:25 11/17/16 12:25 - Diagnostic Test Radiology reviewed: Image reviewed, Reports reviewed - EKG Interpretation by Me EKG shows normal: Sinus rhythm Rate: Tachycardia <JODY RILEY - Last Filed: 11/17/16 17:33> - Re-evaluation Re-evalutation: 11/17/16 Patient is a 46-year-old male who comes in with difficulty breathing. Patient had a recent amputation and debridement of his right foot and was admitted to the hospital. Patient has not followed up. Patient apparently has had trouble breathing over the last day. History of bronchitis. Denies asthma. Denies heart failure. Patient also has fallen 3 times since yesterday. Head CT within normal limits. Chest x-ray with concern for fluid overload and bilateral pneumonia. Patient presented tachypneic and hypoxic. Improved with oxygen and then began to have increased trouble breathing and was placed on BiPAP. Patient has been discussed with Dr. Santiago from surgery, although given his respiratory status, he will not be suitable for the OR today. Wound culture has been sent of his foot. No streaking erythema. Patient has been discussed with the hospitalist service and will be admitted to the ICU. He has been started on antibiotic. Cultures have been sent. Patient agrees with this plan. Stable time of admission. Of note, the patient had a CTA ordered and there was a delay in getting the results but there is no evidence for PE at this time. CT is consistent with pneumonia and fluid overload as well. (JODY RILEY) - Vital Signs Vital signs: Temp Pulse Resp BP Pulse Ox 99.0 F 122 H 27 H 146/96 H 98 11/17/16 11:59 11/17/16 11:59 11/17/16 15:01 11/17/16 14:34 11/17/16 15:01 - Laboratory Laboratory results interpreted by me: 11/17/16 11/17/16 11/17/16 12:25 12:25 12:25 RBC 3.49 L Hgb 9.8 L Hct 29.8 L RDW 14.2 H VBG pH 7.43 H BUN 28 H Creatinine 1.51 H Est GFR (Non-Af Amer) 50 L Glucose 252 H Direct Bilirubin 0.5 H NT-Pro-B Natriuret Pep 11/17/16 12:25 RBC Hgb Hct RDW VBG pH BUN Creatinine Est GFR (Non-Af Amer) Glucose Direct Bilirubin NT-Pro-B Natriuret Pep 3740 H Critical Care Note - Critical Care Note Total time excluding time spent on procedures (mins): 90 - Evaluation and management of respiratory distress, multiple re-evaluations, counseling of patient, discussion with specialist, coronation of admission, initiation of BiPAP <JODY RILEY - Last Filed: 11/17/16 17:33> Discharge <MARTHA LEVIN - Last Filed: 11/17/16 13:37> - Discharge Admitting Provider: [facility] Unit Admitted: ICU <JODY RILEY - Last Filed: 11/17/16 17:33> - Discharge Clinical Impression: Diabetic infection of right foot, Respiratory distress, Hypoxemia Pneumonia Qualifiers: Pneumonia type: due to unspecified organism Laterality: bilateral Lung location : lower lobe of lung Qualified Code(s): J18.9 - Pneumonia, unspecified organism Syncope Qualifiers: Syncope type: unspecified Qualified Code(s): R55 - Syncope and collapse Injury of head Qualifiers: Encounter type: initial encounter Qualified Code(s): S09.90XA - Unspecified injury of head, initial encounter Condition: Fair Disposition: ADMITTED INPATIENT Scribe Attestation: 11/17/16 17:33 I personally performed the services described in the documentation, reviewed and edited the documentation which was dictated to the scribe in my presence, and it accurately records my words and actions. (JODY RILEY) Scribe Documentation - Scribe Written by Scribe:: Ludmila Whitehead, 11/17/16 1246 acting as scribe for :: Jan <MARTHA LEVIN - Last Filed: 11/17/16 13:37>
[2016-11-17 12:47] LABS: VENOUS BLOOD BASE EXCESS 3.7 mmol/L; VENOUS BLOOD HCO3 28.4 mmol/L (20-32); VENOUS BLOOD PCO2 43.5 mmHg (35-63); VENOUS BLOOD PH 7.43 (7.30-7.42)
[2016-11-17 12:48] LABS: PROTHROMBIN TIME 13.5 SEC (11.4-15.4)
[2016-11-17 12:52] LABS: ABSOLUTE BASOPHILS # (AUTO) 0.1 10^3/uL (0.0-0.2); ABSOLUTE EOSINOPHILS # (AUTO) 0.1 10^3/uL (0.0-0.6); ABSOLUTE LYMPHOCYTES (AUTO) 1.4 10^3/uL (0.5-4.7); ABSOLUTE MONOCYTES (AUTO) 0.7 10^3/uL (0.1-1.4); BASOPHILS % (AUTO) 0.7 % (0-2); EOSINOPHILS % (AUTO) 0.7 % (0-6); HEMATOCRIT 29.8 % (37.9-51.0); HEMOGLOBIN 9.8 g/dL (13.5-17.0); HGB HCT DIFFERENCE -0.4; LYMPHOCYTES % (AUTO) 13.8 % (13-45); MEAN CORPUSCULAR HGB CONC 32.7 g/dL (32.0-36.0); MEAN CORPUSCULAR VOLUME 86 fl (80-97); MONOCYTES % (AUTO) 7.2 % (3-13); RED BLOOD COUNT 3.49 10^6/uL (4.35-5.55); RED CELL DISTRIBUTION WIDTH 14.2 % (11.5-14.0); SEGMENTED NEUTROPHILS % (AUTO) 77.6 % (42-78); WHITE BLOOD COUNT 10.3 10^3/uL (4.0-10.5)
[2016-11-17 13:13] LABS: ALANINE AMINOTRANSFERASE 23 U/L (21-72); ALBUMIN 3.6 g/dL (3.5-5.0); ALKALINE PHOSPHATASE 77 U/L (38-126); ANION GAP 10 (5-19); ASPARTATE AMINO TRANSFERASE 30 U/L (17-59); BILIRUBIN,DIRECT 0.5 mg/dL (0.0-0.4); BILIRUBIN,TOTAL 0.7 mg/dL (0.2-1.3); BLOOD UREA NITROGEN 28 mg/dL (7-20); CALCIUM 8.8 mg/dL (8.4-10.2); CARBON DIOXIDE 29 mmol/L (22-30); CHLORIDE 103 mmol/L (98-107); CREATININE RESULT 1.51 mg/dL (0.52-1.25); GLUCOSE 252 mg/dL (75-110); POTASSIUM 4.1 mmol/L (3.6-5.0); SODIUM 141.7 mmol/L (137-145); TOTAL PROTEIN 7.8 g/dL (6.3-8.2)
--- NOTE | 2016-11-17 13:16 | RADIOLOGY REPORT (SQ) ---
EXAM DESCRIPTION: CHEST SINGLE VIEW COMPLETED DATE/TIME: 11/17/2016 1:03 pm REASON FOR STUDY: Short of breath, O2 sat 83% on room air COMPARISON: 06/27/2016. EXAM PARAMETERS: NUMBER OF VIEWS: One view. TECHNIQUE: Single frontal radiographic view of the chest acquired. RADIATION DOSE: NA LIMITATIONS: None. FINDINGS: LUNGS AND PLEURA: Increased density seen in the parahilar regions bilaterally left greater than right suggesting pulmonary edema. Pneumonia is additional consideration. No significant effus ion. MEDIASTINUM AND HILAR STRUCTURES: No masses. Contour normal. HEART AND VASCULAR STRUCTURES: Heart normal in size. Normal vasculature. BONES: No acute findings. HARDWARE: None in the chest. OTHER: No other significant finding. IMPRESSION: Increased parahilar density, left greater than right with differential including pulmona ry edema and pneumonia. TECHNICAL DOCUMENTATION: JOB ID: [id number]
--- NOTE | 2016-11-17 13:17 | RADIOLOGY REPORT (SQ) ---
EXAM DESCRIPTION: FOOT RIGHT COMPLETE COMPLETED DATE/TIME: 11/17/2016 1:03 pm REASON FOR STUDY: wound, evaluate for osteo COMPARISON: 11/03/2016 NUMBER OF VIEWS: Three views. TECHNIQUE: AP, lateral and oblique radiographic images acquired of the right foot. LIMITATIONS: None. FINDINGS: MINERALIZATION: Normal. BONES: The 5th toe is amputated and the distal aspect of the 5th metatarsal is absent as well. There are no osseous changes suggesting bone destruction. JOINTS: No effusions. SOFT TISSUES: There is no gas in the soft tissues. There is soft tissue swelling. OTHER: No other significant finding. IMPRESSION: The uneven edges of the metatarsal amputation are seen. There is no bone destruction to suggest osteomyelitis. TECHNICAL DOCUMENTATION: JOB ID: [id number] [employer]- All Rights Reserved
--- NOTE | 2016-11-17 13:31 | RADIOLOGY REPORT (SQ) ---
EXAM DESCRIPTION: CT HEAD WITHOUT COMPLETED DATE/TIME: 11/17/2016 1:16 pm REASON FOR STUDY: fall, head injury COMPARISON: None. TECHNIQUE: Axial images acquired through the brain without intravenous contrast. Images reviewed wi th bone, brain and subdural windows. Images stored on PACS. All CT scanners at this facility use dose modulation, iterative reconstruction, and/or weight based d osing when appropriate to reduce radiation dose to as low as reasonably achievable (ALARA). [facility]: Dose Right [facility]: CareDose [facility]: Dose Right [facility]: Teradose 4D [facility]: [employer]Exchange RADIATION DOSE: 63.31 mGy. LIMITATIONS: None. FINDINGS: VENTRICLES: Normal size and contour. CEREBRUM: No masses. No hemorrhage. No midline shift. Normal wilson/white matter differentiation. N o evidence for acute infarction. CEREBELLUM: No masses. No hemorrhage. No alteration of density. No evidence for acute infarction. EXTRAAXIAL SPACES: No fluid collections. No masses. ORBITS AND GLOBE: No intra- or extraconal masses. Normal contour of globe without masses. CALVARIUM: No fracture. PARANASAL SINUSES: No fluid or mucosal thickening. SOFT TISSUES: No mass or hematoma. OTHER: No other significant finding. IMPRESSION: No acute intracranial abnormality identified. No skull fracture. TECHNICAL DOCUMENTATION: JOB ID: [id number] Quality ID # [id number]: Final reports with documentation of one or more dose reduction techniques (e.g., Au tomated exposure control, adjustment of the mA and/or kV according to patient size, use of iterative reconstruction technique) 2010 [employer]- All Rights Reserved
[2016-11-17 13:36] LABS: CREATINE KINASE MB 0.65 ng/mL (<4.55)
[2016-11-17 13:38] LABS: TROPONIN I 0.071 ng/mL
[2016-11-17] MEDS ORDERED: CEFEPIME 2 GM/D5W RTU 50 ML IV ONE (15:07)
[2016-11-17] MEDS ORDERED: LEVOFLOXACIN 750 MG/D5W RTU 150 ML IV ONE (15:08)
[2016-11-17] MEDS ORDERED: VANCOMYCIN HCL INJ 1000 MG VIAL IV ONE (15:09)
[2016-11-17] MEDS ORDERED: 1/2 NORMAL SALINE 1,000 ML IV PRN (15:22)
[2016-11-17 16:24] LABS: APPEARANCE,URINE SLIGHTLY-CLOUDY; BILIRUBIN,URINE NEGATIVE (NEGATIVE); GLUCOSE, URINE >=500 mg/dL (NEGATIVE); KETONES,URINE NEGATIVE (NEGATIVE); LEUKOCYTE ESTERASE,URINE NEGATIVE (NEGATIVE); NITRITE,URINE NEGATIVE (NEGATIVE); PROTEIN,URINE >=500 mg/dL (NEGATIVE); URINE SPECIFIC GRAVITY 1.025; UROBILINOGEN,URINE NEGATIVE mg/dL (<2.0)
[2016-11-17] MEDS ORDERED: ENOXAPARIN SODIUM INJ 40 MG/0.4 ML DISP.SYRIN SUBCUT ONE (17:00)
--- NOTE | 2016-11-17 17:03 | RADIOLOGY REPORT (SQ) ---
EXAM DESCRIPTION: CTA CHEST COMPLETED DATE/TIME: 11/17/2016 4:21 pm REASON FOR STUDY: evaluate for PE COMPARISON: Chest films 11/17/2016, 06/27/2016 CT chest 12/13/2014 TECHNIQUE: CT scan of the chest performed using helical scanning technique with dynamic intravenous contrast injection. Images reviewed with lung, soft tissue and bone windows. Reconstructed coronal and sagittal MPR images reviewed. Additional 3 dimensional post-processing performed to develop Maximal Intensity Projection images (NM P). All images stored on PACS. All CT scanners at this facility use dose modulation, iterative reconstruction, and/or weight based d osing when appropriate to reduce radiation dose to as low as reasonably achievable (ALARA). [facility]: Dose Right [facility]: CareDose [facility]: Dose Right [facility]: Teradose 4D [facility]: [employer] CONTRAST TYPE AND DOSE: 164 mL Isovue 300- low osmolar. RENAL FUNCTION: Creatinine 1.5 RADIATION DOSE: 129.55 mGy. LIMITATIONS: During the initial injection, the IV became disconnected, with majority of the contrast bolus outside the patient. FINDINGS: LUNGS AND PLEURA: Diffuse alveolar and interstitial infiltrates worrisome for alveolar and interstitial pulmonary edema. Dense pneumonia in the left upper lobe anteriorly could not be exclud ed. There are trace bilateral pleural effusions layering dependently. No gross pulmonary nodules. No pneumothorax. AORTA AND GREAT VESSELS: No aneurysm or dissection. HEART: No pericardial effusion. PULMONARY ARTERIES: No emboli visualized in the main pulmonary arteries or the segmental branches. HILAR AND MEDIASTINAL STRUCTURES: No identified masses or abnormal nodes. HARDWARE: None in the chest. UPPER ABDOMEN: No significant findings. Limited exam. THYROID AND OTHER SOFT TISSUES: No masses. No adenopathy. BONES: No acute or significant finding. 3D MIPS: Confirm above findings. OTHER: No other significant finding. IMPRESSION: Diffuse alveolar and interstitial infiltrates with trace bilateral pleural effusions wor risome for chest or fluid overload. Underlying left upper lobe pneumonia could not entirely be exclu ded. No CT angio evidence of acute pulmonary emboli or thoracic aortic dissection TECHNICAL DOCUMENTATION: JOB ID: [id number] Quality ID # [id number]: Final reports with documentation of one or more dose reduction techniques (e.g., Au tomated exposure control, adjustment of the mA and/or kV according to patient size, use of iterative reconstruction technique) 2010 [employer]- All Rights Reserved
--- NOTE | 2016-11-17 18:07 | PDOC H&P ---
History of Present Illness Admission Date/PCP: 11/17/16 15:22 NIYA TODD DO Patient complains of: Shortness of breath History of Present Illness: JEANNE DELEON is a 46 year old male with a history of diabetes type 2, hypertension, acute kidney injury, recent admission for diabetic foot ulcer/ cellulitis and right fifth digit amputation, and medical noncompliance. He is a poor historian. He tells me he has been short of breath for months but he was just in the hospital here from November 03 - November 10, 2016 and 2 this was not 1 of the issues during that hospitalization. He presents now with difficulty breathing and. He was found to be hypoxic with an O2 saturation of 80% on room air. He also gives a history of falling 3 times last night. He has a contusion of his left periorbital area. In the ED, the chest x-ray shows increased perihilar density bilaterally, left greater than right, with the differential including pulmonary edema and pneumonia. The WBC is 10.3. Hemoglobin is 9.8. BUN 28, creatinine 1.51 for a GFR greater than 60. Troponin is slightly elevated at 0.071. BNP 3740. CTA of the chest shows no evidence of acute pulmonary emboli or thoracic aortic dissection. It does show diffuse alveolar and interstitial infiltrates with trace bilateral pleural effusions worrisome for fluid overload. An underlying left upper lobe pneumonia could not entirely be excluded. A CT of the head negative for acute intracranial abnormality or skull fracture. The patient will be admitted to the ICU for further evaluation and treatment. Past Medical History Cardiac Medical History: Reports: Hypertension, Peripheral Vascular Disease Pulmonary Medical History: Reports: Bronchitis, Pneumonia Endocrine Medical History: Reports: Diabetes Mellitus Type 2 Renal/ Medical History: Reports: Other - h/o ASCENCION Psychiatric Medical History: Reports: Depression Past Surgical History Past Surgical History: Reports: Orthopedic Surgery - Right 5th toe amputation, Other - Removal of "tumor" from the right thigh, removal of multiple boils Social History Lives with: Family Smoking Status: Never Smoker Frequency of Alcohol Use: None Hx Recreational Drug Use: No Hx Prescription Drug Abuse: No Family History Family History: Reviewed & Not Pertinent, CAD, DM, Hypertension Parental Family History Reviewed: No Children Family History Reviewed: No Sibling(s) Family History Reviewed.: No Medication/Allergy Home Medications: Acetaminophen [Tylenol Extra Strength 500 mg Tablet] 1 tab PO DAILYP PRN 05/25/ 17 Amlodipine Besylate [Norvasc 10 mg Tablet] 10 mg PO DAILY 11/17/16 Amox Tr/Potassium Clavulanate [Augmentin 875-125 mg Tablet] 1 tab PO BID Hydrocodone/Acetaminophen [Starlight 5-325 mg Tablet] 1 tab PO Q6HP PRN 11/17/16 Loperamide HCl [Loperamide] 2 mg PO DAILY 11/17/16 Promethazine HCl [Phenergan 25 mg Tablet] 25 mg PO Q4HP PRN 11/17/16 Sitagliptin Phosphate [Januvia 25 mg Tablet] 25 mg PO DAILY 11/17/16 Allergies/Adverse Reactions: No Known Allergies Allergy (Verified 11/03/16 14:55) Review of Systems Constitutional: ABSENT: chills, fever(s), headache(s), weight gain, weight loss Eyes: ABSENT: visual disturbances Ears: ABSENT: hearing changes Cardiovascular: PRESENT: dyspnea on exertion, edema. ABSENT: chest pain, orthropnea, palpitations Respiratory: PRESENT: cough. ABSENT: hemoptysis Gastrointestinal: ABSENT: abdominal pain, constipation, diarrhea, hematemesis, hematochezia, nausea, vomiting Genitourinary: ABSENT: dysuria, hematuria Musculoskeletal: ABSENT: joint swelling Integumentary: PRESENT: wounds. ABSENT: rash Neurological: PRESENT: as per HPI. ABSENT: abnormal gait, abnormal speech, confusion, dizziness, focal weakness Psychiatric: ABSENT: anxiety, depression, homidical ideation, suicidal ideation Endocrine: ABSENT: cold intolerance, heat intolerance, polydipsia, polyuria Hematologic/Lymphatic: ABSENT: easy bleeding, easy bruising Physical Exam Vital Signs: Temp Pulse Resp BP Pulse Ox 99.0 F 122 H 27 H 146/96 H 98 11/17/16 11:59 11/17/16 11:59 11/17/16 15:01 11/17/16 14:34 11/17/16 15:01 General appearance: PRESENT: mild distress, obese Head exam: PRESENT: normocephalic, other - Bruising around the left orbit Eye exam: PRESENT: conjunctival injection, EOMI, periorbital swelling Ear exam: PRESENT: normal external ear exam Neck exam: ABSENT: carotid bruit, JVD, lymphadenopathy, thyromegaly Respiratory exam: PRESENT: crackles, decreased breath sounds, wheezes Cardiovascular exam: PRESENT: RRR. ABSENT: irregular rhythm Pulses: PRESENT: other - dorsalis pedis pulses weak but palpable GI/Abdominal exam: PRESENT: normal bowel sounds, soft. ABSENT: distended, guarding, mass, organolmegaly, rebound, tenderness Rectal exam: PRESENT: deferred Extremities exam: PRESENT: pedal edema, +1 edema. ABSENT: calf tenderness, clubbing Musculoskeletal exam: PRESENT: ambulatory. ABSENT: tenderness Neurological exam: PRESENT: alert, awake, oriented to person, oriented to place , CN II-XII grossly intact Psychiatric exam: PRESENT: flat affect Results Laboratory Results: 11/17/16 15:57 Urine Color YELLOW Urine Appearance SLIGHTLY-CLOUDY Urine pH 5.0 Ur Specific [place] 1.025 Urine Protein >=500 H Urine Glucose (UA) >=500 H Urine Ketones NEGATIVE Urine Blood SMALL H Urine Nitrite NEGATIVE Ur Leukocyte Esterase NEGATIVE Urine WBC (Auto) 3 Urine RBC (Auto) 4 Impressions: Chest X-Ray 11/17/16 12:15 IMPRESSION: Increased parahilar density, left greater than right with differential including pulmonary edema and pneumonia. Foot X-Ray 11/17/16 12:28 IMPRESSION: The uneven edges of the metatarsal amputation are seen. There is no bone destruction to suggest osteomyelitis. Head CT 11/17/16 12:28 IMPRESSION: No acute intracranial abnormality identified. No skull fracture. Chest/Abdomen CTA 11/17/16 13:18 IMPRESSION: Diffuse alveolar and interstitial infiltrates with trace bilateral pleural effusions worrisome for chest or fluid overload. Underlying left upper lobe pneumonia could not entirely be excluded. No CT angio evidence of acute pulmonary emboli or thoracic aortic dissection Assessment & Plan - Diagnosis (1) CHF (congestive heart failure) Qualifiers: Congestive heart failure type: unspecified congestive heart failure type Congestive heart failure chronicity: acute Qualified Code(s): I50.9 - Heart failure, unspecified Is this a current diagnosis for this admission?: YesPlan: This appears to be a new diagnosis. Check echocardiogram. Rx Lasix 40 mg IV twice daily. Will check serial troponins even though the initial troponin elevation may be due to his underlying cardiorenal disease. (2) Hypoxemia Is this a current diagnosis for this admission?: YesPlan: Oxygen supplementation as needed. BiPAP as needed. (3) HTN (hypertension) Qualifiers: Hypertension type: essential hypertension Qualified Code(s): I10 - Essential (primary) hypertension Is this a current diagnosis for this admission?: YesPlan: History of poor medication compliance. Await echocardiogram and target therapy accordingly. (4) DM2 (diabetes mellitus, type 2) Qualifiers: Diabetes mellitus complication status: with ophthalmic complications Laterality: bilateral Is this a current diagnosis for this admission?: YesPlan: History of poor medication compliance. Will check hemoglobin A1c. (5) Status post amputation of lesser toe of right foot Is this a current diagnosis for this admission?: YesPlan: The patient still has an open wound. We will ask wound care to see. - Time Time Spent: Greater than 70 Minutes Critical Time spent with patient: 35 or more minutes Medications reviewed and adjusted accordingly: Yes
--- NOTE | 2016-11-17 18:36 | EKG REPORT ---
SEVERITY:- OTHERWISE NORMAL ECG - SINUS TACHYCARDIA : Confirmed by: Carl Epps MD 17-Nov-2016 18:35:51
[2016-11-17] MEDS: 1/2 NORMAL SALINE 1,000 ML IV PRN (18:42)
[2016-11-17] MEDS ORDERED: GLUCAGON,HUMAN RECOMB 1 MG INJ IM PRN (20:59)
[2016-11-17] MEDS ORDERED: DEXTROSE 40% GEL 15 GM TUBE PO PRN (20:59)
[2016-11-17] MEDS ORDERED: DEXTROSE 50%-WATER SYRINGE 12.5 GM/25 ML DOSE IV PRN (20:59)
[2016-11-17] MEDS ORDERED: DEXTROSE 40% GEL 15 GM TUBE X 2 PO PRN (20:59)
[2016-11-17] MEDS ORDERED: DEXTROSE 50%-WATER SYRINGE 25 GM/50 ML DOSE IV PRN (20:59)
[2016-11-17] MEDS: LEVOFLOXACIN 750 MG/D5W RTU 750 MG/150 ML RTUPB IV SCH (21:22)
[2016-11-17] MEDS: FUROSEMIDE INJ/PF 40 MG/4 ML SDV IV SCH (21:23)
[2016-11-17] MEDS: GUAIFENESIN 600 MG TABLET.SA PO SCH (21:24)
[2016-11-17] MEDS: FAMOTIDINE 20 MG TABLET PO SCH (21:24)
[2016-11-17] MEDS: INSULIN LISPRO 100 UNIT/ML 3 ML VIAL SUBCUT PRN (21:25)
[2016-11-17] MEDS ORDERED: FUROSEMIDE INJ/PF 20 MG/2 ML SDV IV SCH (22:00)
[2016-11-18 05:13] LABS: ABSOLUTE BASOPHILS # (AUTO) 0.1 10^3/uL (0.0-0.2); ABSOLUTE EOSINOPHILS # (AUTO) 0.1 10^3/uL (0.0-0.6); ABSOLUTE LYMPHOCYTES (AUTO) 1.1 10^3/uL (0.5-4.7); ABSOLUTE MONOCYTES (AUTO) 0.8 10^3/uL (0.1-1.4); ABSOLUTE NEUT (AUTO) 7.5 10^3/uL (1.7-8.2); BASOPHILS % (AUTO) 1.1 % (0-2); HEMATOCRIT 29.5 % (37.9-51.0); HEMOGLOBIN 9.7 g/dL (13.5-17.0); HGB HCT DIFFERENCE -0.4; LYMPHOCYTES % (AUTO) 11.3 % (13-45); MEAN CORPUSCULAR HEMOGLOBIN 28.3 pg (27.0-33.4); MEAN CORPUSCULAR VOLUME 86 fl (80-97); RED BLOOD COUNT 3.44 10^6/uL (4.35-5.55); RED CELL DISTRIBUTION WIDTH 14.3 % (11.5-14.0); SEGMENTED NEUTROPHILS % (AUTO) 78.6 % (42-78); WHITE BLOOD COUNT 9.6 10^3/uL (4.0-10.5)
[2016-11-18 05:46] LABS: ANION GAP 11 (5-19); BLOOD UREA NITROGEN 24 mg/dL (7-20); CARBON DIOXIDE 27 mmol/L (22-30); CHLORIDE 106 mmol/L (98-107); CREATININE RESULT 1.44 mg/dL (0.52-1.25); GLUCOSE 220 mg/dL (75-110); SODIUM 143.9 mmol/L (137-145)
[2016-11-18] MEDS: ENOXAPARIN SODIUM INJ 40 MG/0.4 ML DISP.SYRIN SUBCUT SCH (09:01)
[2016-11-18] MEDS: INSULIN LISPRO 100 UNIT/ML 3 ML VIAL SUBCUT PRN ×2 (09:01→12:14)
[2016-11-18] MEDS: CEFTRIAXONE 1 GM/D5W RTU 50 ML IV SCH (09:01)
[2016-11-18] MEDS: FUROSEMIDE INJ/PF 40 MG/4 ML SDV IV SCH ×2 (09:02→22:02)
[2016-11-18] MEDS: FAMOTIDINE 20 MG TABLET PO SCH ×2 (09:02→22:01)
[2016-11-18] MEDS: SITAGLIPTIN PHOSPHATE 25 MG TABLET PO SCH (09:02)
[2016-11-18] MEDS: GUAIFENESIN 600 MG TABLET.SA PO SCH ×2 (09:02→22:02)
[2016-11-18] MEDS ORDERED: LEVOFLOXACIN 750 MG/D5W RTU 150 ML IV SCH (10:00)
--- NOTE | 2016-11-18 13:39 | PDOC PROGRESS REPORT ---
Subjective Progress Note for:: 11/18/16 Subjective:: JEANNE DELEON is a 46 year old male with a history of diabetes type 2, hypertension, acute kidney injury, recent admission for diabetic foot ulcer/ cellulitis and right fifth digit amputation, and medical noncompliance. He is a poor historian. He tells me he has been short of breath for months but he was just in the hospital here from November 03 - November 10, 2016 and 2 this was not 1 of the issues during that hospitalization. He presents now with difficulty breathing and. He was found to be hypoxic with an O2 saturation of 80% on room air. He also gives a history of falling 3 times last night. He has a contusion of his left periorbital area. In the ED, the chest x-ray shows increased perihilar density bilaterally, left greater than right, with the differential including pulmonary edema and pneumonia. The WBC is 10.3. Hemoglobin is 9.8. BUN 28, creatinine 1.51 for a GFR greater than 60. Troponin is slightly elevated at 0.071. BNP 3740. CTA of the chest shows no evidence of acute pulmonary emboli or thoracic aortic dissection. It does show diffuse alveolar and interstitial infiltrates with trace bilateral pleural effusions worrisome for fluid overload. An underlying left upper lobe pneumonia could not entirely be excluded. A CT of the head negative for acute intracranial abnormality or skull fracture. The patient will be admitted to the ICU for further evaluation and treatment of apparently new onset CHF. Physical Exam Vital Signs: Temp Pulse Resp BP Pulse Ox 97.7 F 116 H 19 129/92 H 97 11/18/16 12:00 11/18/16 12:00 11/18/16 12:04 11/18/16 12:04 11/18/16 12:04 Intake & Output 11/17/16 11/18/16 11/19/16 06:59 06:59 06:59 Intake Total 674 240 Output Total 1300 1000 Balance -626 -760 Weight 109.7 kg Additional comments: General appearance: PRESENT: mild distress, obese, still on BiPAP Head exam: PRESENT: normocephalic, other - Bruising around the left orbit Eye exam: PRESENT: conjunctival injection, EOMI, periorbital swelling Ear exam: PRESENT: normal external ear exam Neck exam: ABSENT: carotid bruit, JVD, lymphadenopathy, thyromegaly Respiratory exam: PRESENT: crackles, decreased breath sounds but slightly better air movement, wheezes Cardiovascular exam: PRESENT: RRR. ABSENT: irregular rhythm Pulses: PRESENT: other - dorsalis pedis pulses weak but palpable GI/Abdominal exam: PRESENT: normal bowel sounds, soft. ABSENT: distended, guarding, mass, organolmegaly, rebound, tenderness Rectal exam: PRESENT: deferred Extremities exam: PRESENT: pedal edema, +1 edema. ABSENT: calf tenderness, clubbing Musculoskeletal exam: PRESENT: ambulatory. ABSENT: tenderness Neurological exam: PRESENT: alert, awake, oriented to person, oriented to place , CN II-XII grossly intact Psychiatric exam: PRESENT: flat affect Results Laboratory Results: 11/18/16 05:04 11/18/16 05:04 11/17/16 11/18/16 11/18/16 15:57 05:04 05:04 WBC 9.6 RBC 3.44 L Hgb 9.7 L Hct 29.5 L MCV 86 MCH 28.3 MCHC 33.0 RDW 14.3 H Plt Count 339 Seg Neutrophils % 78.6 H Lymphocytes % 11.3 L Monocytes % 8.0 Eosinophils % 1.0 Basophils % 1.1 Absolute Neutrophils 7.5 Absolute Lymphocytes 1.1 Absolute Monocytes 0.8 Absolute Eosinophils 0.1 Absolute Basophils 0.1 Sodium 143.9 Potassium 4.0 Chloride 106 Carbon Dioxide 27 Anion Gap 11 BUN 24 H Creatinine 1.44 H Est GFR ( Amer) > 60 Est GFR (Non-Af Amer) 53 L Glucose 220 H Calcium 9.0 Urine Color YELLOW Urine Appearance SLIGHTLY-CLOUDY Urine pH 5.0 Ur Specific [place] 1.025 Urine Protein >=500 H Urine Glucose (UA) >=500 H Urine Ketones NEGATIVE Urine Blood SMALL H Urine Nitrite NEGATIVE Ur Leukocyte Esterase NEGATIVE Urine WBC (Auto) 3 Urine RBC (Auto) 4 Impressions: Chest X-Ray 11/17/16 12:15 IMPRESSION: Increased parahilar density, left greater than right with differential including pulmonary edema and pneumonia. Foot X-Ray 11/17/16 12:28 IMPRESSION: The uneven edges of the metatarsal amputation are seen. There is no bone destruction to suggest osteomyelitis. Head CT 11/17/16 12:28 IMPRESSION: No acute intracranial abnormality identified. No skull fracture. Chest/Abdomen CTA 11/17/16 13:18 IMPRESSION: Diffuse alveolar and interstitial infiltrates with trace bilateral pleural effusions worrisome for chest or fluid overload. Underlying left upper lobe pneumonia could not entirely be excluded. No CT angio evidence of acute pulmonary emboli or thoracic aortic dissection Assessment & Plan - Diagnosis (1) CHF (congestive heart failure) Qualifiers: Congestive heart failure type: unspecified congestive heart failure type Congestive heart failure chronicity: acute Qualified Code(s): I50.9 - Heart failure, unspecified Is this a current diagnosis for this admission?: YesPlan: This appears to be a new diagnosis. Echocardiogram pending. Rx Lasix 40 mg IV twice daily. Will check serial troponins even though the initial troponin elevation may be due to his underlying cardiorenal disease. (2) Hypoxemia Is this a current diagnosis for this admission?: YesPlan: Oxygen supplementation as needed. BiPAP as needed. (3) HTN (hypertension) Qualifiers: Hypertension type: essential hypertension Qualified Code(s): I10 - Essential (primary) hypertension Is this a current diagnosis for this admission?: YesPlan: History of poor medication compliance. Await echocardiogram and target therapy accordingly. (4) DM2 (diabetes mellitus, type 2) Qualifiers: Diabetes mellitus complication status: with ophthalmic complications Laterality: bilateral Is this a current diagnosis for this admission?: YesPlan: History of poor medication compliance. Hemoglobin A1c is 11.4. (5) Status post amputation of lesser toe of right foot Is this a current diagnosis for this admission?: YesPlan: The patient still has an open wound. We will ask wound care to see.
--- NOTE | 2016-11-18 14:14 | XCELERA REPORT ---
[address] [address] Transthoracic Echocardiogram Report Name: JEANNE DELEON Age: 46 yrs Gender: Male : 1970 Patient Status: Inpatient Patient Location: ICU\S\611\S\A Study Date: 11/18/2016 09:35 AM Height: 69 in Weight: 236 lb BSA: 2.2 m2 Procedure: A complete two-dimensional transthoracic echocardiogram was performed (2D, M-mode, spectral and color flow Doppler). The study was technically difficult with many images being suboptimal in quality. Reason For Study: chf Ordering Physician: JEZ ACEVEDO Performed By: Karissa Meraz Interpretation Summary The Ejection Fraction estimate is 45-50% Left ventricular systolic function is mildly reduced. There is borderline concentric left ventricular hypertrophy. The left ventricle is grossly normal size. Doppler measurements suggest pseudonormalized left ventricular relaxation, which is associated with grade II/IV or mild to moderate diastolic dysfunction Wall motion cannot be accurately commented on, but no definite regional wall motion abnormalities noted. The right ventricular systolic function is normal. Borderline right ventricular enlargement. The left atrium is mildly dilated. Borderline right atrial enlargement. There is a mild to moderate amount of mitral regurgitation There is no mitral valve stenosis. There is a trace to mild amount of aortic regurgitation There is no aortic valve stenosis There is a trace to mild amount of tricuspid regurgitation Right ventricular systolic pressure is estimated to be elevated at 30- 40mmHg. There is mild pulmonary hypertension by echo There is no pericardial effusion. MMode/2D Measurements \T\ Calculations RVDd: 3.0 cm LVIDd: 5.2 cm FS: 25.1 % Ao root diam: 2.6 cm IVSd: 1.0 cm LVIDs: 3.9 cm EDV(Teich): 129.1 ml LVPWd: 1.00 cm ESV(Teich): 65.5 ml Ao root area: 5.4 cm2 EF(Teich): 49.2 % LA dimension: 4.1 cm Doppler Measurements \T\ Calculations MV E max vinny: MV P1/2t max vinny: Ao V2 max: LV V1 max P.0 cm/sec 80.0 cm/sec 111.8 cm/sec 3.4 mmHg MV A max vinny: MV P1/2t: 26.3 msec Ao max PG: LV V1 max: 91.8 cm/sec 5.0 mmHg 92.3 cm/sec MV E/A: 0.87 MVA(P1/2t): 8.4 cm2 MV dec slope: 891.6 cm/sec2 MV dec time: 0.09 sec PA V2 max: PI end-d vinny: TR max vinny: 89.8 cm/sec 175.1 cm/sec 297.1 cm/sec PA max PG: TR max P.2 mmHg 35.3 mmHg Left Ventricle The left ventricle is grossly normal size. There is borderline concentric left ventricular hypertrophy. Left ventricular systolic function is mildly reduced. The Ejection Fraction estimate is 45-50%. Doppler measurements suggest pseudonormalized left ventricular relaxation, which is associated with grade II/IV or mild to moderate diastolic dysfunction. Wall motion cannot be accurately commented on, but no definite regional wall motion abnormalities noted. Right Ventricle Borderline right ventricular enlargement. There is normal right ventricular wall thickness. The right ventricular systolic function is normal. Atria Borderline right atrial enlargement. The left atrium is mildly dilated. Interarterial septum not well visualized and not well dopplered. Cannot comment on ASD/PFO presence. Mitral Valve The mitral valve is grossly normal. There is no mitral valve stenosis. There is a mild to moderate amount of mitral regurgitation. Aortic Valve The aortic valve is grossly normal. There is no aortic valve stenosis. There is a trace to mild amount of aortic regurgitation. Tricuspid Valve The tricuspid valve is not well visualized, but is grossly normal. There is no tricuspid stenosis. There is a trace to mild amount of tricuspid regurgitation. Right ventricular systolic pressure is estimated to be elevated at 30-40mmHg. There is mild pulmonary hypertension by echo. Pulmonic Valve The pulmonic valve is not well visualized. Great Vessels The aortic root is not well visualized but is probably normal size. The inferior vena cava appeared normal and decreased > 50% with respiration (RAP 5-10 mmHg). Effusions There is no pericardial effusion. : JEZ ACEVEDO > Micheal [place]
[2016-11-18] MEDS: LEVOFLOXACIN 750 MG/D5W RTU 750 MG/150 ML RTUPB IV SCH (22:02)
[2016-11-19 04:54] LABS: ANION GAP 8 (5-19); BLOOD UREA NITROGEN 23 mg/dL (7-20); CALCIUM 8.9 mg/dL (8.4-10.2); CARBON DIOXIDE 29 mmol/L (22-30); CHLORIDE 104 mmol/L (98-107); CREATININE RESULT 1.38 mg/dL (0.52-1.25); GLUCOSE 140 mg/dL (75-110); POTASSIUM 3.7 mmol/L (3.6-5.0); SODIUM 141.4 mmol/L (137-145)
[2016-11-19 05:06] LABS: TROPONIN I 0.026 ng/mL
[2016-11-19] MEDS: ENOXAPARIN SODIUM INJ 40 MG/0.4 ML DISP.SYRIN SUBCUT SCH (08:36)
[2016-11-19] MEDS: FUROSEMIDE INJ/PF 40 MG/4 ML SDV IV SCH ×2 (10:57→22:56)
[2016-11-19] MEDS: CEFTRIAXONE 1 GM/D5W RTU 50 ML IV SCH (10:58)
[2016-11-19] MEDS: GUAIFENESIN 600 MG TABLET.SA PO SCH (10:58)
[2016-11-19] MEDS: FAMOTIDINE 20 MG TABLET PO SCH ×2 (10:58→22:57)
[2016-11-19] MEDS: SITAGLIPTIN PHOSPHATE 25 MG TABLET PO SCH (10:59)
[2016-11-19] MEDS: HYDROCODONE/ACETAMINOPHEN 5-325 MG TABLET PO PRN (11:12)
--- NOTE | 2016-11-19 11:24 | PDOC PROGRESS REPORT ---
Subjective Progress Note for:: 11/19/16 Subjective:: JEANNE DELEON is a 46 year old male with a history of diabetes type 2, hypertension, acute kidney injury, recent admission for diabetic foot ulcer/ cellulitis and right fifth digit amputation, and medical noncompliance. He is a poor historian. He tells me he has been short of breath for months but he was just in the hospital here from November 03 - November 10, 2016 and 2 this was not 1 of the issues during that hospitalization. He presents now with difficulty breathing and. He was found to be hypoxic with an O2 saturation of 80% on room air. He also gives a history of falling 3 times last night. He has a contusion of his left periorbital area. In the ED, the chest x-ray shows increased perihilar density bilaterally, left greater than right, with the differential including pulmonary edema and pneumonia. The WBC is 10.3. Hemoglobin is 9.8. BUN 28, creatinine 1.51 for a GFR greater than 60. Troponin is slightly elevated at 0.071. BNP 3740. CTA of the chest shows no evidence of acute pulmonary emboli or thoracic aortic dissection. It does show diffuse alveolar and interstitial infiltrates with trace bilateral pleural effusions worrisome for fluid overload. An underlying left upper lobe pneumonia could not entirely be excluded. A CT of the head negative for acute intracranial abnormality or skull fracture. The patient will be admitted to the ICU for further evaluation and treatment of apparently new onset CHF. Physical Exam Vital Signs: Temp Pulse Resp BP Pulse Ox 98.5 F 102 H 17 140/89 H 98 11/19/16 08:00 11/19/16 08:00 11/19/16 10:04 11/19/16 10:04 11/19/16 10:04 Intake & Output 11/18/16 11/19/16 11/20/16 06:59 06:59 06:59 Intake Total 674 1094 Output Total 1300 2000 Balance -626 901 Weight 109.7 kg 110.4 kg Additional comments: General appearance: PRESENT: no acute distress, obese, off BiPAP, on nasal cannula Head exam: PRESENT: normocephalic, other - Bruising around the left orbit Eye exam: PRESENT: conjunctival injection, EOMI, periorbital swelling Ear exam: PRESENT: normal external ear exam Neck exam: ABSENT: carotid bruit, JVD, lymphadenopathy, thyromegaly Respiratory exam: PRESENT: coarse breath sounds, improving air movement, no wheezes Cardiovascular exam: PRESENT: RRR. ABSENT: irregular rhythm Pulses: PRESENT: other - dorsalis pedis pulses weak but palpable GI/Abdominal exam: PRESENT: normal bowel sounds, soft. ABSENT: distended, guarding, mass, organolmegaly, rebound, tenderness Rectal exam: PRESENT: deferred Extremities exam: PRESENT: trace edema. ABSENT: calf tenderness, clubbing Musculoskeletal exam: PRESENT: ambulatory. ABSENT: tenderness Neurological exam: PRESENT: alert, awake, oriented to person, oriented to place , CN II-XII grossly intact Psychiatric exam: PRESENT: appropriate affect Results Laboratory Results: 11/18/16 05:04 11/19/16 04:30 11/19/16 04:30 Sodium 141.4 Potassium 3.7 Chloride 104 Carbon Dioxide 29 Anion Gap 8 BUN 23 H Creatinine 1.38 H Est GFR ( Amer) > 60 Est GFR (Non-Af Amer) 56 L Glucose 140 H Calcium 8.9 11/17/16 20:38 Nasophary (Mrsa Only) MRSA Surveillance Culture - Final NO MRSA RECOVERED 11/19/16 04:30 Troponin I 0.026 NT-Pro-B Natriuret Pep 2860 H Impressions: Chest X-Ray 11/17/16 12:15 IMPRESSION: Increased parahilar density, left greater than right with differential including pulmonary edema and pneumonia. Foot X-Ray 11/17/16 12:28 IMPRESSION: The uneven edges of the metatarsal amputation are seen. There is no bone destruction to suggest osteomyelitis. Head CT 11/17/16 12:28 IMPRESSION: No acute intracranial abnormality identified. No skull fracture. Chest/Abdomen CTA 11/17/16 13:18 IMPRESSION: Diffuse alveolar and interstitial infiltrates with trace bilateral pleural effusions worrisome for chest or fluid overload. Underlying left upper lobe pneumonia could not entirely be excluded. No CT angio evidence of acute pulmonary emboli or thoracic aortic dissection Assessment & Plan - Diagnosis (1) CHF (congestive heart failure) Qualifiers: Congestive heart failure type: diastolic Congestive heart failure chronicity: acute Qualified Code(s): I50.31 - Acute diastolic (congestive ) heart failure Is this a current diagnosis for this admission?: YesPlan: This appears to be a new diagnosis. Echocardiogram shows low-normal EF 45-50% but LVH with moderate diastolic dysfunction. Continue Lasix 40 mg IV twice daily. Add beta reji. Transfer to [facility]. (2) Hypoxemia Is this a current diagnosis for this admission?: YesPlan: Oxygen supplementation as needed. Improving. Off BiPAP now, will use as needed. (3) HTN (hypertension) Qualifiers: Hypertension type: essential hypertension Qualified Code(s): I10 - Essential (primary) hypertension Is this a current diagnosis for this admission?: YesPlan: History of poor medication compliance. As above, echocardiogram noted and Coreg started. (4) DM2 (diabetes mellitus, type 2) Qualifiers: Diabetes mellitus complication status: with ophthalmic complications Laterality: bilateral Is this a current diagnosis for this admission?: YesPlan: History of poor medication compliance. Hemoglobin A1c is 11.4. Continue current hospital Rx. (5) Status post amputation of lesser toe of right foot Is this a current diagnosis for this admission?: YesPlan: Continue wound care.
[2016-11-19] MEDS: 1/2 NORMAL SALINE 1,000 ML IV PRN (17:21)
[2016-11-19] MEDS: CARVEDILOL 3.125 MG TABLET PO SCH (22:57)
[2016-11-20 05:55] LABS: ABSOLUTE BASOPHILS # (AUTO) 0.1 10^3/uL (0.0-0.2); ABSOLUTE EOSINOPHILS # (AUTO) 0.2 10^3/uL (0.0-0.6); ABSOLUTE LYMPHOCYTES (AUTO) 1.4 10^3/uL (0.5-4.7); ABSOLUTE MONOCYTES (AUTO) 0.6 10^3/uL (0.1-1.4); ABSOLUTE NEUT (AUTO) 4.6 10^3/uL (1.7-8.2); BASOPHILS % (AUTO) 0.9 % (0-2); EOSINOPHILS % (AUTO) 2.6 % (0-6); HEMATOCRIT 29.3 % (37.9-51.0); HEMOGLOBIN 9.9 g/dL (13.5-17.0); HGB HCT DIFFERENCE 0.4; LYMPHOCYTES % (AUTO) 20.1 % (13-45); MEAN CORPUSCULAR HEMOGLOBIN 29.1 pg (27.0-33.4); MEAN CORPUSCULAR HGB CONC 33.6 g/dL (32.0-36.0); MEAN CORPUSCULAR VOLUME 87 fl (80-97); MONOCYTES % (AUTO) 8.8 % (3-13); RED BLOOD COUNT 3.38 10^6/uL (4.35-5.55); RED CELL DISTRIBUTION WIDTH 13.8 % (11.5-14.0); SEGMENTED NEUTROPHILS % (AUTO) 67.6 % (42-78); WHITE BLOOD COUNT 6.9 10^3/uL (4.0-10.5)
[2016-11-20 06:11] LABS: ANION GAP 7 (5-19); BLOOD UREA NITROGEN 21 mg/dL (7-20); CALCIUM 8.9 mg/dL (8.4-10.2); CARBON DIOXIDE 31 mmol/L (22-30); CHLORIDE 102 mmol/L (98-107); CREATININE RESULT 1.49 mg/dL (0.52-1.25); GLUCOSE 148 mg/dL (75-110); POTASSIUM 3.7 mmol/L (3.6-5.0); SODIUM 139.9 mmol/L (137-145)
[2016-11-20] MEDS: INSULIN LISPRO 100 UNIT/ML 3 ML VIAL SUBCUT PRN ×4 (08:00→23:10)
[2016-11-20] MEDS: ENOXAPARIN SODIUM INJ 40 MG/0.4 ML DISP.SYRIN SUBCUT SCH (08:00)
[2016-11-20] MEDS: SITAGLIPTIN PHOSPHATE 25 MG TABLET PO SCH (09:53)
[2016-11-20] MEDS: CARVEDILOL 3.125 MG TABLET PO SCH (09:53)
[2016-11-20] MEDS: FAMOTIDINE 20 MG TABLET PO SCH ×2 (09:53→22:53)
[2016-11-20] MEDS: FUROSEMIDE INJ/PF 40 MG/4 ML SDV IV SCH (09:53)
--- NOTE | 2016-11-20 11:00 | PDOC PROGRESS REPORT ---
Subjective Subjective:: JEANNE DELEON is a 46 year old male with a history of diabetes type 2, hypertension, acute kidney injury, recent admission for diabetic foot ulcer/ cellulitis and right fifth digit amputation, and medical noncompliance. He is a poor historian. He tells me he has been short of breath for months but he was just in the hospital here from November 03 - November 10, 2016 and 2 this was not 1 of the issues during that hospitalization. He presents now with difficulty breathing and. He was found to be hypoxic with an O2 saturation of 80% on room air. He also gives a history of falling 3 times last night. He has a contusion of his left periorbital area. In the ED, the chest x-ray shows increased perihilar density bilaterally, left greater than right, with the differential including pulmonary edema and pneumonia. The WBC is 10.3. Hemoglobin is 9.8. BUN 28, creatinine 1.51 for a GFR greater than 60. Troponin is slightly elevated at 0.071. BNP 3740. CTA of the chest shows no evidence of acute pulmonary emboli or thoracic aortic dissection. It does show diffuse alveolar and interstitial infiltrates with trace bilateral pleural effusions worrisome for fluid overload. An underlying left upper lobe pneumonia could not entirely be excluded. A CT of the head negative for acute intracranial abnormality or skull fracture. The patient will be admitted to the ICU for further evaluation and treatment of apparently new onset CHF. The 11/18/2016 echocardiogram shows evidence of LVH and diastolic dysfunction. The patient is improving on Lasix and beta-reji. Today he is breathing easily on low flow nasal cannula. Is eating and drinking. He ambulates short distances without difficulty. As a separate concern, he has a recent right toe amputation debridement of the lateral distal aspect of the foot. He has an open wound. Will request surgical follow-up. Physical Exam Vital Signs: Temp Pulse Resp BP Pulse Ox 100.0 F 115 H 18 137/91 H 92 11/20/16 08:05 11/20/16 08:05 11/20/16 08:05 11/20/16 08:05 11/20/16 10:10 Intake & Output 11/19/16 11/20/16 11/21/16 06:59 06:59 06:59 Intake Total 1094 244 Output Total 1999 1939 Balance -980 -3882 Weight 110.4 kg 105.5 kg Additional comments: General appearance: PRESENT: no acute distress, obese, off BiPAP, on nasal cannula Head exam: PRESENT: normocephalic, other - Bruising around the left orbit Eye exam: PRESENT: conjunctival injection, EOMI, periorbital swelling Ear exam: PRESENT: normal external ear exam Neck exam: ABSENT: carotid bruit, JVD, lymphadenopathy, thyromegaly Respiratory exam: PRESENT: coarse breath sounds, improving air movement, no wheezes Cardiovascular exam: PRESENT: RRR. ABSENT: irregular rhythm Pulses: PRESENT: other - dorsalis pedis pulses weak but palpable GI/Abdominal exam: PRESENT: normal bowel sounds, soft. ABSENT: distended, guarding, mass, organolmegaly, rebound, tenderness Rectal exam: PRESENT: deferred Extremities exam: PRESENT: trace edema. ABSENT: calf tenderness, clubbing Musculoskeletal exam: PRESENT: ambulatory. ABSENT: tenderness Neurological exam: PRESENT: alert, awake, oriented to person, oriented to place , CN II-XII grossly intact Psychiatric exam: PRESENT: appropriate affect Skin: open wound right lateral distal foot Results Laboratory Results: 11/20/16 05:21 11/20/16 05:21 11/20/16 11/20/16 05:21 05:21 WBC 6.9 RBC 3.38 L Hgb 9.9 L Hct 29.3 L MCV 87 MCH 29.1 MCHC 33.6 RDW 13.8 Plt Count 360 Seg Neutrophils % 67.6 Lymphocytes % 20.1 Monocytes % 8.8 Eosinophils % 2.6 Basophils % 0.9 Absolute Neutrophils 4.6 Absolute Lymphocytes 1.4 Absolute Monocytes 0.6 Absolute Eosinophils 0.2 Absolute Basophils 0.1 Sodium 139.9 Potassium 3.7 Chloride 102 Carbon Dioxide 31 H Anion Gap 7 BUN 21 H Creatinine 1.49 H Est GFR ( Amer) > 60 Est GFR (Non-Af Amer) 51 L Glucose 148 H Calcium 8.9 11/17/16 15:57 Clean Catch Midstream Urine Culture - Final NO GROWTH 2 DAYS 11/17/16 20:38 Nasophary (Mrsa Only) MRSA Surveillance Culture - Final NO MRSA RECOVERED 11/19/16 04:30 Troponin I 0.026 NT-Pro-B Natriuret Pep 2860 H Impressions: Chest X-Ray 11/17/16 12:15 IMPRESSION: Increased parahilar density, left greater than right with differential including pulmonary edema and pneumonia. Foot X-Ray 11/17/16 12:28 IMPRESSION: The uneven edges of the metatarsal amputation are seen. There is no bone destruction to suggest osteomyelitis. Head CT 11/17/16 12:28 IMPRESSION: No acute intracranial abnormality identified. No skull fracture. Chest/Abdomen CTA 11/17/16 13:18 IMPRESSION: Diffuse alveolar and interstitial infiltrates with trace bilateral pleural effusions worrisome for chest or fluid overload. Underlying left upper lobe pneumonia could not entirely be excluded. No CT angio evidence of acute pulmonary emboli or thoracic aortic dissection Assessment & Plan - Diagnosis (1) CHF (congestive heart failure) Qualifiers: Congestive heart failure type: diastolic Congestive heart failure chronicity: acute Qualified Code(s): I50.31 - Acute diastolic (congestive ) heart failure Is this a current diagnosis for this admission?: YesPlan: This appears to be a new diagnosis. Echocardiogram shows low-normal EF 45-50% but LVH with moderate diastolic dysfunction. Change IV to PO Lasix. Increase Coreg. Discharge 24-48 hrs. (2) Hypoxemia Is this a current diagnosis for this admission?: YesPlan: Oxygen supplementation as needed. Improving. On low-flow nasal O2. (3) HTN (hypertension) Qualifiers: Hypertension type: essential hypertension Qualified Code(s): I10 - Essential (primary) hypertension Is this a current diagnosis for this admission?: YesPlan: History of poor medication compliance. As above, echocardiogram noted and Coreg started. (4) DM2 (diabetes mellitus, type 2) Qualifiers: Diabetes mellitus complication status: with ophthalmic complications Laterality: bilateral Is this a current diagnosis for this admission?: YesPlan: History of poor medication compliance. Hemoglobin A1c is 11.4. Continue current hospital Rx. (5) Status post amputation of lesser toe of right foot Is this a current diagnosis for this admission?: YesPlan: Surgical follow-up requested.
--- NOTE | 2016-11-20 12:51 | PDOC CONSULTATION ---
Consultation Consult Date: 11/20/16 Attending physician:: EJZ ACEVEDO Consult reason:: Foot wound History of Present Illness Admission Date/PCP: 11/17/16 15:22 NIYA TODD DO History of Present Illness: The patient is a 46-year-old gentleman, status post right fifth toe amputation, [facility], status post outpatient management with p.o. antibiotics, Augmentin, and wound VAC. Interval medical and surgical history on record. Patient has been receiving wet-to-dry dressing changes. Past Medical History Cardiac Medical History: Reports: Hypertension, Peripheral Vascular Disease Pulmonary Medical History: Reports: Bronchitis, Pneumonia Endocrine Medical History: Reports: Diabetes Mellitus Type 2 Renal/ Medical History: Reports: Other - h/o [facility] Psychiatric Medical History: Reports: Depression Past Surgical History Past Surgical History: Reports: Orthopedic Surgery - Right 5th toe amputation, Other - Removal of "tumor" from the right thigh, removal of multiple boils Social History Lives with: Family Smoking Status: Never Smoker Frequency of Alcohol Use: None Hx Recreational Drug Use: No Hx Prescription Drug Abuse: No Family History Family History: Reviewed & Not Pertinent, CAD, DM, Hypertension Parental Family History Reviewed: Yes Children Family History Reviewed: Yes Sibling(s) Family History Reviewed.: Yes Medication/Allergy Home Medications: Acetaminophen [Tylenol Extra Strength 500 mg Tablet] 1 tab PO DAILYP PRN Amlodipine Besylate [Norvasc 10 mg Tablet] 10 mg PO DAILY 11/17/16 Amox Tr/Potassium Clavulanate [Augmentin 875-125 mg Tablet] 1 tab PO BID Hydrocodone/Acetaminophen [[place] 5-325 mg Tablet] 1 tab PO Q6HP PRN 11/17/16 Loperamide HCl [Loperamide] 2 mg PO DAILY 11/17/16 Promethazine HCl [Phenergan 25 mg Tablet] 25 mg PO Q4HP PRN 11/17/16 Sitagliptin Phosphate [Januvia 25 mg Tablet] 25 mg PO DAILY 11/17/16 Allergies/Adverse Reactions: No Known Allergies Allergy (Verified 11/03/16 14:55) Physical Exam Vital Signs: Temp Pulse Resp BP Pulse Ox 100.0 F 115 H 18 137/91 H 92 11/20/16 08:05 11/20/16 08:05 11/20/16 08:05 11/20/16 08:05 11/20/16 10:10 Intake & Output 11/19/16 11/20/16 11/21/16 06:59 06:59 06:59 Intake Total 1094 244 Output Total 1999 1939 Balance -840 -0892 Weight 110.4 kg 105.5 kg General appearance: PRESENT: no acute distress Extremities exam: PRESENT: other - The [place] right foot is examined. The foot is warm, with palpable dorsalis pedis pulse. Dressing removed. Right fifth toe amputation site is granulating with some fibrinous debris which was roughened up with a 4 x 4. No foul smell or drainage. All of the toes in healthy condition. There is some exfoliating skin on the dorsum of the foot. Results Laboratory Results: 11/20/16 05:21 11/20/16 05:21 11/20/16 11/20/16 05:21 05:21 WBC 6.9 RBC 3.38 L Hgb 9.9 L Hct 29.3 L MCV 87 MCH 29.1 MCHC 33.6 RDW 13.8 Plt Count 360 Seg Neutrophils % 67.6 Lymphocytes % 20.1 Monocytes % 8.8 Eosinophils % 2.6 Basophils % 0.9 Absolute Neutrophils 4.6 Absolute Lymphocytes 1.4 Absolute Monocytes 0.6 Absolute Eosinophils 0.2 Absolute Basophils 0.1 Sodium 139.9 Potassium 3.7 Chloride 102 Carbon Dioxide 31 H Anion Gap 7 BUN 21 H Creatinine 1.49 H Est GFR ( Amer) > 60 Est GFR (Non-Af Amer) 51 L Glucose 148 H Calcium 8.9 11/17/16 15:57 Clean Catch Midstream Urine Culture - Final NO GROWTH 2 DAYS 11/19/16 04:30 Troponin I 0.026 NT-Pro-B Natriuret Pep 2860 H Impressions: Chest X-Ray 11/17/16 12:15 IMPRESSION: Increased parahilar density, left greater than right with differential including pulmonary edema and pneumonia. Foot X-Ray 11/17/16 12:28 IMPRESSION: The uneven edges of the metatarsal amputation are seen. There is no bone destruction to suggest osteomyelitis. Head CT 11/17/16 12:28 IMPRESSION: No acute intracranial abnormality identified. No skull fracture. Chest/Abdomen CTA 11/17/16 13:18 IMPRESSION: Diffuse alveolar and interstitial infiltrates with trace bilateral pleural effusions worrisome for chest or fluid overload. Underlying left upper lobe pneumonia could not entirely be excluded. No CT angio evidence of acute pulmonary emboli or thoracic aortic dissection Assessment & Plan - Diagnosis (1) Status post amputation Is this a current diagnosis for this admission?: YesPlan: Fifth toe amputation, with chronic wound, healing by secondary intention with VAC therapy on an outpatient basis. Recommendations 3. wound VAC therapy upon discharge from [facility] and to follow up with advanced wound center. 1. We will start local dressings, and orders with nursing staff and ordered in the chart for Xeroform after soapy water washes, 4 x 4 and Kerlix wrap. 2. To be wearing a surgical sandal and that has been ordered for pressure offloading. 4. Reconsult surgery if needed.
[2016-11-20] MEDS: AMOXICILLIN TR/POT CLAVULANATE 500-125 MG TAB PO SCH ×2 (14:04→22:52)
[2016-11-20] MEDS ORDERED: (PENDING PHARMACY ID) (Amox Tr/Potassium Clavulanate [Augmentin 875-125 Mg Tablet] 1 TAB) PO SCH (18:00)
[2016-11-20] MEDS ORDERED: CARVEDILOL 3.125 MG TABLET PO SCH (22:00)
[2016-11-21 05:52] LABS: ABSOLUTE BASOPHILS # (AUTO) 0.1 10^3/uL (0.0-0.2); ABSOLUTE EOSINOPHILS # (AUTO) 0.2 10^3/uL (0.0-0.6); ABSOLUTE LYMPHOCYTES (AUTO) 1.6 10^3/uL (0.5-4.7); ABSOLUTE MONOCYTES (AUTO) 0.6 10^3/uL (0.1-1.4); ABSOLUTE NEUT (AUTO) 3.5 10^3/uL (1.7-8.2); BASOPHILS % (AUTO) 1.1 % (0-2); EOSINOPHILS % (AUTO) 3.3 % (0-6); HEMATOCRIT 29.8 % (37.9-51.0); HEMOGLOBIN 9.7 g/dL (13.5-17.0); HGB HCT DIFFERENCE -0.7; LYMPHOCYTES % (AUTO) 26.3 % (13-45); MEAN CORPUSCULAR HGB CONC 32.5 g/dL (32.0-36.0); MEAN CORPUSCULAR VOLUME 86 fl (80-97); MONOCYTES % (AUTO) 9.7 % (3-13); RED BLOOD COUNT 3.47 10^6/uL (4.35-5.55); RED CELL DISTRIBUTION WIDTH 14.2 % (11.5-14.0); SEGMENTED NEUTROPHILS % (AUTO) 59.6 % (42-78); WHITE BLOOD COUNT 5.9 10^3/uL (4.0-10.5)
[2016-11-21 06:04] LABS: ANION GAP 9 (5-19); BLOOD UREA NITROGEN 19 mg/dL (7-20); CALCIUM 8.9 mg/dL (8.4-10.2); CARBON DIOXIDE 29 mmol/L (22-30); CHLORIDE 100 mmol/L (98-107); CREATININE RESULT 1.35 mg/dL (0.52-1.25); GLUCOSE 163 mg/dL (75-110); POTASSIUM 3.9 mmol/L (3.6-5.0)
[2016-11-21] MEDS: AMOXICILLIN TR/POT CLAVULANATE 500-125 MG TAB PO SCH ×3 (06:31→21:27)
[2016-11-21] MEDS ORDERED: CARVEDILOL 3.125 MG TABLET PO SCH (07:39)
[2016-11-21] MEDS: FAMOTIDINE 20 MG TABLET PO SCH ×2 (09:12→21:27)
[2016-11-21] MEDS: FUROSEMIDE 40 MG TABLET PO SCH (09:13)
[2016-11-21] MEDS: SITAGLIPTIN PHOSPHATE 25 MG TABLET PO SCH (09:14)
[2016-11-21] MEDS: INSULIN LISPRO 100 UNIT/ML 3 ML VIAL SUBCUT PRN ×3 (09:15→21:33)
[2016-11-21] MEDS: ENOXAPARIN SODIUM INJ 40 MG/0.4 ML DISP.SYRIN SUBCUT SCH (09:16)
[2016-11-21] MEDS: HYDROCODONE/ACETAMINOPHEN 5-325 MG TABLET PO PRN (13:04)
--- NOTE | 2016-11-21 13:36 | PDOC PROGRESS REPORT ---
Subjective Progress Note for:: 11/21/16 Subjective:: JEANNE DELEON is a 46 year old male with a history of diabetes type 2, hypertension, acute kidney injury, recent admission for diabetic foot ulcer/ cellulitis and right fifth digit amputation, and medical noncompliance. He is a poor historian. He tells me he has been short of breath for months but he was just in the hospital here from November 03 - November 10, 2016 and 2 this was not 1 of the issues during that hospitalization. He presents now with difficulty breathing and. He was found to be hypoxic with an O2 saturation of 80% on room air. He also gives a history of falling 3 times last night. He has a contusion of his left periorbital area. In the ED, the chest x-ray shows increased perihilar density bilaterally, left greater than right, with the differential including pulmonary edema and pneumonia. The WBC is 10.3. Hemoglobin is 9.8. BUN 28, creatinine 1.51 for a GFR greater than 60. Troponin is slightly elevated at 0.071. BNP 3740. CTA of the chest shows no evidence of acute pulmonary emboli or thoracic aortic dissection. It does show diffuse alveolar and interstitial infiltrates with trace bilateral pleural effusions worrisome for fluid overload. An underlying left upper lobe pneumonia could not entirely be excluded. A CT of the head negative for acute intracranial abnormality or skull fracture. The patient will be admitted to the ICU for further evaluation and treatment of apparently new onset CHF. The 11/18/2016 echocardiogram shows evidence of LVH and diastolic dysfunction. The patient is improving on Lasix and beta-reji. 11/21 - Today he continues breathing more easily, on 3L O2/nasal cannula, however he desaturated this morning to the high 80's when trying to wean the O2. He is eating and drinking. He ambulates short distances without difficulty with his O2 on. As a separate concern, he has a recent right toe amputation debridement of the lateral distal aspect of the foot. He has an open wound. Surgical f/u and recommendations noted. Physical Exam Vital Signs: Temp Pulse Resp BP Pulse Ox 98.4 F 101 H 18 116/68 95 11/21/16 12:00 11/21/16 12:00 11/21/16 12:00 11/21/16 12:00 11/21/16 12:00 Intake & Output 0511/21/16 11/22/16 06:59 06:59 06:59 Intake Total 244 1516 Output Total 4711 0130 Balance -7716 -514 Weight 105.5 kg Additional comments: General appearance: PRESENT: no acute distress, obese, off BiPAP, on nasal cannula Head exam: PRESENT: normocephalic, other - Bruising around the left orbit Eye exam: PRESENT: conjunctival injection, EOMI, periorbital swelling Ear exam: PRESENT: normal external ear exam Neck exam: ABSENT: carotid bruit, JVD, lymphadenopathy, thyromegaly Respiratory exam: PRESENT: coarse breath sounds, improving air movement, no wheezes Cardiovascular exam: PRESENT: RRR. ABSENT: irregular rhythm Pulses: PRESENT: other - dorsalis pedis pulses weak but palpable GI/Abdominal exam: PRESENT: normal bowel sounds, soft. ABSENT: distended, guarding, mass, organolmegaly, rebound, tenderness Rectal exam: PRESENT: deferred Extremities exam: PRESENT: trace edema. ABSENT: calf tenderness, clubbing Musculoskeletal exam: PRESENT: ambulatory. ABSENT: tenderness Neurological exam: PRESENT: alert, awake, oriented to person, oriented to place , CN II-XII grossly intact Psychiatric exam: PRESENT: appropriate affect Skin: open wound right lateral distal foot Results Laboratory Results: 11/21/16 05:12 11/21/16 05:12 11/21/16 11/21/16 05:12 05:12 WBC 5.9 RBC 3.47 L Hgb 9.7 L Hct 29.8 L MCV 86 MCH 28.0 MCHC 32.5 RDW 14.2 H Plt Count 332 Seg Neutrophils % 59.6 Lymphocytes % 26.3 Monocytes % 9.7 Eosinophils % 3.3 Basophils % 1.1 Absolute Neutrophils 3.5 Absolute Lymphocytes 1.6 Absolute Monocytes 0.6 Absolute Eosinophils 0.2 Absolute Basophils 0.1 Sodium 138.0 Potassium 3.9 Chloride 100 Carbon Dioxide 29 Anion Gap 9 BUN 19 Creatinine 1.35 H Est GFR ( Amer) > 60 Est GFR (Non-Af Amer) 57 L Glucose 163 H Calcium 8.9 11/19/16 04:30 Troponin I 0.026 NT-Pro-B Natriuret Pep 2860 H Impressions: Chest X-Ray 11/17/16 12:15 IMPRESSION: Increased parahilar density, left greater than right with differential including pulmonary edema and pneumonia. Foot X-Ray 11/17/16 12:28 IMPRESSION: The uneven edges of the metatarsal amputation are seen. There is no bone destruction to suggest osteomyelitis. Head CT 11/17/16 12:28 IMPRESSION: No acute intracranial abnormality identified. No skull fracture. Chest/Abdomen CTA 11/17/16 13:18 IMPRESSION: Diffuse alveolar and interstitial infiltrates with trace bilateral pleural effusions worrisome for chest or fluid overload. Underlying left upper lobe pneumonia could not entirely be excluded. No CT angio evidence of acute pulmonary emboli or thoracic aortic dissection Assessment & Plan - Diagnosis (1) CHF (congestive heart failure) Qualifiers: Congestive heart failure type: diastolic Congestive heart failure chronicity: acute Qualified Code(s): I50.31 - Acute diastolic (congestive ) heart failure Is this a current diagnosis for this admission?: YesPlan: This appears to be a new diagnosis. Echocardiogram shows low-normal EF 45-50% but LVH with moderate diastolic dysfunction. He continues to diurese, with a negative fluid balance daily. Will increase Coreg further. Discharge 24-48 hrs, when he can be weaned off supplemental O2.. (2) Hypoxemia Is this a current diagnosis for this admission?: YesPlan: Oxygen supplementation as needed. Improving. On low-flow nasal O2. Discharge when this can be weaned off. (3) HTN (hypertension) Qualifiers: Hypertension type: essential hypertension Qualified Code(s): I10 - Essential (primary) hypertension Is this a current diagnosis for this admission?: YesPlan: History of poor medication compliance. As above, echocardiogram noted and Lasix /Coreg started. (4) DM2 (diabetes mellitus, type 2) Qualifiers: Diabetes mellitus complication status: with ophthalmic complications Laterality: bilateral Is this a current diagnosis for this admission?: YesPlan: History of poor medication compliance. Hemoglobin A1c is 11.4. Continue current hospital Rx. (5) Status post amputation of lesser toe of right foot Is this a current diagnosis for this admission?: YesPlan: Surgical follow-up and recommendations noted.
[2016-11-21] MEDS: CARVEDILOL 12.5 MG TABLET PO SCH (21:27)
[2016-11-22] MEDS: AMOXICILLIN TR/POT CLAVULANATE 500-125 MG TAB PO SCH ×2 (05:23→15:03)
[2016-11-22] MEDS: FUROSEMIDE 40 MG TABLET PO SCH (09:25)
[2016-11-22] MEDS: SITAGLIPTIN PHOSPHATE 25 MG TABLET PO SCH (09:25)
[2016-11-22] MEDS: FAMOTIDINE 20 MG TABLET PO SCH (09:25)
[2016-11-22] MEDS: CARVEDILOL 12.5 MG TABLET PO SCH (09:25)
[2016-11-22] MEDS: ENOXAPARIN SODIUM INJ 40 MG/0.4 ML DISP.SYRIN SUBCUT SCH (09:26)
--- NOTE | 2016-11-22 14:22 | PDOC DISCHARGE SUMMARY ---
General - Admit/Disc Date/PCP Admission Date/Primary Care Provider: 11/17/16 15:22 NIYA TODD, Discharge Date: 11/22/16 - Discharge Diagnosis (1) CHF (congestive heart failure) Is this a current diagnosis for this admission?: YesSummary: improved with diuresis, continue low dose lasix as outpt until f/u with PCP in one week for further titration based on clinical condition/response. (2) Diabetic infection of right foot Is this a current diagnosis for this admission?: YesSummary: resume home health with wound vac and outpt wound lcinic f/u, see surgery's notes for details (3) Hypoxemia Is this a current diagnosis for this admission?: YesSummary: resolved. - Additional Information Discharge Diet: Cardiac, Diabetic Discharge Activity: Activity As Tolerated, Balance Activity w/Rest, Weigh Daily Home Medications: Acetaminophen [Tylenol Extra Strength 500 mg Tablet] 1 tab PO DAILYP PRN Hydrocodone/Acetaminophen [[place] 5-325 mg Tablet] 1 tab PO Q6HP PRN 11/17/16 Promethazine HCl [Phenergan 25 mg Tablet] 25 mg PO Q4HP PRN 11/17/16 Amox Tr/Potassium Clavulanate [Augmentin "500" Tablet] 1 tab PO Q8 tablet Carvedilol [Coreg 12.5 mg Tablet] 12.5 mg PO Q12 #60 tablet 11/22/16 Furosemide [Lasix] 40 mg PO DAILY #14 tablet 11/22/16 Sitagliptin Phosphate [Januvia 25 mg Tablet] 25 mg PO DAILY #30 tablet 11/22/16 History of Present Illness Patient complains of: SOA History of Present Illness: JEANNE DELEON is a 46 year old male JEANNE DELEON is a 46 year old male with a history of diabetes type 2, hypertension, acute kidney injury, recent admission for diabetic foot ulcer/cellulitis and right fifth digit amputation, and medical noncompliance. He is a poor historian. He tells me he has been short of breath for months but he was just in the hospital here from November 03 - November 10, 2016 and 2 this was not 1 of the issues during that hospitalization. He presents now with difficulty breathing and. He was found to be hypoxic with an O2 saturation of 80% on room air. He also gives a history of falling 3 times last night. He has a contusion of his left periorbital area. Hospital Course Hospital Course: In the ED, the chest x-ray shows increased perihilar density bilaterally, left greater than right, with the differential including pulmonary edema and pneumonia. The WBC is 10.3. Hemoglobin is 9.8. BUN 28, creatinine 1.51 for a GFR greater than 60. Troponin is slightly elevated at 0.071. BNP 3740. CTA of the chest shows no evidence of acute pulmonary emboli or thoracic aortic dissection. It does show diffuse alveolar and interstitial infiltrates with trace bilateral pleural effusions worrisome for fluid overload. An underlying left upper lobe pneumonia could not entirely be excluded. A CT of the head negative for acute intracranial abnormality or skull fracture. The patient will be admitted to the ICU for further evaluation and treatment of apparently new onset CHF. The 11/18/2016 echocardiogram shows evidence of LVH and diastolic dysfunction. The patient is improving on Lasix and beta-reji. 11/21 - Today he continues breathing more easily, on 3L O2/nasal cannula, however he desaturated this morning to the high 80's when trying to wean the O2. He is eating and drinking. He ambulates short distances without difficulty with his O2 on. As a separate concern, he has a recent right toe amputation debridement of the lateral distal aspect of the foot. He has an open wound. Surgical f/u and recommendations noted. he diuresed nicely and quickly weaned off the supplemental O2 returning to baseline >24 hrs prior to d/c. he is up ambulating with resp distress or hypoxemia and is stable for d/c home at this time. he is to f/u with wound care in one week , resume home health for ongoing wound vac and home wound care per surgery's directions, f/u with PCP in one week for futher eval and treatment. return to the ED for worsening condition. Physical Exam Vital Signs: Temp Pulse Resp BP Pulse Ox 98.6 F 99 20 124/73 92 11/22/16 12:24 11/22/16 12:24 11/22/16 12:24 11/22/16 12:24 11/22/16 12:24 Intake & Output 11/21/16 11/22/16 11/23/16 06:59 06:59 06:59 Intake Total 1516 1258 Output Total 2200 2280 Balance -684 -1022 Weight 105.5 kg General appearance: PRESENT: no acute distress, obese, well-developed, well- nourished Head exam: PRESENT: atraumatic, normocephalic Eye exam: ABSENT: conjunctival injection, scleral icterus Neck exam: PRESENT: full ROM. ABSENT: tracheal deviation Respiratory exam: PRESENT: clear to auscultation donna, unlabored. ABSENT: accessory muscle use Cardiovascular exam: PRESENT: RRR. ABSENT: diastolic murmur GI/Abdominal exam: PRESENT: normal bowel sounds, soft. ABSENT: tenderness Extremities exam: ABSENT: calf tenderness, pedal edema Neurological exam: PRESENT: alert, awake, oriented to person, oriented to place , oriented to time, oriented to situation Psychiatric exam: PRESENT: appropriate affect, normal mood Results Laboratory Results: 11/21/16 05:12 11/21/16 05:12 11/19/16 04:30 Troponin I 0.026 NT-Pro-B Natriuret Pep 2860 H Impressions: Chest X-Ray 11/17/16 12:15 IMPRESSION: Increased parahilar density, left greater than right with differential including pulmonary edema and pneumonia. Foot X-Ray 11/17/16 12:28 IMPRESSION: The uneven edges of the metatarsal amputation are seen. There is no bone destruction to suggest osteomyelitis. Head CT 11/17/16 12:28 IMPRESSION: No acute intracranial abnormality identified. No skull fracture. Chest/Abdomen CTA 11/17/16 13:18 IMPRESSION: Diffuse alveolar and interstitial infiltrates with trace bilateral pleural effusions worrisome for chest or fluid overload. Underlying left upper lobe pneumonia could not entirely be excluded. No CT angio evidence of acute pulmonary emboli or thoracic aortic dissection Qualifiers PATEINT BEING DISCHARGED WITH ANY OF THE FOLLOWING DIAGNOSIS?: No VTE patient discharged on overlapping Therapy?: No Reason(s) for not prescribing Overlap Therapy:: Not indicated Plan Discharge Plan: d/c home, f/u as instructed above Time Spent: Greater than 30 Minutes
[2016-11-22 16:11] VITALS: BP 124/73
== END 2016-11-22 15:20 | disposition home health service (06) | DRG 293 ==
LOC: ER 11:55 → EH 15:22 → UNDOADMIN 15:44 → EH 15:44 → ICU 17:59 → 3S 11-20 00:31
PROVIDERS: ADMIT Internal Medicine; ATTEND Internal Medicine
DX: I11.0 Hypertensive heart disease with heart failure (principal); I50.31 Acute diastolic (congestive) heart failure; R09.02 Hypoxemia; E11.621 Type 2 diabetes mellitus with foot ulcer; L97.519 Non-pressure chronic ulcer of other part of right foot with unspecified severity; F32.9 Major depressive disorder, single episode, unspecified; S05.12XA Contusion of eyeball and orbital tissues, left eye, initial encounter; S00.91XA Abrasion of unspecified part of head, initial encounter; E11.51 Type 2 diabetes mellitus with diabetic peripheral angiopathy without gangrene; E66.9 Obesity, unspecified; Z89.421 Acquired absence of other right toe(s); W19.XXXA Unspecified fall, initial encounter; Z79.4 Long term (current) use of insulin; Z91.19 Patient's noncompliance with other medical treatment and regimen; Z83.3 Family history of diabetes mellitus; Z82.49 Family history of ischemic heart disease and other diseases of the circulatory system; Z79.899 Other long term (current) drug therapy; Z68.34 Body mass index [BMI] 34.0-34.9, adult
CPT/HCPCS: 36415; 70450; 71010; 71275; 80048; 80053; 81001; 82553; 82803; 82962; 83036; 83605; 83880; 84484; 85025; 85610; 87040; 87070; 87077; 87086; 87186; 87205; 93005; 93010; 93306; 94660; 99291; 99292; J0692; J0696; J1650; J1815; J1940; J1956; J3370; J3490; J7030

== ENCOUNTER 2017-03-08 16:11 | Emergency (ER) | payer SELFPAY ==
--- NOTE | 2017-03-08 16:46 | ER Document Report ---
ED Medical Screen (RME) - General Chief Complaint: Shortness Of Breath Stated Complaint: SHORTNESS OF BREATH Time Seen by Provider: 03/08/17 16:37 Mode of Arrival: Ambulatory Information source: Patient TRAVEL OUTSIDE OF THE [place] IN LAST 30 DAYS: No - HPI Patient complains to provider of: sob Onset: Other - Pt. was seen here earlier this month for similar c/o. Told he has CHF but feels lasix isn't working. - Related Data Allergies/Adverse Reactions: No Known Allergies Allergy (Verified 03/08/17 16:21) Past Medical History - Social History Frequency of alcohol use: None Drug Abuse: None - Past Medical History Cardiac Medical History: Reports: Hx Congestive Heart Failure, Hx Hypertension, Hx Peripheral Vascular Disease Pulmonary Medical History: Reports: Hx Bronchitis, Hx Pneumonia Endocrine Medical History: Reports: Hx Diabetes Mellitus Type 2 Renal/ Medical History: Denies: Hx Peritoneal Dialysis Psychiatric Medical History: Reports: Hx Depression Past Surgical History: Reports: Hx Orthopedic Surgery - Right 5th toe amputation , Other - Removal of "tumor" from the right thigh, removal of multiple boils - Immunizations Hx Diphtheria, Pertussis, Tetanus Vaccination: No Physical Exam - Vital signs Vitals: Temp Pulse Resp BP Pulse Ox 98.8 F 109 H 18 118/83 94 03/08/17 16:21 03/08/17 16:21 03/08/17 16:21 03/08/17 16:21 03/08/17 16:21 Course - Vital Signs Vital signs: Temp Pulse Resp BP Pulse Ox 98.8 F 109 H 18 118/83 94 03/08/17 16:21 03/08/17 16:21 03/08/17 16:21 03/08/17 16:21 03/08/17 16:21
[2017-03-08 17:44] LABS: ABSOLUTE BASOPHILS # (AUTO) 0.1 10^3/uL (0.0-0.2); ABSOLUTE EOSINOPHILS # (AUTO) 0.1 10^3/uL (0.0-0.6); ABSOLUTE MONOCYTES (AUTO) 0.6 10^3/uL (0.1-1.4); ABSOLUTE NEUT (AUTO) 3.5 10^3/uL (1.7-8.2); BASOPHILS % (AUTO) 1.1 % (0-2); EOSINOPHILS % (AUTO) 2.2 % (0-6); HEMATOCRIT 33.8 % (37.9-51.0); HGB HCT DIFFERENCE -0.8; LYMPHOCYTES % (AUTO) 18.8 % (13-45); MEAN CORPUSCULAR HEMOGLOBIN 27.3 pg (27.0-33.4); MEAN CORPUSCULAR HGB CONC 32.7 g/dL (32.0-36.0); MEAN CORPUSCULAR VOLUME 84 fl (80-97); MONOCYTES % (AUTO) 11.6 % (3-13); RED BLOOD COUNT 4.04 10^6/uL (4.35-5.55); RED CELL DISTRIBUTION WIDTH 16.4 % (11.5-14.0); SEGMENTED NEUTROPHILS % (AUTO) 66.3 % (42-78); WHITE BLOOD COUNT 5.3 10^3/uL (4.0-10.5)
--- NOTE | 2017-03-08 17:50 | RADIOLOGY REPORT (SQ) ---
EXAM DESCRIPTION: CHEST PA/LAT COMPLETED DATE/TIME: 03/08/2017 5:41 pm REASON FOR STUDY: SOB COMPARISON: 02/24/2017 EXAM PARAMETERS: NUMBER OF VIEWS: two views TECHNIQUE: Digital Frontal and Lateral radiographic views of the chest acquired. RADIATION DOSE: NA LIMITATIONS: none FINDINGS: LUNGS AND PLEURA: Minimal atelectasis in the right base. No consolidation. No effusions. MEDIASTINUM AND HILAR STRUCTURES: No masses or contour abnormalities. HEART AND VASCULAR STRUCTURES: Heart size is stable. There is no overt failure. BONES: No acute findings. HARDWARE: None in the chest. OTHER: No other significant finding. IMPRESSION: Minimal right basilar atelectasis. No overt failure or consolidation. TECHNICAL DOCUMENTATION: JOB ID: [id number] [employer]- All Rights Reserved
[2017-03-08 18:16] LABS: CREATINE KINASE MB 2.63 ng/mL (<4.55); TROPONIN I < 0.012 ng/mL
[2017-03-08 18:21] LABS: ALANINE AMINOTRANSFERASE 53 U/L (21-72); ALBUMIN 3.4 g/dL (3.5-5.0); ALKALINE PHOSPHATASE 64 U/L (38-126); ANION GAP 10 (5-19); ASPARTATE AMINO TRANSFERASE 93 U/L (17-59); BILIRUBIN,DIRECT 0.5 mg/dL (0.0-0.4); BILIRUBIN,TOTAL 1.4 mg/dL (0.2-1.3); BLOOD UREA NITROGEN 23 mg/dL (7-20); CARBON DIOXIDE 23 mmol/L (22-30); CHLORIDE 109 mmol/L (98-107); CREATININE RESULT 1.17 mg/dL (0.52-1.25); GLUCOSE 109 mg/dL (75-110); POTASSIUM 4.6 mmol/L (3.6-5.0); TOTAL PROTEIN 6.4 g/dL (6.3-8.2)
[2017-03-08 18:22] LABS: CREATINE KINASE 6272 U/L (55-170)
[2017-03-08] MEDS ORDERED: FUROSEMIDE 80 MG TABLET PO ONE (19:56)
[2017-03-08] MEDS ORDERED: ALBUTEROL SULFATE 0.083% NEB 2.5 MG/3 ML AMPUL NEB ONE (19:56)
--- NOTE | 2017-03-08 19:57 | ER Document Report ---
ED Respiratory Problem - General Chief Complaint: Shortness Of Breath Stated Complaint: SHORTNESS OF BREATH Time Seen by Provider: 03/08/17 16:37 Mode of Arrival: Ambulatory Information source: Patient Notes: Patient is a 46-year-old male who has been told that he has congestive heart failure and takes Lasix who presents to the ER today for shortness of breath times multiple weeks with a cough 1 week that is dry and nonproductive. Patient has not taken his Lasix in 2 days because he ran out. Patient is also noncompliant with his Januvia for his diabetes. Patient does not have a primary care provider and only gets his medications from here in the emergency department. He admits to swelling of his legs and swelling of his abdomen over the past few days. He denies any fever, chills. He admits to wheezing but denies any history of COPD or asthma. He does not have any nebulizer or inhalers at home. He does not smoke. TRAVEL OUTSIDE OF THE [place] IN LAST 30 DAYS: No - Related Data Allergies/Adverse Reactions: No Known Allergies Allergy (Verified 03/08/17 16:21) Home Medications: Current Home Medications Furosemide [Lasix 40 mg Tablet] 40 mg PO QAM 03/08/17 [History] Past Medical History - General Information source: Patient - Social History Smoking Status: Never Smoker Frequency of alcohol use: None Drug Abuse: None Family History: Reviewed & Not Pertinent, CAD, DM, Hypertension - Past Medical History Cardiac Medical History: Reports: Hx Congestive Heart Failure, Hx Hypertension, Hx Peripheral Vascular Disease Pulmonary Medical History: Reports: Hx Bronchitis, Hx Pneumonia Endocrine Medical History: Reports: Hx Diabetes Mellitus Type 2 Renal/ Medical History: Denies: Hx Peritoneal Dialysis Psychiatric Medical History: Reports: Hx Depression Past Surgical History: Reports: Hx Orthopedic Surgery - Right 5th toe amputation , Other - Removal of "tumor" from the right thigh, removal of multiple boils - Immunizations Hx Diphtheria, Pertussis, Tetanus Vaccination: No Hx Pneumococcal Vaccination: 10/05/13 Review of Systems - Review of Systems Constitutional: No symptoms reported EENT: No symptoms reported Cardiovascular: No symptoms reported Respiratory: See HPI Gastrointestinal: No symptoms reported Genitourinary: No symptoms reported Male Genitourinary: No symptoms reported Musculoskeletal: No symptoms reported Skin: See HPI Hematologic/Lymphatic: No symptoms reported Neurological/Psychological: No symptoms reported Physical Exam - Vital signs Vitals: Temp Pulse Resp BP Pulse Ox 98.8 F 109 H 18 118/83 94 03/08/17 16:21 03/08/17 16:21 03/08/17 16:21 03/08/17 16:21 03/08/17 16:21 - Notes Notes: PHYSICAL EXAMINATION: GENERAL: Mildly ill-appearing, but in no acute distress. HEAD: Atraumatic, normocephalic. EYES: Pupils equal round and reactive to light, extraocular movements intact, sclera anicteric, conjunctiva are normal. ENT: ear canals without erythema or foreign body, TMs pearly navarrete with good bony landmarks, nares patent, oropharynx clear without exudates. Moist mucous membranes. NECK: Normal range of motion, supple without lymphadenopathy LUNGS: Mild expiratory wheezes, no rales or rhonchi. HEART: Regular rate and rhythm without murmurs ABDOMEN: Soft, no tenderness. No guarding, no rebound BACK: no vertebral tenderness, normal ROM GI/: no CVA tenderness EXTREMITIES: Normal range of motion, trace pitting edema bilateral lower extremities. No cyanosis. NEUROLOGICAL: Cranial nerves grossly intact. Normal sensory/motor exams. PSYCH: Normal mood, normal affect. SKIN: Warm, Dry, normal turgor, no rashes or lesions noted Course - Re-evaluation Re-evalutation: 03/08/17 21:08 Chest x-ray reveals atelectasis but no pulmonary edema or effusions, no pneumonia. White blood cell count is normal today. Patient is wheezing on exam , albuterol and nebulized helped here in the ER. I did give patient a dose of his normal Lasix at 40 mg here. I will prescribe this and give him information [facility] with because he does not have insurance. I did advise that he needs to follow-up with a primary care provider about his medical issues.His bnp is 7240 here today. He's 94% on room air. - Vital Signs Vital signs: Temp Pulse Resp BP Pulse Ox 98.8 F 115 H 18 141/98 H 94 03/08/17 16:21 03/08/17 20:10 03/08/17 16:21 03/08/17 20:10 03/08/17 16:21 - Laboratory Result Diagrams: 03/08/17 17:21 03/08/17 17:21 Laboratory results interpreted by me: 03/08/17 03/08/17 03/08/17 17:21 17:21 17:21 RBC 4.04 L Hgb 11.0 L Hct 33.8 L RDW 16.4 H Chloride 109 H BUN 23 H Total Bilirubin 1.4 H Direct Bilirubin 0.5 H AST 93 H Creatine Kinase 6272 H NT-Pro-B Natriuret Pep 7240 H Albumin 3.4 L Discharge - Discharge Clinical Impression: Bronchitis CHF (congestive heart failure) Qualifiers: Congestive heart failure type: unspecified congestive heart failure type Congestive heart failure chronicity: unspecified congestive heart failure chronicity Qualified Code(s): I50.9 - Heart failure, unspecified Condition: Stable Disposition: HOME, SELF-CARE Instructions: Congestive Heart Failure ([facility]), Bronchitis With Bronchospasm ( Wheezing) ([facility]) Additional Instructions: Return immediately for any new or worsening symptoms. Follow up with primary care provider, call tomorrow to make followup appointment. Prescriptions: Azithromycin [Zithromax 250 mg Tablet] 250 mg PO ASDIR PRN #6 tablet PRN Reason: Furosemide [Lasix 40 mg Tablet] 40 mg PO BID #30 tablet Referrals: NIYA TODD DO [Primary Care Provider] - Follow up as needed
[2017-03-08] MEDS ORDERED: FUROSEMIDE 40 MG TABLET PO ONE (20:08)
[2017-03-08] MEDS ORDERED: ALBUTEROL SULFATE HFA (90 MCG/PUFF) 8 GM MDI (1 MDI/ER DISP) IH PRN (21:11)
[2017-03-08 21:57] VITALS: BP 143/98
--- NOTE | 2017-03-08 22:49 | EKG REPORT ---
SEVERITY:- BORDERLINE ECG - SINUS TACHYCARDIA BORDERLINE T ABNORMALITIES, ANT-LAT LEADS : Confirmed by: Micheal Angeles 08-Mar-2017 22:48:17
== END 2017-03-08 21:57 | disposition home or self-care (01) ==
LOC: ER 16:11
DX: J40 Bronchitis, not specified as acute or chronic (principal); I50.9 Heart failure, unspecified; R06.02 Shortness of breath; Z79.899 Other long term (current) drug therapy; M79.89 Other specified soft tissue disorders
CPT/HCPCS: 93005; 94640; 99284; 36415; 82553; 82550; 85025; 80053; 84484; 83880; 71020; 93010; J3490

== ENCOUNTER 2017-03-23 18:18 | Emergency (ER) | payer SELFPAY ==
--- NOTE | 2017-03-23 19:43 | ER Document Report ---
ED Medical Screen (RME) - General Chief Complaint: Shortness Of Breath Stated Complaint: SHORTNESS OF BREATH,COUGH,DIARRHEA Time Seen by Provider: 03/23/17 19:23 Notes: Patient presents with leg swelling abdominal swelling and shortness of breath. He states that he has trouble laying flat. He states he has been diagnosed with CHF here -however when he recently went to [facility] they told him he did not have CHF. He states that all of the swelling and abdominal bloating seem to have started several months ago after a toe amputation. TRAVEL OUTSIDE OF THE [place] IN LAST 30 DAYS: No - Related Data Allergies/Adverse Reactions: No Known Allergies Allergy (Verified 03/23/17 18:23) Past Medical History - Social History Chew tobacco use (# tins/day): No Frequency of alcohol use: None Drug Abuse: None - Past Medical History Cardiac Medical History: Reports: Hx Congestive Heart Failure, Hx Hypertension, Hx Peripheral Vascular Disease Pulmonary Medical History: Reports: Hx Bronchitis, Hx Pneumonia Endocrine Medical History: Reports: Hx Diabetes Mellitus Type 2 Renal/ Medical History: Denies: Hx Peritoneal Dialysis Psychiatric Medical History: Reports: Hx Depression Past Surgical History: Reports: Hx Orthopedic Surgery - Right 5th toe amputation , Other - Removal of "tumor" from the right thigh, removal of multiple boils - Immunizations Hx Diphtheria, Pertussis, Tetanus Vaccination: Yes Physical Exam - Vital signs Vitals: Temp Pulse Resp BP Pulse Ox 98.5 F 110 H 12 138/97 H 100 03/23/17 18:24 03/23/17 18:24 03/23/17 18:24 03/23/17 18:24 03/23/17 18:24 Course - Vital Signs Vital signs: Temp Pulse Resp BP Pulse Ox 98.5 F 110 H 12 138/97 H 100 03/23/17 18:24 03/23/17 18:24 03/23/17 18:24 03/23/17 18:24 03/23/17 18:24
--- NOTE | 2017-03-23 20:37 | RADIOLOGY REPORT (SQ) ---
EXAM DESCRIPTION: CHEST PA/LAT COMPLETED DATE/TIME: 03/23/2017 7:33 pm REASON FOR STUDY: sob COMPARISON: 03/08/2017 EXAM PARAMETERS: NUMBER OF VIEWS: two views TECHNIQUE: Digital Frontal and Lateral radiographic views of the chest acquired. RADIATION DOSE: NA LIMITATIONS: none FINDINGS: LUNGS AND PLEURA: No opacities, masses or pneumothorax. No pleural effusion. MEDIASTINUM AND HILAR STRUCTURES: No masses or contour abnormalities. HEART AND VASCULAR STRUCTURES: Cardiac silhouette remains at the upper limits of normal in size. BONES: No acute findings. HARDWARE: None in the chest. OTHER: No other significant finding. IMPRESSION: NO SIGNIFICANT RADIOGRAPHIC FINDING IN THE CHEST. TECHNICAL DOCUMENTATION: JOB ID: [id number] [email or web address]- All Rights Reserved
[2017-03-23 21:10] LABS: ABSOLUTE BASOPHILS # (AUTO) 0.1 10^3/uL (0.0-0.2); ABSOLUTE EOSINOPHILS # (AUTO) 0.1 10^3/uL (0.0-0.6); ABSOLUTE LYMPHOCYTES (AUTO) 1.5 10^3/uL (0.5-4.7); ABSOLUTE MONOCYTES (AUTO) 0.6 10^3/uL (0.1-1.4); ABSOLUTE NEUT (AUTO) 3.1 10^3/uL (1.7-8.2); BASOPHILS % (AUTO) 1.3 % (0-2); EOSINOPHILS % (AUTO) 1.7 % (0-6); HEMOGLOBIN 10.9 g/dL (13.5-17.0); HGB HCT DIFFERENCE -1.3; LYMPHOCYTES % (AUTO) 27.6 % (13-45); MEAN CORPUSCULAR HEMOGLOBIN 26.6 pg (27.0-33.4); MEAN CORPUSCULAR HGB CONC 32.2 g/dL (32.0-36.0); MEAN CORPUSCULAR VOLUME 83 fl (80-97); MONOCYTES % (AUTO) 11.9 % (3-13); RED BLOOD COUNT 4.12 10^6/uL (4.35-5.55); RED CELL DISTRIBUTION WIDTH 16.2 % (11.5-14.0); SEGMENTED NEUTROPHILS % (AUTO) 57.5 % (42-78); WHITE BLOOD COUNT 5.4 10^3/uL (4.0-10.5)
[2017-03-23 21:14] LABS: APPEARANCE,URINE CLEAR; BILIRUBIN,URINE NEGATIVE (NEGATIVE); GLUCOSE, URINE NEGATIVE (NEGATIVE); KETONES,URINE NEGATIVE (NEGATIVE); LEUKOCYTE ESTERASE,URINE NEGATIVE (NEGATIVE); NITRITE,URINE NEGATIVE (NEGATIVE); PROTEIN,URINE >=500 mg/dL (NEGATIVE); URINE SPECIFIC GRAVITY 1.014; UROBILINOGEN,URINE NEGATIVE mg/dL (<2.0)
[2017-03-23 21:18] LABS: ALANINE AMINOTRANSFERASE 42 U/L (21-72); ALBUMIN 3.6 g/dL (3.5-5.0); ALKALINE PHOSPHATASE 67 U/L (38-126); ANION GAP 6 (5-19); ASPARTATE AMINO TRANSFERASE 42 U/L (17-59); BILIRUBIN,DIRECT 0.3 mg/dL (0.0-0.4); BILIRUBIN,TOTAL 0.7 mg/dL (0.2-1.3); BLOOD UREA NITROGEN 24 mg/dL (7-20); CALCIUM 9.3 mg/dL (8.4-10.2); CARBON DIOXIDE 25 mmol/L (22-30); CHLORIDE 113 mmol/L (98-107); CREATININE RESULT 1.18 mg/dL (0.52-1.25); GLUCOSE 122 mg/dL (75-110); POTASSIUM 4.4 mmol/L (3.6-5.0); SODIUM 144.4 mmol/L (137-145); TOTAL PROTEIN 6.8 g/dL (6.3-8.2)
[2017-03-23] MEDS ORDERED: FUROSEMIDE 40 MG TABLET PO ONE (22:15)
--- NOTE | 2017-03-23 22:19 | ER Document Report ---
ED General - General Chief Complaint: Shortness Of Breath Stated Complaint: SHORTNESS OF BREATH,COUGH,DIARRHEA Time Seen by Provider: 03/23/17 19:23 Notes: Patient is a 46-year-old male who presents to the ER frequently because of swelling and edema. He has been seen here multiple times in the past. His BNP is always elevated. He was has edema in his lower extremities. He still does not see a primary care physician. Patient says he continues to have swelling. I asked him if he has been taking his Lasix. Initially he was hesitant to answer and then eventually said yes. I asked him how much he takes at least 40 mg. Aspirin once or twice a day. He once again hesitated and said twice because he took it tonight as well. Looking through his records it appears that he is usually noncompliant with his medications however the patient tells me that he is compliant now has been taking them. Patient says he was referred to a tobacco prizer but has not yet called to make the appointment. He still has not seen a primary care physician. He says he is almost out of his Lasix. He does admit to eating some salty foods including hot dogs. He denies any chest pain. He says that he still has edema in his lower extremities that goes up into his abdomen. He says he sometimes feels short of breath if he lays to flat. He otherwise has no other complaints. He denies any fevers. No other issues at this time. TRAVEL OUTSIDE OF THE [place] IN LAST 30 DAYS: No - Related Data Allergies/Adverse Reactions: No Known Allergies Allergy (Verified 03/23/17 18:23) Past Medical History - Social History Smoking Status: Never Smoker Chew tobacco use (# tins/day): No Frequency of alcohol use: None Drug Abuse: None Family History: Reviewed & Not Pertinent, CAD, DM, Hypertension - Past Medical History Cardiac Medical History: Reports: Hx Congestive Heart Failure, Hx Hypertension, Hx Peripheral Vascular Disease Pulmonary Medical History: Reports: Hx Bronchitis, Hx Pneumonia Endocrine Medical History: Reports: Hx Diabetes Mellitus Type 2 Renal/ Medical History: Denies: Hx Peritoneal Dialysis Psychiatric Medical History: Reports: Hx Depression Past Surgical History: Reports: Hx Orthopedic Surgery - Right 5th toe amputation , Other - Removal of "tumor" from the right thigh, removal of multiple boils - Immunizations Hx Diphtheria, Pertussis, Tetanus Vaccination: Yes Hx Pneumococcal Vaccination: 10/05/13 Review of Systems - Review of Systems Notes: My Normal Review Basic REVIEW OF SYSTEMS: CONSTITUTIONAL : Denies fever, chills, or sweats. Denies recent illness. EENT: Denies eye, ear, throat, or mouth pain or symptoms. Denies nasal or sinus congestion. CARDIOVASCULAR: Denies chest pain. RESPIRATORY: Shortness of breath with lying flat. GASTROINTESTINAL: Denies abdominal pain. Denies nausea, vomiting, or diarrhea. Denies constipation. Last BM: MUSCULOSKELETAL: Lower Extremity edema. SKIN: Denies rash or skin lesions. NEUROLOGICAL: Denies altered mental status or loss of consciousness. Denies headache. Denies weakness or paralysis or loss of use of either side. Denies problems with gait or speech. Denies sensory or motor loss. ALL OTHER SYSTEMS REVIEWED AND NEGATIVE. Physical Exam - Vital signs Vitals: Temp Pulse Resp BP Pulse Ox 98.5 F 110 H 12 138/97 H 100 03/23/17 18:24 03/23/17 18:24 03/23/17 18:24 03/23/17 18:24 03/23/17 18:24 - Notes Notes: General Appearance: Well nourished, alert, cooperative, no acute distress, no obvious discomfort. Well Appearing. Vitals: reviewed, See vital signs table. Head: no swelling or tenderness to the head Eyes: PERRL, EOMI, Conjuctiva clear Mouth: No decreasd moisture Lungs: No wheezing, No rales, No rhonci, No accessory muscle use, good air exchange bilaterally. Heart: Normal rate, Regular rythm, No murmur, no rub Abdomen: Normal BS, soft, No rigidity, No abdominal tenderness, No guarding, no rebound, no abdominal masses, no organomegaly Extremities: strength 5/5 in all extremities, good pulses in all extremities, no swelling or tenderness in the extremities, 2+ bilateral lower extremity edema. Skin: warm, dry, appropriate color, no rash Neuro: speech clear, oriented x 3, normal affect, responds appropriately to questions. Course - Re-evaluation Re-evalutation: 03/23/17 22:47 Patient is very well-appearing. I feel the patient safe to be discharged home. He does have a lot of edema in his lower extremities. His lung masters are completely clear and his chest x-ray is normal. His cardiac enzymes are negative. BNP was not ordered in triage; however, I do not feel that this will add to his disposition at this time being that clinically he looks extremely well and is in no distress and has normal vital signs. Except for the slight tachycardia. I did review his last 4 visits. In all 4 visits his heart rate ranges from low 100s-1 teens. Today his heart rate is right around 105-108. This is exactly where his heart rate typically runs in comparison to his previous records. I had a long discussion with the patient about his health. I informed him that it is extremely important he does follow up with a tobacco prizer. I informed him that he must cut all salt of his food. Informed if he continues to live this way that he will only get worse and this could be very detrimental to his life and health. He is adamant that he now takes his Lasix twice a day; however, I am still concerned that when I asked him about this he was very hesitant to answer. I will increase his morning dose of Lasix to 60 mg. I will write another prescription for his Lasix because he tells me is almost out. I encouraged him to keep his legs elevated when he is sitting. Encouraged him return to ER if he has difficulty breathing, fevers, chest pain, or worsening edema. I will also give him referral to an our tobacco prizer ignition specialist in case he is having hard time getting into the tobacco prizer he was previously referred to. Patient agrees with plan and will be discharged home. Dictation of this chart was performed using voice recognition software; therefore, there may be some unintended grammatical errors. - Vital Signs Vital signs: Temp Pulse Resp BP Pulse Ox 97.8 F 100 18 151/101 H 98 03/23/17 22:41 03/23/17 22:41 03/23/17 22:41 03/23/17 22:41 03/23/17 22:41 - Laboratory Result Diagrams: 03/23/17 20:50 03/23/17 20:17 Laboratory results interpreted by me: 03/23/17 03/23/17 03/23/17 20:17 20:50 20:55 RBC 4.12 L Hgb 10.9 L Hct 34.0 L MCH 26.6 L RDW 16.2 H Chloride 113 H BUN 24 H Glucose 122 H Urine Protein >=500 H Urine Blood MODERATE H - EKG Interpretation by Me Additional EKG results interpreted by me: 03/23/17 22:20 EKG is reviewed and interpreted by me. EKG shows sinus tachycardia with a rate of [address] segment elevation or depression. No ischemic T-wave inversions. CO interval, QRS duration, QTc intervals are within normal range. Old EKG for comparison is from March 08, 2017. Discharge - Discharge Clinical Impression: Peripheral edema Condition: Good Disposition: HOME, SELF-CARE Additional Instructions: It is very important that you eliminate all salt from your diet. Please increase your lasix from 40mg twice a day to 60mg in the am and 40mg at night. Please call the tobacco prizer you were referred to to make a close follow up appointemnt. If you cannot get into the tobacco prizer in 3-[address] Angeles, our ignition specialist tobacco prizer, to get in to see him within the next 3-4 days. Please return to the ER immeidately if you have diffiuclty breahting, fevers, chest pain, or feel that you swelling is worsening, or feel unwell. Prescriptions: Furosemide [Lasix 20 mg Tablet] 20 mg PO ASDIR #60 tablet Forms: Return to Work
[2017-03-23 22:42] VITALS: BP 151/101
--- NOTE | 2017-03-24 03:55 | EKG REPORT ---
SEVERITY:- BORDERLINE ECG - SINUS TACHYCARDIA PROBABLE LEFT ATRIAL ABNORMALITY BORDERLINE T WAVE ABNORMALITIES : Confirmed by: Dayanna Nicholas MD 24-Mar-2017 03:54:35
== END 2017-03-23 23:40 | disposition home or self-care (01) ==
LOC: ER 18:18
DX: R60.0 Localized edema (principal); R06.02 Shortness of breath
CPT/HCPCS: 36415; 71020; 80053; 81001; 84484; 85025; 93005; 93010; 99285

== ENCOUNTER 2017-03-24 22:48 | Emergency (ER) | payer SELFPAY ==
--- NOTE | 2017-03-24 23:22 | RADIOLOGY REPORT (SQ) ---
EXAM DESCRIPTION: CHEST SINGLE VIEW COMPLETED DATE/TIME: 03/24/2017 11:14 pm REASON FOR STUDY: shortness of breath COMPARISON: 03/23/2017 EXAM PARAMETERS: NUMBER OF VIEWS: One view. TECHNIQUE: Single frontal radiographic view of the chest acquired. RADIATION DOSE: NA LIMITATIONS: None. FINDINGS: LUNGS AND PLEURA: No new opacities, masses or pneumothorax. No pleural effusion. MEDIASTINUM AND HILAR STRUCTURES: No masses. Contour normal. HEART AND VASCULAR STRUCTURES: Heart normal in size. Normal vasculature. BONES: No acute findings. HARDWARE: None in the chest. OTHER: No other significant finding. IMPRESSION: NO ACUTE RADIOGRAPHIC FINDING IN THE CHEST. NO SIGNIFICANT CHANGE FROM YESTERDAY. TECHNICAL DOCUMENTATION: JOB ID: [id number]
[2017-03-24 23:33] LABS: ANION GAP 8 (5-19); BLOOD UREA NITROGEN 22 mg/dL (7-20); CALCIUM 9.3 mg/dL (8.4-10.2); CARBON DIOXIDE 22 mmol/L (22-30); CHLORIDE 111 mmol/L (98-107); CREATININE RESULT 1.16 mg/dL (0.52-1.25); GLUCOSE 194 mg/dL (75-110); POTASSIUM 4.6 mmol/L (3.6-5.0); SODIUM 141.4 mmol/L (137-145)
[2017-03-24] MEDS ORDERED: FUROSEMIDE INJ/PF 40 MG/4 ML SDV IV ONE (23:47)
[2017-03-24] MEDS ORDERED: METOPROLOL TARTRATE 25 MG TABLET PO ONE (23:47)
--- NOTE | 2017-03-24 23:50 | ER Document Report ---
ED General - General Chief Complaint: Shortness Of Breath Stated Complaint: SHORTNESS OF BREATH Time Seen by Provider: 03/24/17 23:02 Notes: Patient is a 46-year-old male with a past medical history of CHF, morbid obesity , hypertension, chronic and medication noncompliance who presents for the fifth time in the last 4 weeks for complaints of shortness of breath and chronic peripheral edema. He admits that nothing is new or different about his symptoms today relative to being seen yesterday but he notes that his symptoms have not yet improved since he increase his Lasix per Dr. Cruz directions yesterday and decided he would return. He denies any chest pain, pleuritic pain , hemoptysis, or increase in his lower extremity swelling. Nothing improves or worsens his symptoms. Patient does state he is always been taking his medications as directed although he does now admit to me that he has not a primary care physician for several months TRAVEL OUTSIDE OF THE [place] IN LAST 30 DAYS: No - Related Data Allergies/Adverse Reactions: No Known Allergies Allergy (Verified 03/24/17 22:53) Past Medical History - General Information source: Patient - Social History Smoking Status: Never Smoker Chew tobacco use (# tins/day): No Frequency of alcohol use: None Drug Abuse: None Lives with: Alone Family History: Reviewed & Not Pertinent, CAD, DM, Hypertension - Past Medical History Cardiac Medical History: Reports: Hx Congestive Heart Failure, Hx Hypertension, Hx Peripheral Vascular Disease Pulmonary Medical History: Reports: Hx Bronchitis, Hx Pneumonia Endocrine Medical History: Reports: Hx Diabetes Mellitus Type 2 Renal/ Medical History: Denies: Hx Peritoneal Dialysis Psychiatric Medical History: Reports: Hx Depression Past Surgical History: Reports: Hx Orthopedic Surgery - Right 5th toe amputation , Other - Removal of "tumor" from the right thigh, removal of multiple boils - Immunizations Hx Diphtheria, Pertussis, Tetanus Vaccination: Yes Hx Pneumococcal Vaccination: 10/05/13 Review of Systems - Review of Systems Notes: Constitutional: Negative for fever. HENT: Negative for sore throat. Eyes: Negative for visual changes. Cardiovascular: Negative for chest pain. Respiratory: Positive for shortness of breath. Gastrointestinal: Negative for abdominal pain, vomiting or diarrhea. Genitourinary: Negative for dysuria. Musculoskeletal: Negative for back pain. Skin: Positive for bilateral lower extremity swelling Neurological: Negative for headaches, weakness or numbness. 10 point ROS negative except as marked above and in HPI. Physical Exam - Vital signs Vitals: Resp BP Pulse Ox 24 H 149/110 H 100 03/24/17 23:01 03/24/17 23:01 03/24/17 23:01 Interpretation: Hypertensive Notes: PHYSICAL EXAMINATION: GENERAL: Well-appearing, well-nourished and in no acute distress. HEAD: Atraumatic, normocephalic. EYES: Pupils equal round and reactive to light, extraocular movements intact, sclera anicteric, conjunctiva are normal. ENT: nares patent, oropharynx clear without exudates. Moist mucous membranes. NECK: Normal range of motion, supple without lymphadenopathy LUNGS: Breath sounds clear to auscultation bilaterally and equal. No wheezes rales or rhonchi. HEART: Regular tachycardia without murmurs ABDOMEN: Soft, nontender, normoactive bowel sounds. No guarding, no rebound. No masses appreciated. EXTREMITIES: Normal range of motion, 4+ pitting edema that is equal and symmetric in the bilateral lower extremities NEUROLOGICAL: No focal neurological deficits. Moves all extremities spontaneously and on command. PSYCH: Flat affect, appropriate and contact SKIN: Warm, Dry, normal turgor, no rashes or lesions noted. Course - Re-evaluation Re-evalutation: 03/24/17 23:51 Patient presents for the fifth time in February for shortness of breath and bilateral lower extremity edema. He was just seen last night for similar presentation. Evaluation patient is tachycardic to 130 bpm. His typical rates rest between 100-120 bpm. I did review with the patient that his tachycardia remains persistent and he notes that in the past he was on beta-blockers due to uncontrolled sinus tachycardia but again due to loss of follow-up he does not currently have this available to him at home. Patient does admit to me today that he actually has not been following the primary care doctor or reel system operator of any kind for at least the past 4-[address] he is able to get his medications as hears in the emergency department. His chest x-ray today again does not show any significant vascular congestion or pulmonary edema. He does have 4+ pitting edema in the bilateral lower extremities which is unchanged from prior assessments. Labs including a troponin are likewise unremarkable. I do not suspect clinically significant acute CHF exacerbation given his chest x-ray and clinical history. Will give a dose of Lasix here as well as a dose of oral metoprolol and reassess. 03/25/17 02:04 Patient's heart rate has returned to more normal level at 115 currently after a total of 25 mg of oral metoprolol. Compression stockings have been placed on the lower extremities. Patient continues to be without chest pain. Ambulating around the department without difficulty. Troponin is normal. Review of his weight shows that he has not had any weight gain over the past 1 month to suggest a CHF exacerbation or excessive volume overload. Again, his chest x- ray does not demonstrate any findings to suggest a acute CHF exacerbation. I do not suspect an acute pulmonary embolus. Patient did have a CTA of the chest less than a month ago for this concern and it was normal at that time. I do not believe continuously repeating CTA of the chest due to his tachycardia and shortness of breath would be appropriate. Moreover, patient denies any chest pain or pleuritic pain of any kind. On review of patient's prior records, he does consistently have regular tachycardia and I will start metoprolol and recommend that he continues Lasix as directed. I have also encouraged him to please follow-up with cardiology given his history of CHF. - Vital Signs Vital signs: Temp Pulse Resp BP Pulse Ox 100.4 F 22 H 144/101 H 99 03/24/17 23:04 03/25/17 01:31 03/25/17 01:31 03/25/17 01:31 - Laboratory Result Diagrams: 03/24/17 23:00 Laboratory results interpreted by me: 03/24/17 23:00 Chloride 111 H BUN 22 H Glucose 194 H - Diagnostic Test Radiology reviewed: Image reviewed, Reports reviewed Radiology results interpreted by me: 03/25/17 02:46 Chest x-ray: No acute infiltrate or pneumothorax - EKG Interpretation by Me Additional EKG results interpreted by me: 03/25/17 02:48 Sinus tachycardia. Rate 133. No ST elevations or depressions. QTC is 369. Discharge - Discharge Clinical Impression: Peripheral edema, Sinus tachycardia CHF (congestive heart failure) Qualifiers: Congestive heart failure type: combined Congestive heart failure chronicity: chronic Qualified Code(s): I50.42 - Chronic combined systolic (congestive) and diastolic (congestive) heart failure Condition: Stable Disposition: HOME, SELF-CARE Additional Instructions: You need to start taking metoprolol 25 mg twice daily to control your heart rate. Continue take the Lasix as directed. You do need to follow-up with both cardiology and your primary care doctor as you have chronic medical problems and these need to be managed. Please return if you develop chest pain, worsening shortness of breath, pass out, or have any other symptoms that are worrisome to you. Prescriptions: Metoprolol Tartrate [Lopressor 25 mg Tablet] 25 mg PO BID #60 tab
--- NOTE | 2017-03-25 00:11 | EKG REPORT ---
SEVERITY:- ABNORMAL ECG - SINUS TACHYCARDIA PROBABLE LEFT ATRIAL ABNORMALITY NONSPECIFIC T ABNORMALITIES, LATERAL LEADS : Confirmed by: Micheal Angeles 25-Mar-2017 00:11:28
[2017-03-25] MEDS ORDERED: METOPROLOL TARTRATE 25 MG TABLET PO ONE (01:08)
[2017-03-25] MEDS ORDERED: ACETAMINOPHEN 325 MG TABLET PO ONE (01:39)
[2017-03-25 02:46] VITALS: BP 114/79
== END 2017-03-25 02:45 | disposition home or self-care (01) ==
LOC: ER 22:48
DX: I11.0 Hypertensive heart disease with heart failure (principal); I50.42 Chronic combined systolic (congestive) and diastolic (congestive) heart failure; E11.9 Type 2 diabetes mellitus without complications; R00.0 Tachycardia, unspecified; R06.02 Shortness of breath; R60.0 Localized edema
CPT/HCPCS: 93005; 99285; 96374; 36415; 80048; 84484; 71010; 93010; J1940

== ENCOUNTER 2017-04-06 05:55 | Emergency (ER) | payer MEDICAID ==
--- NOTE | 2017-04-06 07:04 | ER Document Report ---
ED Respiratory Problem - General Mode of Arrival: Ambulatory Information source: Patient TRAVEL OUTSIDE OF THE [place] IN LAST 30 DAYS: No <MARTHA LEVIN - Last Filed: 04/06/17 07:08> <SUKI AHN - Last Filed: 04/06/17 11:03> - General Chief Complaint: Breathing Difficulty Stated Complaint: SHORTNESS OF BREATH Time Seen by Provider: 04/06/17 06:51 Notes: Patient is a 46 year old male that presents to the emergency department today with complaints of shortness of breath. Patient has been seen 5 times over 5 weeks in this ED for similar complaints. Patient states that his shortness of breath is worsened with lying down. Patient states he has had nausea, vomiting , and diarrhea for 5 months. Patient states he takes 60 mg of lasix in the morning and 40 mg of lasix in the evenings. Patient is known to be non- complaint with medications. Patient was seen yesterday by his PCP for these complaints and was referred to a outside cutter and grinder dresser. 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 He was diagnosed with congestive heart failure in the last few months. He is supposed to be taking Lasix 60 in the morning 40 at night. He also complains of nausea vomiting diarrhea for months, yellow productive cough for several weeks. His room air pulse ox is 96% sitting up. He does have significant edema to his lower extremities including pitting edema to the thighs. He has been to the emergency room here about 5 times in the last 5 weeks. He reports that his shortness of breath and lower extremity swelling has been getting progressively worse for the last month or more. On 03/08/2017 he was noted to have a total CK of 6272, however could not find where this was addressed in the visit. Today his CK is 1549. His BMP on 03/08/2017 was 7240, today it is 4150. He did have a echocardiogram done on 11/18/2016 that showed an EF of 45-50%, and mildly reduced left ventricular systolic function. There was borderline concentric left ventricular hypertrophy. The serum protein and albumin are normal. There has been suggestion in previous visits of noncompliance issues. He was given 80 mg of Lasix IV here this morning and has urinated about 1 L of concentrated urine. There is also his unexplained rhabdomyolysis. There is also large protein in the urine, and this has been present since October 2016. I am concerned about the anasarca with the patient taking Lasix, and having normal serum protein and albumin. I think he should probably have a repeat echocardiogram, as there may have been significant deterioration in his LV function since the one done in October of this year. (SUKI AHN) - Related Data Allergies/Adverse Reactions: No Known Allergies Allergy (Verified 03/24/17 22:53) Past Medical History - General Information source: Patient, [facility] Records - Social History Smoking Status: Never Smoker Cigarette use (# per day): No Frequency of alcohol use: None Drug Abuse: None Lives with: Family Family History: Reviewed & Not Pertinent, CAD, DM, Hypertension Patient has suicidal ideation: No Patient has homicidal ideation: No - Past Medical History Cardiac Medical History: Reports: Hx Congestive Heart Failure, Hx Hypertension, Hx Peripheral Vascular Disease Pulmonary Medical History: Reports: Hx Bronchitis, Hx Pneumonia Endocrine Medical History: Reports: Hx Diabetes Mellitus Type 2 Psychiatric Medical History: Reports: Hx Depression Past Surgical History: Reports: Hx Orthopedic Surgery - dRight 5th toe amputation, Other - Removal of "tumor" from the right thigh, removal of multiple boils - Immunizations Hx Diphtheria, Pertussis, Tetanus Vaccination: Yes Hx Pneumococcal Vaccination: 10/05/13 <MARTHA LEVIN - Last Filed: 04/06/17 07:08> Review of Systems - Review of Systems Constitutional: No symptoms reported EENT: No symptoms reported Cardiovascular: No symptoms reported Respiratory: See HPI, Cough, Short of breath Gastrointestinal: See HPI, Diarrhea, Nausea, Vomiting Genitourinary: No symptoms reported Male Genitourinary: No symptoms reported Musculoskeletal: See HPI, Leg swelling Skin: No symptoms reported Hematologic/Lymphatic: No symptoms reported Neurological/Psychological: No symptoms reported -: Yes All other systems reviewed and negative <MARTHA LEVIN - Last Filed: 04/06/17 07:08> Physical Exam <MARTHA LEVIN - Last Filed: 04/06/17 07:08> <SUKI AHN - Last Filed: 04/06/17 11:03> - Vital signs Vitals: Pulse Ox 100 04/06/17 05:58 - Notes Notes: Physical Exam: General: Alert, appears well. HEENT: Normocephalic. Atraumatic. PERRL. Extraocular movements intact. Oropharynx clear. Neck: Supple. Non-tender. Respiratory: No respiratory distress. Clear and equal breath sounds bilaterally. 98% on room air when sitting up in room. Cardiovascular: Tachycardic, regular rhythm. Abdominal: Normal Inspection. Non-tender. No distension. Normal Bowel Sounds. Back: Non-tender. No deformity or step off. Extremities: Moves all four extremities. Upper extremities: Normal inspection. Normal ROM. Lower extremities: Pitting edema up to the thighs bilaterally. Post op boot on right foot. Normal ROM. Neurological: Normal cognition. AAOx4. Normal speech. Psychological: Normal affect. Normal Mood. Skin: Warm. Dry. Normal color. (MARTHA LEVIN) Course - Laboratory Result Diagrams: 04/06/17 06:45 04/06/17 06:45 <SUKI AHN - Last Filed: 04/06/17 11:03> - Vital Signs Vital signs: Temp Pulse Resp BP Pulse Ox 98.5 F 18 128/92 H 98 04/06/17 06:00 04/06/17 10:04 04/06/17 10:04 04/06/17 10:04 - Laboratory Laboratory results interpreted by me: 04/06/17 04/06/17 04/06/17 06:45 06:45 06:45 RBC 3.78 L Hgb 10.0 L Hct 31.2 L MCH 26.4 L RDW 16.3 H Potassium 5.2 H Chloride 108 H BUN 36 H Creatinine 1.38 H Est GFR (Non-Af Amer) 56 L Glucose 153 H Hemoglobin A1c % Creatine Kinase 1549 H CK-MB (CK-2) 6.29 H NT-Pro-B Natriuret Pep 4150 H Urine Protein Urine Blood 04/06/17 04/06/17 06:45 07:56 RBC Hgb Hct MCH RDW Potassium Chloride BUN Creatinine Est GFR (Non-Af Amer) Glucose Hemoglobin A1c % 7.1 H Creatine Kinase CK-MB (CK-2) NT-Pro-B Natriuret Pep Urine Protein >=500 H Urine Blood MODERATE H Discharge <MARTHA LEVIN - Last Filed: 04/06/17 07:08> <SUKI AHN - Last Filed: 04/06/17 11:03> - Discharge Clinical Impression: Pulmonary vascular congestion, Anasarca Proteinuria Qualifiers: Proteinuria type: unspecified Qualified Code(s): R80.9 - Proteinuria, unspecified Rhabdomyolysis Qualifiers: Rhabdomyolysis type: non-traumatic Qualified Code(s): M62.82 - Rhabdomyolysis Condition: Stable Disposition: HOME, SELF-CARE Additional Instructions: Your chest x-ray shows a buildup of some fluid in your lungs which is probably the reason for your shortness of breath. You have considerable protein in your urine and this is been going on for several months. You probably need to repeat your echocardiogram, follow-up with a urologist and a kidney specialist. Call Dr. Angeles to schedule an appointment to be seen from the cardiology standpoint. He is aware of your visit to the emergency room today and the findings. Follow-up with Dr. Ennis tomorrow to discuss the rhabdomyolysis, proteinuria, and increasing edema in your legs. Ask about a referral to a local crm manager. Be sure not to miss any doses of your medications. RETURN TO THE EMERGENCY ROOM IF ANY NEW OR WORSENING SYMPTOMS. Referrals: NIYA ENNIS DO [NO LOCAL MD] - Follow up tomorrow MONI ANGELES MD [ACTIVE STAFF] - Follow up in 3-5 days (Call the office for an appointment.) Scribe Attestation: 04/06/17 10:55 I personally performed the services described in the documentation, reviewed and edited the documentation which was dictated to the scribe in my presence, and it accurately records my words and actions. (SUKI AHN) Scribe Documentation - Scribe Written by Ludmila:: Ludmila Whitehead, 04/06/2017 0714 acting as scribe for :: Lynda <MARTHA LEVIN - Last Filed: 04/06/17 07:08>
[2017-04-06] MEDS ORDERED: FUROSEMIDE INJ/PF 100 MG/10 ML SDV IV ONE (07:05)
--- NOTE | 2017-04-06 07:32 | RADIOLOGY REPORT (SQ) ---
EXAM DESCRIPTION: CHEST PA/LAT COMPLETED DATE/TIME: 04/06/2017 7:22 am REASON FOR STUDY: SOB COMPARISON: 03/23/2017. EXAM PARAMETERS: NUMBER OF VIEWS: two views TECHNIQUE: Digital Frontal and Lateral radiographic views of the chest acquired. RADIATION DOSE: NA LIMITATIONS: none FINDINGS: LUNGS AND PLEURA: Moderate lung volumes. Pulmonary vascular congestion MEDIASTINUM AND HILAR STRUCTURES: No masses or contour abnormalities. HEART AND VASCULAR STRUCTURES: Borderline cardiac silhouette size. BONES: No acute findings. HARDWARE: None in the chest. OTHER: No other significant finding. IMPRESSION: Moderate pulmonary vascular congestion with moderate lung volume ; cannot exclude mild c entral pulmonary edema. TECHNICAL DOCUMENTATION: JOB ID: [id number] [employer]- All Rights Reserved
[2017-04-06 07:59] LABS: ABSOLUTE BASOPHILS # (AUTO) 0.1 10^3/uL (0.0-0.2); ABSOLUTE EOSINOPHILS # (AUTO) 0.1 10^3/uL (0.0-0.6); ABSOLUTE LYMPHOCYTES (AUTO) 1.1 10^3/uL (0.5-4.7); ABSOLUTE MONOCYTES (AUTO) 0.7 10^3/uL (0.1-1.4); ABSOLUTE NEUT (AUTO) 5.7 10^3/uL (1.7-8.2); BASOPHILS % (AUTO) 1.3 % (0-2); EOSINOPHILS % (AUTO) 1.5 % (0-6); HEMATOCRIT 31.2 % (37.9-51.0); HGB HCT DIFFERENCE -1.2; LYMPHOCYTES % (AUTO) 14.1 % (13-45); MEAN CORPUSCULAR HEMOGLOBIN 26.4 pg (27.0-33.4); MEAN CORPUSCULAR VOLUME 83 fl (80-97); MONOCYTES % (AUTO) 8.8 % (3-13); RED BLOOD COUNT 3.78 10^6/uL (4.35-5.55); RED CELL DISTRIBUTION WIDTH 16.3 % (11.5-14.0); SEGMENTED NEUTROPHILS % (AUTO) 74.3 % (42-78); WHITE BLOOD COUNT 7.6 10^3/uL (4.0-10.5)
--- NOTE | 2017-04-06 08:05 | EKG REPORT ---
SEVERITY:- BORDERLINE ECG - SINUS TACHYCARDIA PROBABLE LEFT ATRIAL ABNORMALITY BORDERLINE T ABNORMALITIES, ANT-LAT LEADS : Confirmed by: Carl Epps MD 06-Apr-2017 08:04:39
[2017-04-06 08:15] LABS: ALANINE AMINOTRANSFERASE 46 U/L (21-72); ALBUMIN 3.6 g/dL (3.5-5.0); ALKALINE PHOSPHATASE 81 U/L (38-126); ANION GAP 10 (5-19); ASPARTATE AMINO TRANSFERASE 51 U/L (17-59); BILIRUBIN,DIRECT 0.4 mg/dL (0.0-0.4); BILIRUBIN,TOTAL 0.9 mg/dL (0.2-1.3); BLOOD UREA NITROGEN 36 mg/dL (7-20); CALCIUM 9.2 mg/dL (8.4-10.2); CARBON DIOXIDE 26 mmol/L (22-30); CHLORIDE 108 mmol/L (98-107); CREATINE KINASE 1549 U/L (55-170); CREATININE RESULT 1.38 mg/dL (0.52-1.25); GLUCOSE 153 mg/dL (75-110); POTASSIUM 5.2 mmol/L (3.6-5.0); TOTAL PROTEIN 7.1 g/dL (6.3-8.2)
[2017-04-06 08:20] LABS: APPEARANCE,URINE CLEAR; BILIRUBIN,URINE NEGATIVE (NEGATIVE); GLUCOSE, URINE NEGATIVE (NEGATIVE); KETONES,URINE NEGATIVE (NEGATIVE); LEUKOCYTE ESTERASE,URINE NEGATIVE (NEGATIVE); NITRITE,URINE NEGATIVE (NEGATIVE); PROTEIN,URINE >=500 mg/dL (NEGATIVE); URINE SPECIFIC GRAVITY 1.017; UROBILINOGEN,URINE NEGATIVE mg/dL (<2.0)
[2017-04-06 08:26] LABS: CREATINE KINASE MB 6.29 ng/mL (<4.55); TROPONIN I 0.02 ng/mL
[2017-04-06 11:19] VITALS: BP 139/98
== END 2017-04-06 11:19 | disposition home or self-care (01) ==
LOC: ER 05:55
DX: I11.0 Hypertensive heart disease with heart failure (principal); I50.9 Heart failure, unspecified; Z79.899 Other long term (current) drug therapy; M62.82 Rhabdomyolysis; R80.9 Proteinuria, unspecified; R60.1 Generalized edema; R06.02 Shortness of breath; R07.89 Other chest pain; R11.2 Nausea with vomiting, unspecified; R19.7 Diarrhea, unspecified; R05 Cough; E11.51 Type 2 diabetes mellitus with diabetic peripheral angiopathy without gangrene; R00.0 Tachycardia, unspecified
CPT/HCPCS: 93005; 99285; 96374; 36415; 82553; 82550; 83735; 85025; 80053; 81001; 84484; 83036; 83880; 71020; 93010; J1940

== ENCOUNTER → 2017-06-08 | Outpatient (CLI) | payer MEDICAID ==
[2017-06-08 15:42] LABS: ALANINE AMINOTRANSFERASE 26 U/L (21-72); ALBUMIN 3.9 g/dL (3.5-5.0); ALKALINE PHOSPHATASE 60 U/L (38-126); ANION GAP 11 (5-19); ASPARTATE AMINO TRANSFERASE 20 U/L (17-59); BILIRUBIN,DIRECT 0.1 mg/dL (0.0-0.4); BILIRUBIN,TOTAL 0.3 mg/dL (0.2-1.3); BLOOD UREA NITROGEN 27 mg/dL (7-20); CALCIUM 9.1 mg/dL (8.4-10.2); CARBON DIOXIDE 22 mmol/L (22-30); CHLORIDE 113 mmol/L (98-107); CREATININE RESULT 1.24 mg/dL (0.52-1.25); GLUCOSE 93 mg/dL (75-110); IRON 79.1 ug/dL (49-181); POTASSIUM 5.3 mmol/L (3.6-5.0); SODIUM 146.2 mmol/L (137-145); TOTAL PROTEIN 7.4 g/dL (6.3-8.2)
[2017-06-08 15:49] LABS: ABSOLUTE BASOPHILS # (AUTO) 0.1 10^3/uL (0.0-0.2); ABSOLUTE EOSINOPHILS # (AUTO) 0.1 10^3/uL (0.0-0.6); ABSOLUTE LYMPHOCYTES (AUTO) 1.4 10^3/uL (0.5-4.7); ABSOLUTE MONOCYTES (AUTO) 0.6 10^3/uL (0.1-1.4); ABSOLUTE NEUT (AUTO) 3.3 10^3/uL (1.7-8.2); BASOPHILS % (AUTO) 2.1 % (0-2); HEMATOCRIT 35.2 % (37.9-51.0); HEMOGLOBIN 11.7 g/dL (13.5-17.0); HGB HCT DIFFERENCE -0.1; LYMPHOCYTES % (AUTO) 25.5 % (13-45); MEAN CORPUSCULAR HEMOGLOBIN 26.9 pg (27.0-33.4); MEAN CORPUSCULAR HGB CONC 33.3 g/dL (32.0-36.0); MEAN CORPUSCULAR VOLUME 81 fl (80-97); MONOCYTES % (AUTO) 10.4 % (3-13); RED BLOOD COUNT 4.35 10^6/uL (4.35-5.55); RED CELL DISTRIBUTION WIDTH 18.6 % (11.5-14.0); WHITE BLOOD COUNT 5.5 10^3/uL (4.0-10.5)
== END ==
LOC: OD 14:44
PROVIDERS: ATTEND Physician Assistant Medical
DX: D50.8 Other iron deficiency anemias (principal); R06.02 Shortness of breath; I42.8 Other cardiomyopathies; R07.89 Other chest pain
CPT/HCPCS: 36415; 80053; 83540; 83880; 84443; 85025

== ENCOUNTER → 2017-06-13 | Outpatient (CLI) | payer MEDICAID | LOC: OD 13:20 | PROVIDERS: ATTEND Physician Assistant Medical | DX: E87.5 Hyperkalemia (principal); R79.89 Other specified abnormal findings of blood chemistry; R53.83 Other fatigue; R06.02 Shortness of breath | CPT/HCPCS: 36415; 83880 ==

== ENCOUNTER → 2017-07-11 | Outpatient (CLI) | payer MEDICAID ==
--- NOTE | 2017-07-11 15:18 | RADIOLOGY REPORT (SQ) ---
EXAM DESCRIPTION: U/S RETROPERITON (RENAL/AORTA) COMPLETED DATE/TIME: 07/11/2017 12:25 pm REASON FOR STUDY: N18.2 CHRONIC KIDNEY DISEASE, STAGE 2 (MILD) I50.9 HEART FAILURE, UNSPECIFI N18.2 CHRONIC KIDNEY DISEASE, STAGE 2 (MILD) R80.9 PROTEINURIA, UNSPECIFIED I50.9 HEART FAILURE, UNSPECI FIED COMPARISON: None. TECHNIQUE: Dynamic and static grayscale images acquired of the kidneys and bladder and recorded on P ACS. Additional selected color Doppler and spectral images recorded. LIMITATIONS: None. FINDINGS: RIGHT KIDNEY: Normal size. Normal echogenicity. No solid or suspicious masses. No h ydronephrosis. No calcifications. LEFT KIDNEY: Normal size. 3 cm interpolar cyst. No solid or suspicious masses. No hydronephros is. No calcifications. BLADDER: No masses. OTHER FINDINGS: No other significant finding. IMPRESSION: Left renal cyst. No hydronephrosis. TECHNICAL DOCUMENTATION: JOB ID: [id number] [employer]- All Rights Reserved
== END ==
LOC: RAD 11:30
PROVIDERS: ATTEND Internal Medicine Nephrology
DX: N18.2 Chronic kidney disease, stage 2 (mild) (principal); R80.9 Proteinuria, unspecified; I50.9 Heart failure, unspecified
CPT/HCPCS: 76770

== ENCOUNTER → 2017-07-14 | Outpatient (CLI) | payer MEDICAID ==
[2017-07-14 16:23] LABS: ABSOLUTE BASOPHILS # (AUTO) 0.1 10^3/uL (0.0-0.2); ABSOLUTE EOSINOPHILS # (AUTO) 0.1 10^3/uL (0.0-0.6); ABSOLUTE LYMPHOCYTES (AUTO) 1.4 10^3/uL (0.5-4.7); ABSOLUTE MONOCYTES (AUTO) 0.5 10^3/uL (0.1-1.4); BASOPHILS % (AUTO) 1.2 % (0-2); MEAN CORPUSCULAR HGB CONC 32.3 g/dL (32.0-36.0); MEAN CORPUSCULAR VOLUME 84 fl (80-97); MONOCYTES % (AUTO) 8.4 % (3-13); PLATELET COUNT 159 10^3/uL (150-450); RED BLOOD COUNT 3.71 10^6/uL (4.35-5.55); RED CELL DISTRIBUTION WIDTH 20.2 % (11.5-14.0); SEGMENTED NEUTROPHILS % (AUTO) 66.4 % (42-78); TOTAL CELLS COUNTED % (AUTO) 100 %
[2017-07-14 16:32] LABS: ALANINE AMINOTRANSFERASE 28 U/L (21-72); ALBUMIN 3.8 g/dL (3.5-5.0); ALKALINE PHOSPHATASE 54 U/L (38-126); ANION GAP 9 (5-19); APPEARANCE,URINE CLEAR; ASPARTATE AMINO TRANSFERASE 22 U/L (17-59); BILIRUBIN,DIRECT 0.2 mg/dL (0.0-0.4); BILIRUBIN,TOTAL 0.7 mg/dL (0.2-1.3); BILIRUBIN,URINE NEGATIVE (NEGATIVE); BLOOD UREA NITROGEN 35 mg/dL (7-20); CALCIUM 9.2 mg/dL (8.4-10.2); CARBON DIOXIDE 23 mmol/L (22-30); CHLORIDE 110 mmol/L (98-107); COLOR,URINE STRAW; GLUCOSE 122 mg/dL (75-110); GLUCOSE, URINE NEGATIVE (NEGATIVE); KETONES,URINE NEGATIVE (NEGATIVE); NITRITE,URINE NEGATIVE (NEGATIVE); POTASSIUM 4.3 mmol/L (3.6-5.0); PROTEIN,URINE >=500 mg/dL (NEGATIVE); SODIUM 141.6 mmol/L (137-145); TOTAL PROTEIN 6.9 g/dL (6.3-8.2); URINE SPECIFIC GRAVITY 1.016; UROBILINOGEN,URINE NEGATIVE mg/dL (<2.0)
[2017-07-14 16:33] LABS: ADD MANUAL MICROSCOPIC YES; BACTERIA,URINE TRACE /HPF; LEUKOCYTE ESTERASE,URINE NEGATIVE (NEGATIVE); RBC,URINE 0-1 /HPF; WBC,URINE 0-1 /HPF
== END ==
LOC: OD 14:46
PROVIDERS: ATTEND Internal Medicine Nephrology
DX: R80.9 Proteinuria, unspecified (principal); I50.9 Heart failure, unspecified; E11.9 Type 2 diabetes mellitus without complications; I10 Essential (primary) hypertension
CPT/HCPCS: 36415; 80053; 81001; 83735; 84443; 85025

== ENCOUNTER 2017-07-23 17:31 | Emergency (ER) | payer MEDICAID ==
[2017-07-23] MEDS ORDERED: MORPHINE SULFATE 10 MG/ML INJ IV ONE (17:52)
--- NOTE | 2017-07-23 17:55 | ER Document Report ---
ED Medical Screen (RME) - General Chief Complaint: Shortness Of Breath Stated Complaint: SHORTNESS OF BREATH,RIGHT SIDE PAIN Time Seen by Provider: 07/23/17 17:48 Mode of Arrival: Ambulatory Information source: Patient Notes: 46-year-old male extensive medical history presents with complaints of right- sided chest wall pain shortness of breath of 2 day duration. Patient denies any fevers or chills denies any cough. Patient notes it is difficult to breathe Patient has history of diabetes hypertension heart failure LifeVest I have greeted and performed a rapid initial assessment of this patient. A comprehensive ED assessment and evaluation of the patient, analysis of test results and completion of the medical decision making process will be conducted by additional ED providers. PHYSICAL EXAMINATION: GENERAL: Well-appearing, well-nourished and in no acute distress. HEAD: Atraumatic, normocephalic. EYES: Pupils equal round extraocular movements intact, conjunctiva are normal. ENT: Nares patent NECK: Normal range of motion LUNGS: No respiratory distress Musculoskeletal: right foot is postop shoe NEUROLOGICAL: Normal speech, normal gait. PSYCH: Normal mood, normal affect. SKIN: Warm, Dry, normal turgor, no rashes or lesions noted. TRAVEL OUTSIDE OF THE [place] IN LAST 30 DAYS: No - Related Data Allergies/Adverse Reactions: No Known Allergies Allergy (Verified 07/23/17 17:32) Past Medical History - Past Medical History Cardiac Medical History: Reports: Hx Congestive Heart Failure, Hx Hypertension, Hx Peripheral Vascular Disease Denies: Hx Coronary Artery Disease, Hx Heart Attack Pulmonary Medical History: Reports: Hx Bronchitis, Hx Pneumonia Denies: Hx Asthma, Hx COPD Neurological Medical History: Denies: Hx Cerebrovascular Accident, Hx Seizures Endocrine Medical History: Reports: Hx Diabetes Mellitus Type 2 Renal/ Medical History: Denies: Hx Peritoneal Dialysis Musculoskeltal Medical History: Denies Hx Arthritis Psychiatric Medical History: Reports: Hx Depression Past Surgical History: Reports: Hx Orthopedic Surgery - dRight 5th toe amputation, Other - Removal of "tumor" from the right thigh, removal of multiple boils - Immunizations Hx Diphtheria, Pertussis, Tetanus Vaccination: Yes Influenza Administration Date for 03/2017 - 08/2017 Season: 03/26/17 Physical Exam - Vital signs Vitals: Temp Pulse Resp BP Pulse Ox 98.8 F 94 20 113/73 96 07/23/17 17:36 07/23/17 17:36 07/23/17 17:36 07/23/17 17:36 07/23/17 17:36 Course - Vital Signs Vital signs: Temp Pulse Resp BP Pulse Ox 98.8 F 94 20 113/73 96 07/23/17 17:36 07/23/17 17:36 07/23/17 17:36 07/23/17 17:36 07/23/17 17:36
[2017-07-23 18:43] LABS: ABSOLUTE BASOPHILS # (AUTO) 0.1 10^3/uL (0.0-0.2); ABSOLUTE EOSINOPHILS # (AUTO) 0.1 10^3/uL (0.0-0.6); ABSOLUTE LYMPHOCYTES (AUTO) 1.2 10^3/uL (0.5-4.7); ABSOLUTE MONOCYTES (AUTO) 0.6 10^3/uL (0.1-1.4); ABSOLUTE NEUT (AUTO) 4.9 10^3/uL (1.7-8.2); BASOPHILS % (AUTO) 0.8 % (0-2); EOSINOPHILS % (AUTO) 1.1 % (0-6); HEMATOCRIT 33.3 % (37.9-51.0); HEMOGLOBIN 10.9 g/dL (13.5-17.0); LYMPHOCYTES % (AUTO) 17.1 % (13-45); MEAN CORPUSCULAR HEMOGLOBIN 27.6 pg (27.0-33.4); MEAN CORPUSCULAR HGB CONC 32.8 g/dL (32.0-36.0); MEAN CORPUSCULAR VOLUME 84 fl (80-97); MONOCYTES % (AUTO) 8.7 % (3-13); PLATELET COUNT 167 10^3/uL (150-450); RED BLOOD COUNT 3.95 10^6/uL (4.35-5.55); SEGMENTED NEUTROPHILS % (AUTO) 72.3 % (42-78); TOTAL CELLS COUNTED % (AUTO) 100 %; WHITE BLOOD COUNT 6.8 10^3/uL (4.0-10.5)
[2017-07-23 19:03] LABS: ALANINE AMINOTRANSFERASE 25 U/L (21-72); ALBUMIN 4.1 g/dL (3.5-5.0); ALKALINE PHOSPHATASE 65 U/L (38-126); ANION GAP 12 (5-19); ASPARTATE AMINO TRANSFERASE 23 U/L (17-59); BILIRUBIN,DIRECT 0.3 mg/dL (0.0-0.4); BILIRUBIN,TOTAL 0.5 mg/dL (0.2-1.3); BLOOD UREA NITROGEN 36 mg/dL (7-20); CALCIUM 8.8 mg/dL (8.4-10.2); CARBON DIOXIDE 29 mmol/L (22-30); CHLORIDE 103 mmol/L (98-107); GLUCOSE 134 mg/dL (75-110); POTASSIUM 4.6 mmol/L (3.6-5.0); SODIUM 144.4 mmol/L (137-145); TOTAL PROTEIN 7.4 g/dL (6.3-8.2)
[2017-07-23 19:15] LABS: NT PRO BNP 4470 pg/mL (<125)
[2017-07-23 19:16] LABS: TROPONIN I < 0.012 ng/mL
--- NOTE | 2017-07-23 19:22 | RADIOLOGY REPORT (SQ) ---
EXAM DESCRIPTION: CHEST SINGLE VIEW COMPLETED DATE/TIME: 07/23/2017 7:04 pm REASON FOR STUDY: Shortness of breath. COMPARISON: Chest x-ray 04/06/2017. EXAM PARAMETERS: NUMBER OF VIEWS: One view. TECHNIQUE: Single frontal radiographic view of the chest acquired. RADIATION DOSE: NA LIMITATIONS: None. FINDINGS: LUNGS AND PLEURA: No consolidation, pneumothorax or pleural effusion. MEDIASTINUM AND HILAR STRUCTURES: No masses. Contour normal. HEART AND VASCULAR STRUCTURES: The heart is enlarged. There is mild central vascular congestion. BONES: No acute findings. HARDWARE: None in the chest. IMPRESSION: Cardiomegaly and mild central vascular congestion. TECHNICAL DOCUMENTATION: JOB ID: [id number] [place]-64 2010 [employer]- All Rights Reserved
[2017-07-23] MEDS ORDERED: FUROSEMIDE INJ/PF 40 MG/4 ML SDV IV ONE (19:58)
--- NOTE | 2017-07-23 19:58 | ER Document Report ---
ED General - General Chief Complaint: Shortness Of Breath Stated Complaint: SHORTNESS OF BREATH,RIGHT SIDE PAIN Time Seen by Provider: 07/23/17 17:48 Mode of Arrival: Ambulatory Notes: Patient is a 46-year-old male with a past medical history of CHF, EF less than 30% currently on a LifeVest, hypertension, hyperlipidemia who presents with concerns of 2 days of progressively worsening shortness of breath as well as right lower rib pain. Describes the pain as a dull, constant stabbing pain to the right lower rib. Worsened with inspiration and movement. Nothing improves the pain. Denies history of similar symptoms in the past. He has not seen a primary doctor regarding today's concerns. He denies any associated vomiting, diarrhea, fever, headache, neck pain or altered mental status. He denies any history of DVT or pulmonary embolus. No central chest pain. No radiation of the pain. TRAVEL OUTSIDE OF THE [place] IN LAST 30 DAYS: No - Related Data Allergies/Adverse Reactions: No Known Allergies Allergy (Verified 07/23/17 17:32) Past Medical History - General Information source: Patient - Social History Smoking Status: Never Smoker Chew tobacco use (# tins/day): No Frequency of alcohol use: None Drug Abuse: None Lives with: Alone Family History: Reviewed & Not Pertinent, CAD, DM, Hypertension Patient has suicidal ideation: No Patient has homicidal ideation: No - Past Medical History Cardiac Medical History: Reports: Hx Congestive Heart Failure, Hx Hypertension, Hx Peripheral Vascular Disease Denies: Hx Coronary Artery Disease, Hx Heart Attack Pulmonary Medical History: Reports: Hx Bronchitis, Hx Pneumonia Denies: Hx Asthma, Hx COPD Neurological Medical History: Denies: Hx Cerebrovascular Accident, Hx Seizures Endocrine Medical History: Reports: Hx Diabetes Mellitus Type 2 Renal/ Medical History: Denies: Hx Peritoneal Dialysis Musculoskeltal Medical History: Denies Hx Arthritis Psychiatric Medical History: Reports: Hx Depression Past Surgical History: Reports: Hx Orthopedic Surgery - dRight 5th toe amputation, Hx Testicular Surgery - abscess removal, Other - Removal of "tumor" from the right thigh, removal of multiple boils. Denies: Hx Cardiac Catheterization - Immunizations Hx Diphtheria, Pertussis, Tetanus Vaccination: Yes Hx Pneumococcal Vaccination: 10/05/13 Review of Systems - Review of Systems Notes: Constitutional: Negative for fever. HENT: Negative for sore throat. Eyes: Negative for visual changes. Cardiovascular: Positive for chest pain. Respiratory: Positive for shortness of breath. Gastrointestinal: Negative for abdominal pain, vomiting or diarrhea. Genitourinary: Negative for dysuria. Musculoskeletal: Negative for back pain. Skin: Negative for rash. Neurological: Negative for headaches, weakness or numbness. 10 point ROS negative except as marked above and in HPI. Physical Exam - Vital signs Vitals: Temp Pulse Resp BP Pulse Ox 98.8 F 94 20 113/73 96 07/23/17 17:36 07/23/17 17:36 07/23/17 17:36 07/23/17 17:36 07/23/17 17:36 Interpretation: Normal Notes: PHYSICAL EXAMINATION: GENERAL: Well-appearing, well-nourished and in no acute distress. HEAD: Atraumatic, normocephalic. EYES: Pupils equal round and reactive to light, extraocular movements intact, sclera anicteric, conjunctiva are normal. ENT: nares patent, oropharynx clear without exudates. Moist mucous membranes. NECK: Normal range of motion, supple without lymphadenopathy LUNGS: Breath sounds clear to auscultation bilaterally and equal. No wheezes rales or rhonchi. HEART: Regular rate and rhythm without murmurs ABDOMEN: Soft, nontender, normoactive bowel sounds. No guarding, no rebound. No masses appreciated. EXTREMITIES: Normal range of motion, 4+ pitting edema that is equal and symmetrical bilateral lower extremities, no cyanosis. NEUROLOGICAL: No focal neurological deficits. Moves all extremities spontaneously and on command. PSYCH: Normal mood, normal affect. SKIN: Warm, Dry, normal turgor, no rashes or lesions noted. Course - Re-evaluation Re-evalutation: 07/23/17 19:50 Patient presents with 2 days of right-sided lower rib pain as well as persistent shortness of breath. He notes that he is chronically short of breath but is been more so in the past 2 days. Patient has been seen in the emergency department repeatedly for these complaints, has a history of CHF with an EF of less than 30% and has a history of medication noncompliance. At time of assessment patient is saturating 100% on room air, appears in no acute distress without tachypnea or tachycardia. Although he does appear to have some pleuritic pain on the right side of his chest wall he is PERC criteria negative. However given the persistence of his pleuritic pain will proceed with a d-dimer assay to further assess. Chest x-ray does show vascular congestion and cardiomegaly but is otherwise unremarkable. Will give IV furosemide here in the emergency department as patient does have 4+ pitting edema that is equal and symmetric in the bilateral lower extremities. He also admits to some orthopnea but does not appear orthopnea, assessment. If d-dimer is negative, will plan for discharge home with recommendations to continue taking Lasix as directed. Chest x-ray does not suggest an acute pneumonia, his clinical history, EKG and troponin are not suggestive of an acute myocardial infarction or ACS event. I overall suspect likely etiology of his shortness of breath and pain is secondary to volume overload. 07/23/17 20:25 D-dimer is normal. Will not proceed with CT at this time of my overall clinical suspicion for an acute PE. Patient remained hemodynamic within normal limits. IV furosemide has been provided. At this time will discharge with return precautions and follow-up recommendations. Verbal discharge instructions given a the bedside and opportunity for questions given. Medication warnings reviewed. Patient is in agreement with this plan and has verbalized understanding of return precautions and the need for primary care follow-up in the next 24-72 hours. - Vital Signs Vital signs: Temp Pulse Resp BP Pulse Ox 98.8 F 94 18 119/84 95 07/23/17 17:36 07/23/17 17:36 07/23/17 20:01 07/23/17 20:00 07/23/17 20:01 - Laboratory Result Diagrams: 07/23/17 18:30 07/23/17 18:30 Laboratory results interpreted by me: 07/23/17 07/23/17 07/23/17 18:30 18:30 18:30 RBC 3.95 L Hgb 10.9 L Hct 33.3 L RDW 20.0 H BUN 36 H Creatinine 1.49 H Est GFR (Non-Af Amer) 51 L Glucose 134 H NT-Pro-B Natriuret Pep 4470 H - Diagnostic Test Radiology reviewed: Image reviewed, Reports reviewed Radiology results interpreted by me: 07/23/17 19:59 Chest x-ray: Cardiomegaly, vascular congestion but no overt pulmonary edema Discharge - Discharge Clinical Impression: Rib pain on right side, Shortness of breath, Pulmonary vascular congestion HTN (hypertension) Qualifiers: Hypertension type: essential hypertension Qualified Code(s): I10 - Essential ( primary) hypertension CHF (congestive heart failure) Qualifiers: Congestive heart failure type: unspecified Congestive heart failure chronicity : chronic Qualified Code(s): I50.9 - Heart failure, unspecified Condition: Good Disposition: HOME, SELF-CARE Additional Instructions: You have extra fluid in your lungs which is likely the cause of your shortness of breath and right-sided pain. Your chest x-ray other than showing a small amount of extra fluid in her lungs is otherwise normal. Your labs are reassuring. Please take an extra 20 mg of Lasix twice daily in addition to your normal dose for the next 5 days. After 5 days please return to your normal dosing. For your pain take Tylenol 1000 mg every 6 hours as needed. Apply topical Voltaren gel that has been prescribed to the affected area. You may also apply topical lidocaine patches which can be purchased over-the- counter. Prescriptions: Diclofenac Sodium [Voltaren] 100 gm TP TID PRN #100 gel..gram. PRN Reason: Furosemide [Lasix 20 mg Tablet] 20 mg PO BID #10 tablet
[2017-07-23] MEDS ORDERED: LIDOCAINE 5% (700 MG) TRANSDERMAL ADH..PATCH TP ONE (20:31)
[2017-07-23 20:47] VITALS: BP 119/84
== END 2017-07-23 21:02 | disposition home or self-care (01) ==
LOC: ER 17:31
DX: R07.81 Pleurodynia (principal); R06.02 Shortness of breath; R09.89 Other specified symptoms and signs involving the circulatory and respiratory systems; I10 Essential (primary) hypertension; I50.9 Heart failure, unspecified; E11.9 Type 2 diabetes mellitus without complications
CPT/HCPCS: 99285; 96374; 96375; 36415; 85025; 80053; 84484; 85379; 83880; 71045; J1940; J2270; J3490

== ENCOUNTER 2017-07-25 07:49 | Emergency (ER) | payer MEDICAID ==
--- NOTE | 2017-07-25 08:17 | ER Document Report ---
ED General - General Chief Complaint: Shortness Of Breath Stated Complaint: BREATHING PROBLEMS Time Seen by Provider: 07/25/17 08:13 Notes: 46-year-old male with end-stage heart failure EF of 30, LifeVest in place, seen here 2 days ago for shortness of breath and diuresed presents with worsening shortness of breath and syncope. He lost consciousness in the waiting room while waiting to be seen. I do not have much data about this event as it was not witnessed by any of the medical staff here. He was escorted to room and seen by me immediately upon arrival. His dyspnea precludes a history. TRAVEL OUTSIDE OF THE [place] IN LAST 30 DAYS: No - Related Data Allergies/Adverse Reactions: No Known Allergies Allergy (Verified 07/25/17 07:53) Past Medical History - Social History Smoking Status: Never Smoker Family History: Reviewed & Not Pertinent, CAD, DM, Hypertension - Past Medical History Cardiac Medical History: Reports: Hx Congestive Heart Failure, Hx Hypertension, Hx Peripheral Vascular Disease Denies: Hx Coronary Artery Disease, Hx Heart Attack Pulmonary Medical History: Reports: Hx Bronchitis, Hx Pneumonia Denies: Hx Asthma, Hx COPD Neurological Medical History: Denies: Hx Cerebrovascular Accident, Hx Seizures Endocrine Medical History: Reports: Hx Diabetes Mellitus Type 2 Renal/ Medical History: Denies: Hx Peritoneal Dialysis Musculoskeltal Medical History: Denies Hx Arthritis Psychiatric Medical History: Reports: Hx Depression Past Surgical History: Reports: Hx Orthopedic Surgery - dRight 5th toe amputation, Hx Testicular Surgery - abscess removal, Other - Removal of "tumor" from the right thigh, removal of multiple boils. Denies: Hx Cardiac Catheterization - Immunizations Hx Diphtheria, Pertussis, Tetanus Vaccination: Yes Hx Pneumococcal Vaccination: 10/05/13 Review of Systems - Review of Systems Notes: REVIEW OF SYSTEMS Unable to obtain secondary to acuity PHYSICAL EXAMINATION General: N mild to moderate respiratory distress, appears pale and confused Head: Atraumatic, normocephalic ENT: Mouth normal, oropharynx moist, no exudates or tonsillar enlargement Eyes: Conjunctiva normal, pupils equal, lids normal Neck: No JVD, supple, no guarding CVS: Normal rate, regular rhythm, no murmurs Resp: N tachypnea. Bilateral crackles. GI: Nondistended, soft, no tenderness to palpation, no rebound or guarding Ext: No deformities, severe symmetric 2+ leg edema, normal range of motion in upper and lower ext Back: No CVA or midline TTP Skin: No rash, warm Lymphatic: No lymphadeopathy noted Neuro: Slightly sleepyappearing. Face symmetric. GCS 15. Physical Exam - Vital signs Vitals: Temp Pulse Resp BP Pulse Ox 97.9 F 85 16 124/83 99 07/25/17 07:57 07/25/17 07:57 07/25/17 07:57 07/25/17 07:57 07/25/17 07:57 Course - Re-evaluation Re-evalutation: 07/25/17 08:16 This is an ill 46-year-old male with end-stage heart failure on a LifeVest presenting with syncope and shortness of breath. Clinically he is volume overloaded. Syncope could have been due to arrhythmia versus hypoxia on exertion. The LifeVest did not shock him. It does appear to be on and has battery- powered. Patient was brought to the room immediately. D stick, done to investigate altered mental status, showed a normal glucose. Monitor attached vitals have been obtained, will pursue workup including BNP troponin EKG. Patient is at high risk for DVT or other malignant arrhythmia we transferred [facility] for further care. - Vital Signs Vital signs: Temp Pulse Resp BP Pulse Ox 97.9 F 85 16 135/98 H 100 07/25/17 07:57 07/25/17 07:57 07/25/17 08:15 07/25/17 08:15 07/25/17 08:15 - Laboratory Result Diagrams: 07/25/17 08:19 07/25/17 08:19 Laboratory results interpreted by me: 07/25/17 07/25/17 07/25/17 08:12 08:19 08:19 RBC 4.02 L Hgb 11.0 L Hct 34.4 L RDW 19.3 H BUN 41 H Creatinine 1.42 H Est GFR (Non-Af Amer) 54 L Glucose 164 H POC Glucose 166 H NT-Pro-B Natriuret Pep 07/25/17 08:19 RBC Hgb Hct RDW BUN Creatinine Est GFR (Non-Af Amer) Glucose POC Glucose NT-Pro-B Natriuret Pep 4780 H Critical Care Note - Critical Care Note Total time excluding time spent on procedures (mins): 32 Comments: The above patient is critically ill. Not including procedures, but including direct re-evaluations, speaking with patient and/or consultants, interpreting results, and documenting, I spent the total amount of minute listed listed above on critical care time
[2017-07-25 08:38] LABS: ABSOLUTE BASOPHILS # (AUTO) 0.1 10^3/uL (0.0-0.2); ABSOLUTE EOSINOPHILS # (AUTO) 0.1 10^3/uL (0.0-0.6); ABSOLUTE LYMPHOCYTES (AUTO) 1.4 10^3/uL (0.5-4.7); ABSOLUTE MONOCYTES (AUTO) 0.5 10^3/uL (0.1-1.4); ABSOLUTE NEUT (AUTO) 4.1 10^3/uL (1.7-8.2); BASOPHILS % (AUTO) 0.9 % (0-2); EOSINOPHILS % (AUTO) 1.5 % (0-6); HEMATOCRIT 34.4 % (37.9-51.0); LYMPHOCYTES % (AUTO) 23.1 % (13-45); MEAN CORPUSCULAR HEMOGLOBIN 27.4 pg (27.0-33.4); MEAN CORPUSCULAR VOLUME 86 fl (80-97); MONOCYTES % (AUTO) 8.1 % (3-13); PLATELET COUNT 179 10^3/uL (150-450); RED BLOOD COUNT 4.02 10^6/uL (4.35-5.55); RED CELL DISTRIBUTION WIDTH 19.3 % (11.5-14.0); SEGMENTED NEUTROPHILS % (AUTO) 66.4 % (42-78); TOTAL CELLS COUNTED % (AUTO) 100 %; WHITE BLOOD COUNT 6.2 10^3/uL (4.0-10.5)
--- NOTE | 2017-07-25 08:46 | RADIOLOGY REPORT (SQ) ---
EXAM DESCRIPTION: CHEST SINGLE VIEW COMPLETED DATE/TIME: 07/25/2017 8:37 am REASON FOR STUDY: SOB COMPARISON: Chest film 07/23/2017, 04/06/2017 EXAM PARAMETERS: NUMBER OF VIEWS: One view. TECHNIQUE: Single frontal radiographic view of the chest acquired. RADIATION DOSE: NA LIMITATIONS: Artifact from a defibrillator vest over the chest FINDINGS: LUNGS AND PLEURA: No opacities, masses or pneumothorax. No pleural effusion. MEDIASTINUM AND HILAR STRUCTURES: No masses. Contour normal. HEART AND VASCULAR STRUCTURES: Mild cardiomegaly BONES: No acute findings. HARDWARE: None in the chest. OTHER: No other significant finding. IMPRESSION: NO ACUTE RADIOGRAPHIC FINDING IN THE CHEST. TECHNICAL DOCUMENTATION: JOB ID: [id number] [employer]- All Rights Reserved
[2017-07-25 09:01] LABS: ANION GAP 7 (5-19); BLOOD UREA NITROGEN 41 mg/dL (7-20); CALCIUM 9.2 mg/dL (8.4-10.2); CARBON DIOXIDE 29 mmol/L (22-30); CHLORIDE 107 mmol/L (98-107); GLUCOSE 164 mg/dL (75-110); POTASSIUM 4.9 mmol/L (3.6-5.0); SODIUM 142.8 mmol/L (137-145)
[2017-07-25 09:14] LABS: NT PRO BNP 4780 pg/mL (<125); TROPONIN I < 0.012 ng/mL
[2017-07-25] MEDS ORDERED: FUROSEMIDE INJ/PF 40 MG/4 ML SDV IV ONE (09:46)
--- NOTE | 2017-07-25 12:59 | EKG REPORT ---
SEVERITY:- ABNORMAL ECG - SINUS RHYTHM LEFT ATRIAL ABNORMALITY NONSPECIFIC T ABNORMALITIES, ANT-LAT LEADS : Confirmed by: Carl Epps MD 25-Jul-2017 12:58:45
[2017-07-25 15:35] VITALS: BP 137/100
== END 2017-07-25 15:42 | disposition short-term general hospital (02) ==
LOC: ER 07:49
DX: R55 Syncope and collapse (principal); I11.0 Hypertensive heart disease with heart failure; I50.84 End stage heart failure; R06.02 Shortness of breath; R41.82 Altered mental status, unspecified; E11.51 Type 2 diabetes mellitus with diabetic peripheral angiopathy without gangrene; Z95.811 Presence of heart assist device
CPT/HCPCS: 93005; 99291; 96374; 36415; 82962; 83735; 85025; 80048; 84484; 83880; 71045; 93010; J1940

== ENCOUNTER → 2017-08-31 | Outpatient (CLI) | payer MEDICAID ==
[2017-08-31 10:47] LABS: ABSOLUTE BASOPHILS # (AUTO) 0.1 10^3/uL (0.0-0.2); ABSOLUTE EOSINOPHILS # (AUTO) 0.1 10^3/uL (0.0-0.6); ABSOLUTE LYMPHOCYTES (AUTO) 1.4 10^3/uL (0.5-4.7); ABSOLUTE MONOCYTES (AUTO) 0.5 10^3/uL (0.1-1.4); BASOPHILS % (AUTO) 1.1 % (0-2); EOSINOPHILS % (AUTO) 1.8 % (0-6); HEMATOCRIT 40.4 % (37.9-51.0); LYMPHOCYTES % (AUTO) 22.9 % (13-45); MEAN CORPUSCULAR HEMOGLOBIN 27.8 pg (27.0-33.4); MEAN CORPUSCULAR HGB CONC 32.1 g/dL (32.0-36.0); MEAN CORPUSCULAR VOLUME 87 fl (80-97); MONOCYTES % (AUTO) 7.6 % (3-13); PLATELET COUNT 184 10^3/uL (150-450); RED BLOOD COUNT 4.67 10^6/uL (4.35-5.55); RED CELL DISTRIBUTION WIDTH 15.1 % (11.5-14.0); SEGMENTED NEUTROPHILS % (AUTO) 66.6 % (42-78); TOTAL CELLS COUNTED % (AUTO) 100 %
[2017-08-31 11:13] LABS: ALANINE AMINOTRANSFERASE 36 U/L (21-72); ALBUMIN 3.8 g/dL (3.5-5.0); ALKALINE PHOSPHATASE 60 U/L (38-126); ANION GAP 10 (5-19); ASPARTATE AMINO TRANSFERASE 26 U/L (17-59); BILIRUBIN,DIRECT 0.3 mg/dL (0.0-0.4); BILIRUBIN,TOTAL 0.4 mg/dL (0.2-1.3); BLOOD UREA NITROGEN 25 mg/dL (7-20); CARBON DIOXIDE 23 mmol/L (22-30); CHLORIDE 110 mmol/L (98-107); GLUCOSE 173 mg/dL (75-110); POTASSIUM 5.3 mmol/L (3.6-5.0); SODIUM 142.8 mmol/L (137-145); TOTAL PROTEIN 7.2 g/dL (6.3-8.2)
== END ==
LOC: OD 10:01
PROVIDERS: ATTEND Physician Assistant Medical
DX: R07.9 Chest pain, unspecified (principal); R06.02 Shortness of breath; E55.9 Vitamin D deficiency, unspecified; D50.8 Other iron deficiency anemias
CPT/HCPCS: 36415; 80053; 82306; 82728; 83880; 84443; 85025

== ENCOUNTER → 2018-01-05 | Outpatient (CLI) | payer MEDICAID ==
[2018-01-05 14:14] LABS: ALANINE AMINOTRANSFERASE 26 U/L (21-72); ALBUMIN 3.7 g/dL (3.5-5.0); ALKALINE PHOSPHATASE 52 U/L (38-126); ANION GAP 13 (5-19); ASPARTATE AMINO TRANSFERASE 23 U/L (17-59); BILIRUBIN,DIRECT 0.2 mg/dL (0.0-0.4); BILIRUBIN,TOTAL 0.4 mg/dL (0.2-1.3); BLOOD UREA NITROGEN 34 mg/dL (7-20); CALCIUM 9.5 mg/dL (8.4-10.2); CARBON DIOXIDE 20 mmol/L (22-30); CHLORIDE 110 mmol/L (98-107); GLUCOSE 190 mg/dL (75-110); POTASSIUM 5.4 mmol/L (3.6-5.0)
== END ==
LOC: OD 13:24
PROVIDERS: ATTEND Physician Assistant Medical
DX: E87.5 Hyperkalemia (principal)
CPT/HCPCS: 36415; 80053

== ENCOUNTER 2018-03-09 14:49 | Emergency (ER) | payer SELFPAY ==
[2018-03-09] MEDS ORDERED: ASPIRIN 81 MG TABLET, CHEWABLE PO ONE (15:07)
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
[2018-03-09 16:04] LABS: ABSOLUTE BASOPHILS # (AUTO) 0.1 10^3/uL (0.0-0.2); ABSOLUTE EOSINOPHILS # (AUTO) 0.1 10^3/uL (0.0-0.6); ABSOLUTE LYMPHOCYTES (AUTO) 1.7 10^3/uL (0.5-4.7); ABSOLUTE MONOCYTES (AUTO) 0.6 10^3/uL (0.1-1.4); ABSOLUTE NEUT (AUTO) 6.1 10^3/uL (1.7-8.2); EOSINOPHILS % (AUTO) 1.1 % (0-6); HEMATOCRIT 36.3 % (37.9-51.0); LYMPHOCYTES % (AUTO) 19.3 % (13-45); MEAN CORPUSCULAR HGB CONC 33.2 g/dL (32.0-36.0); MEAN CORPUSCULAR VOLUME 87 fl (80-97); MONOCYTES % (AUTO) 7.3 % (3-13); PLATELET COUNT 210 10^3/uL (150-450); RED BLOOD COUNT 4.15 10^6/uL (4.35-5.55); RED CELL DISTRIBUTION WIDTH 12.8 % (11.5-14.0); SEGMENTED NEUTROPHILS % (AUTO) 71.3 % (42-78); TOTAL CELLS COUNTED % (AUTO) 100 %; WHITE BLOOD COUNT 8.6 10^3/uL (4.0-10.5)
[2018-03-09 16:23] LABS: ALANINE AMINOTRANSFERASE 25 U/L (21-72); ALBUMIN 4.1 g/dL (3.5-5.0); ALKALINE PHOSPHATASE 76 U/L (38-126); ANION GAP 6 (5-19); ASPARTATE AMINO TRANSFERASE 35 U/L (17-59); BILIRUBIN,DIRECT 0.3 mg/dL (0.0-0.4); BILIRUBIN,TOTAL 0.4 mg/dL (0.2-1.3); BLOOD UREA NITROGEN 49 mg/dL (7-20); CALCIUM 9.3 mg/dL (8.4-10.2); CARBON DIOXIDE 28 mmol/L (22-30); CHLORIDE 101 mmol/L (98-107); CREATINE KINASE 548 U/L (55-170); GLUCOSE 229 mg/dL (75-110); POTASSIUM 5.2 mmol/L (3.6-5.0); SODIUM 135.4 mmol/L (137-145); TOTAL PROTEIN 8.3 g/dL (6.3-8.2)
[2018-03-09 16:35] LABS: CREATINE KINASE MB 2.33 ng/mL (<4.55); NT PRO BNP 64 pg/mL (<125)
[2018-03-09 16:36] LABS: TROPONIN I < 0.012 ng/mL
--- NOTE | 2018-03-09 17:43 | RADIOLOGY REPORT (SQ) ---
EXAM DESCRIPTION: CHEST SINGLE VIEW COMPLETED DATE/TIME: 03/09/2018 4:20 pm REASON FOR STUDY: SOB COMPARISON: 07/25/2017 EXAM PARAMETERS: NUMBER OF VIEWS: One view. TECHNIQUE: Single frontal radiographic view of the chest acquired. RADIATION DOSE: NA LIMITATIONS: None. FINDINGS: LUNGS AND PLEURA: No opacities, masses or pneumothorax. No pleural effusion. MEDIASTINUM AND HILAR STRUCTURES: No masses. Contour normal. HEART AND VASCULAR STRUCTURES: Heart normal in size. Normal vasculature. BONES: No acute findings. HARDWARE: None in the chest. OTHER: No other significant finding. IMPRESSION: NO ACUTE RADIOGRAPHIC FINDING IN THE CHEST. TECHNICAL DOCUMENTATION: JOB ID: [id number] [employer]- All Rights Reserved Reading location - IP/workstation name: [email or web address]
[2018-03-09] MEDS ORDERED: SODIUM POLYSTYRENE SULFONATE 15 GM/60 ML PO ONE (17:59)
[2018-03-09] MEDS ORDERED: NORMAL SALINE 250 ML IV ONE (17:59)
[2018-03-09 20:06] VITALS: BP 127/72
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
--- NOTE | 2018-03-09 23:54 | EKG REPORT ---
SEVERITY:- BORDERLINE ECG - SINUS RHYTHM PROBABLE LEFT ATRIAL ABNORMALITY ST ELEV, PROBABLE NORMAL EARLY REPOL PATTERN : Confirmed by: Micheal Angeles 09-Mar-2018 23:53:53
== END 2018-03-09 20:50 | disposition home or self-care (01) ==
LOC: ER 14:49
DX: R06.02 Shortness of breath (principal); E86.0 Dehydration; N17.9 Acute kidney failure, unspecified; E87.5 Hyperkalemia; I10 Essential (primary) hypertension; E11.51 Type 2 diabetes mellitus with diabetic peripheral angiopathy without gangrene; Z87.01 Personal history of pneumonia (recurrent); Z65.5 Exposure to disaster, war and other hostilities
CPT/HCPCS: 36415; 71045; 80053; 82550; 82553; 83880; 84484; 85025; 93005; 93010; 96360; 99285

== ENCOUNTER 2018-10-30 12:36 | Day surgery (SDC) | payer BC, MEDICAID ==
[2018-10-30] MEDS ORDERED: FLUMAZENIL INJ 0.5 MG/5 ML VIAL ONE (13:12)
[2018-10-30] MEDS ORDERED: NALOXONE HCL INJ/PF 0.4 MG/1 ML SDV ONE (13:12)
[2018-10-30] MEDS ORDERED: EPINEPHRINE INJ 1 MG/10 ML DISP.SYRIN ONE (13:12)
[2018-10-30] MEDS ORDERED: DIPHENHYDRAMINE HCL 50 MG/ML VIAL ONE (13:12)
[2018-10-30] MEDS ORDERED: MIDAZOLAM 2 MG/2 ML INJ ONE (13:12)
[2018-10-30] MEDS ORDERED: ONDANSETRON HCL INJ/PF 4 MG/2 ML SDV ONE (13:12)
[2018-10-30] MEDS ORDERED: GLUCAGON,HUMAN RECOMB 1 MG INJ ONE (13:12)
[2018-10-30] MEDS ORDERED: FENTANYL CITRATE INJ/PF 100 MCG/2 ML AMPUL ONE (13:12)
--- NOTE | 2018-10-30 13:40 | Operative Report ---
Operative Report DATE OF SURGERY: 10/30/18 Operative Report: The risks benefits and alternatives of the procedure explained to the patient in detail and informed consent is obtained.A GIF Olympus video scope was inserted into the patient's mouth and hypopharynx, the esophagus is identified intubated and insufflated, the scope was then advanced through the esophagus stomach and duodenum ,retroflexion maneuver is done ,the esophagus stomach and first and second portions of the duodenum examined. PREOPERATIVE DIAGNOSIS: Epigastric pain, early satiety POSTOPERATIVE DIAGNOSIS: Gastroparesis. Gastritis status post biopsy rule out Helicobacter pylori OPERATION: EGD with biopsy SURGEON: PITER CABRAL ANESTHESIA: Moderate Sedation TISSUE REMOVED OR ALTERED: As noted above COMPLICATIONS: None. ESTIMATED BLOOD LOSS: None. INTRAOPERATIVE FINDINGS: As noted above. PROCEDURE: Patient tolerated the procedure well. No immediate postprocedure complications are noted. Patient discharged in good condition. Discharge date 10/30/2018. Discharge diet: Regular. Discharge activity: Regular. 2 to 3-week follow-up to discuss findings. Patient is instructed to call the office or proceed to the emergency room should there be any further proximal questions. Wait on the pathology.
[2018-10-30 14:27] VITALS: BP 147/82
== END 2018-10-30 14:30 | disposition home or self-care (01) ==
LOC: END 12:36
PROVIDERS: ATTEND Internal Medicine Gastroenterology
DX: K29.50 Unspecified chronic gastritis without bleeding (principal); K31.84 Gastroparesis; R19.6 Halitosis; E11.9 Type 2 diabetes mellitus without complications; I50.9 Heart failure, unspecified; E78.00 Pure hypercholesterolemia, unspecified; Z79.82 Long term (current) use of aspirin; Z79.4 Long term (current) use of insulin; Z79.84 Long term (current) use of oral hypoglycemic drugs; Z79.899 Other long term (current) drug therapy; Z13.89 Encounter for screening for other disorder
CPT/HCPCS: 43239; 82962; 88305 ×2; J2250; J3010; J0171; J1200; J1610; J2310; J2405; J3490

== ENCOUNTER → 2018-11-22 | Outpatient (CLI) | payer BC ==
[2018-11-22 10:48] LABS: ABSOLUTE BASOPHILS # (AUTO) 0.1 10^3/uL (0.0-0.2); ABSOLUTE EOSINOPHILS # (AUTO) 0.1 10^3/uL (0.0-0.6); ABSOLUTE LYMPHOCYTES (AUTO) 1.3 10^3/uL (0.5-4.7); ABSOLUTE MONOCYTES (AUTO) 0.5 10^3/uL (0.1-1.4); ABSOLUTE NEUT (AUTO) 4.4 10^3/uL (1.7-8.2); EOSINOPHILS % (AUTO) 1.9 % (0-6); HEMATOCRIT 33.9 % (37.9-51.0); HEMOGLOBIN 11.1 g/dL (13.5-17.0); LYMPHOCYTES % (AUTO) 20.9 % (13-45); MEAN CORPUSCULAR HEMOGLOBIN 28.1 pg (27.0-33.4); MEAN CORPUSCULAR HGB CONC 32.6 g/dL (32.0-36.0); MEAN CORPUSCULAR VOLUME 86 fl (80-97); MONOCYTES % (AUTO) 7.4 % (3-13); PLATELET COUNT 200 10^3/uL (150-450); RED BLOOD COUNT 3.94 10^6/uL (4.35-5.55); RED CELL DISTRIBUTION WIDTH 13.5 % (11.5-14.0); SEGMENTED NEUTROPHILS % (AUTO) 68.8 % (42-78); TOTAL CELLS COUNTED % (AUTO) 100 %; WHITE BLOOD COUNT 6.3 10^3/uL (4.0-10.5)
[2018-11-22 11:38] LABS: ALANINE AMINOTRANSFERASE 16 U/L (21-72); ALBUMIN 3.9 g/dL (3.5-5.0); ALKALINE PHOSPHATASE 85 U/L (38-126); ANION GAP 11 (5-19); ASPARTATE AMINO TRANSFERASE 28 U/L (17-59); BILIRUBIN,DIRECT 0.4 mg/dL (0.0-0.4); BILIRUBIN,TOTAL 0.4 mg/dL (0.2-1.3); BLOOD UREA NITROGEN 43 mg/dL (7-20); CALCIUM 9.3 mg/dL (8.4-10.2); CARBON DIOXIDE 18 mmol/L (22-30); CHLORIDE 115 mmol/L (98-107); GLUCOSE 185 mg/dL (75-110); POTASSIUM 5.6 mmol/L (3.6-5.0); SODIUM 144.2 mmol/L (137-145); TOTAL PROTEIN 7.4 g/dL (6.3-8.2)
[2018-11-22 11:39] LABS: URINE CREATININE 100.6 mg/dL (22-328); URINE PROTEIN 97.2 mg/dL (<12)
== END ==
LOC: OD 09:25
PROVIDERS: ATTEND Internal Medicine Nephrology
DX: R80.9 Proteinuria, unspecified (principal); I50.9 Heart failure, unspecified; I10 Essential (primary) hypertension; E11.9 Type 2 diabetes mellitus without complications
CPT/HCPCS: 36415; 80053; 82570; 83735; 84156; 85025

== ENCOUNTER → 2018-12-03 | Outpatient (CLI) | payer BC ==
[2018-12-03 14:11] LABS: ANION GAP 10 (5-19); BLOOD UREA NITROGEN 35 mg/dL (7-20); CALCIUM 9.5 mg/dL (8.4-10.2); CARBON DIOXIDE 24 mmol/L (22-30); CHLORIDE 108 mmol/L (98-107); GLUCOSE 192 mg/dL (75-110); POTASSIUM 5.3 mmol/L (3.6-5.0); SODIUM 141.9 mmol/L (137-145)
== END ==
LOC: OD 12:20
PROVIDERS: ATTEND Physician Assistant Medical
DX: I13.0 Hypertensive heart and chronic kidney disease with heart failure and stage 1 through stage 4 chronic kidney disease, or unspecified chronic kidney disease (principal); I50.9 Heart failure, unspecified; N18.2 Chronic kidney disease, stage 2 (mild); E11.22 Type 2 diabetes mellitus with diabetic chronic kidney disease; E87.5 Hyperkalemia; N17.9 Acute kidney failure, unspecified
CPT/HCPCS: 36415; 80048

== ENCOUNTER 2018-12-13 07:32 | Observation (INO) | payer BC ==
[2018-12-13] MEDS ORDERED: RINGERS SOLUTION,LACTATED 1,000 ML IV PRN (07:55)
[2018-12-13 08:09] LABS: ABSOLUTE BASOPHILS # (AUTO) 0.1 10^3/uL (0.0-0.2); ABSOLUTE EOSINOPHILS # (AUTO) 0.1 10^3/uL (0.0-0.6); ABSOLUTE LYMPHOCYTES (AUTO) 2.1 10^3/uL (0.5-4.7); ABSOLUTE MONOCYTES (AUTO) 0.7 10^3/uL (0.1-1.4); ABSOLUTE NEUT (AUTO) 7.3 10^3/uL (1.7-8.2); BASOPHILS % (AUTO) 0.7 % (0-2); EOSINOPHILS % (AUTO) 1.1 % (0-6); HEMATOCRIT 36.3 % (37.9-51.0); HEMOGLOBIN 12.1 g/dL (13.5-17.0); LYMPHOCYTES % (AUTO) 20.6 % (13-45); MEAN CORPUSCULAR HEMOGLOBIN 28.6 pg (27.0-33.4); MEAN CORPUSCULAR HGB CONC 33.3 g/dL (32.0-36.0); MEAN CORPUSCULAR VOLUME 86 fl (80-97); MONOCYTES % (AUTO) 6.4 % (3-13); PLATELET COUNT 221 10^3/uL (150-450); RED BLOOD COUNT 4.22 10^6/uL (4.35-5.55); RED CELL DISTRIBUTION WIDTH 13.9 % (11.5-14.0); SEGMENTED NEUTROPHILS % (AUTO) 71.2 % (42-78); TOTAL CELLS COUNTED % (AUTO) 100 %; WHITE BLOOD COUNT 10.2 10^3/uL (4.0-10.5)
--- NOTE | 2018-12-13 08:36 | RADIOLOGY REPORT (SQ) ---
EXAM DESCRIPTION: CHEST SINGLE VIEW COMPLETED DATE/TIME: 12/13/2018 8:19 am REASON FOR STUDY: sob chf COMPARISON: 04/06/2017 EXAM PARAMETERS: NUMBER OF VIEWS: One view. TECHNIQUE: Single frontal radiographic view of the chest acquired. RADIATION DOSE: NA LIMITATIONS: None. FINDINGS: LUNGS AND PLEURA: No opacities, masses or pneumothorax. No pleural effusion. MEDIASTINUM AND HILAR STRUCTURES: No masses. Contour normal. HEART AND VASCULAR STRUCTURES: Heart normal in size. Normal vasculature. BONES: No acute findings. HARDWARE: None in the chest. OTHER: No other significant finding. IMPRESSION: No acute abnormality of the lungs in AP projection. TECHNICAL DOCUMENTATION: JOB ID: [id number] [employer]- All Rights Reserved Reading location - IP/workstation name: [email or web address]
[2018-12-13 08:39] LABS: ANION GAP 11 (5-19); BLOOD UREA NITROGEN 53 mg/dL (7-20); CALCIUM 9.1 mg/dL (8.4-10.2); CARBON DIOXIDE 27 mmol/L (22-30); CHLORIDE 100 mmol/L (98-107); GLUCOSE 199 mg/dL (75-110); POTASSIUM 4.4 mmol/L (3.6-5.0); SODIUM 137.6 mmol/L (137-145)
[2018-12-13 08:56] LABS: NT PRO BNP 20 pg/mL (<125)
[2018-12-13 08:58] LABS: TROPONIN I < 0.012 ng/mL
--- NOTE | 2018-12-13 09:07 | ER Document Report ---
ED General - General Chief Complaint: Weakness Stated Complaint: WEAKNESS Time Seen by Provider: 12/13/18 07:54 Primary Care Provider: NIYA TODD DO [Primary Care Provider] - Follow up as needed Notes: 48-year-old male with moist weakness for 3 days. He says he lost "my get up and go." Intermittent left-sided chest pain as well. Mild shortness of breath. Constant. Associated with CHF. No leg swelling worse than usual, compliant with Lasix. TRAVEL OUTSIDE OF THE [place] IN LAST 30 DAYS: No - Related Data Allergies/Adverse Reactions: No Known Allergies Allergy (Verified 12/13/18 07:38) Past Medical History - Social History Smoking Status: Never Smoker Chew tobacco use (# tins/day): No Frequency of alcohol use: None Drug Abuse: None Family History: Reviewed & Not Pertinent, CAD, DM, Hypertension Patient has suicidal ideation: No Patient has homicidal ideation: No - Past Medical History Cardiac Medical History: Reports: Hx Congestive Heart Failure, Hx Hypertension, Hx Peripheral Vascular Disease Denies: Hx Coronary Artery Disease - CHOLESTEROL, Hx Heart Attack Pulmonary Medical History: Reports: Hx Bronchitis Denies: Hx Asthma, Hx COPD, Hx Pneumonia Neurological Medical History: Denies: Hx Cerebrovascular Accident, Hx Seizures Endocrine Medical History: Reports: Hx Diabetes Mellitus Type 2 Renal/ Medical History: Denies: Hx Peritoneal Dialysis Musculoskeletal Medical History: Denies Hx Arthritis Psychiatric Medical History: Reports: Hx Depression Past Surgical History: Reports: Hx Orthopedic Surgery - dRight 5th toe amputation, Hx Testicular Surgery - abscess removal, Other - Removal of "tumor" from the right thigh, removal of multiple boils. Denies: Hx Cardiac Catheterization - Immunizations Hx Diphtheria, Pertussis, Tetanus Vaccination: Yes Hx Pneumococcal Vaccination: 10/05/13 Review of Systems - Review of Systems Notes: REVIEW OF SYSTEMS GEN: Creased energy ENT: Denies sore throat, nasal discharge, ear pain EYES: Denies blurry vision, eye pain, discharge CV: Denies chest pain, palpitations, edema RESP: Denies cough, shortness of breath, wheezing GI: Denies abdominal pain, nausea, vomiting, diarrhea MSK: Denies joint pain/swelling, edema, SKIN: Denies rash, skin lesions LYMPH: Denies swollen glands/lymph nodes NEURO: Denies headache, focal weakness or numbness, dizziness PSYCH: Denies depression, suicidal or homicidal ideation PHYSICAL EXAMINATION General: No acute distress, well-nourished Head: Atraumatic, normocephalic ENT: Mouth normal, oropharynx moist, no exudates or tonsillar enlargement Eyes: Conjunctiva normal, pupils equal, lids normal Neck: No JVD, supple, no guarding CVS: Normal rate, regular rhythm, no murmurs Resp: No resp distress, equal and normal breath sounds bilaterally GI: Nondistended, soft, no tenderness to palpation, no rebound or guarding Ext: No deformities, no edema, normal range of motion in upper and lower ext Back: No CVA or midline TTP Skin: No rash, warm Lymphatic: No lymphadeopathy noted Neuro: Awake, alert. Face symmetric. GCS 15. Physical Exam - Vital signs Vitals: Temp Pulse Resp BP Pulse Ox 98.5 F 95 20 73/48 L 94 12/13/18 07:43 12/13/18 07:43 12/13/18 07:43 12/13/18 07:43 12/13/18 07:43 Course - Re-evaluation Re-evalutation: 12/13/18 09:11 Decreased energy and intermittent chest pain in a patient with CHF. EKG does not show acute STEMI. Labs show acute kidney injury. Likely dry. We will hydrate gently and hold Lasix and admit to the hospitalist for further management. Discussed with Marian Woody nurse practitioner. - Vital Signs Vital signs: Temp Pulse Resp BP Pulse Ox 98.5 F 95 15 106/68 96 12/13/18 07:43 12/13/18 07:43 12/13/18 08:01 12/13/18 08:00 12/13/18 08:01 - Laboratory Result Diagrams: 12/13/18 07:55 12/13/18 07:55 Laboratory results interpreted by me: 12/13/18 12/13/18 07:55 07:55 RBC 4.22 L Hgb 12.1 L Hct 36.3 L BUN 53 H Creatinine 2.76 H Est GFR ( Amer) 30 L Est GFR (Non-Af Amer) 25 L Glucose 199 H - Diagnostic Test Radiology reviewed: Image reviewed, Reports reviewed - EKG Interpretation by Me EKG shows normal: Sinus rhythm Rate: Normal Rhythm: NSR When compared to previous EKG there are: No significant change - My computer read out to do not see consistent ST elevation or cervical change concerning for either pericarditis or STEMI Discharge - Discharge Clinical Impression: Acute kidney injury Condition: Good Disposition: ADMITTED INPATIENT Admitting Provider: Hemant (Hospitalist) Unit Admitted: Telemetry Referrals: NIYA TODD DO [Primary Care Provider] - Follow up as needed
[2018-12-13] MEDS ORDERED: RINGERS SOLUTION,LACTATED 1,000 ML IV ONE (09:08)
--- NOTE | 2018-12-13 10:19 | EKG REPORT ---
SEVERITY:- ABNORMAL ECG - SINUS RHYTHM ST ELEVATION, PROBABLE LATERAL INJURY : Confirmed by: Dayanna Nicholas MD 13-Dec-2018 10:19:00
[2018-12-13] MEDS ORDERED: ALBUTEROL SULFATE 0.083% NEB 2.5 MG/3 ML AMPUL NEB PRN (11:22)
[2018-12-13] MEDS ORDERED: MAG HYDROX/AL HYDROX/SIMETH SUSP 30 ML UDCUP PO PRN (11:22)
[2018-12-13] MEDS ORDERED: ACETAMINOPHEN 325 MG TABLET PO PRN ×2 (11:22→15:00)
[2018-12-13] MEDS ORDERED: ONDANSETRON HCL INJ/PF 4 MG/2 ML SDV IV PRN ×2 (11:22→15:00)
[2018-12-13] MEDS ORDERED: NORMAL SALINE 1000 ML 1,000 ML IV PRN (11:22)
[2018-12-13] MEDS ORDERED: PROMETHAZINE HCL INJ 25 MG/1 ML VIAL IV PRN ×2 (11:22→15:00)
[2018-12-13] MEDS ORDERED: DEXTROSE 40% GEL 15 GM TUBE PO PRN ×2 (11:27)
[2018-12-13] MEDS ORDERED: GLUCAGON,HUMAN RECOMB 1 MG INJ IM PRN (11:27)
[2018-12-13] MEDS ORDERED: DEXTROSE 50%-WATER 25 GM/50 ML DISP.SYRIN IV PRN ×2 (11:27)
[2018-12-13] MEDS: HEPARIN SOD (PORCINE) 5,000 UNIT/ML 1 ML SYRINGE SUBCUT SCH ×2 (13:59→21:53)
[2018-12-13] MEDS: NORMAL SALINE 1000 ML 1,000 ML IV PRN (15:34)
[2018-12-13] MEDS: INSULIN LISPRO 100 UNIT/ML 3 ML VIAL SUBCUT SCH ×2 (16:47→21:52)
--- NOTE | 2018-12-13 18:12 | PDOC H&P ---
<FOWLERJULIEN - Last Filed: 12/13/18 17:26> History of Present Illness Admission Date/PCP: 12/13/18 11:00 NIYA TODD DO Patient complains of: "Dizziness", "feeling dehydrated with muscle weakness" History of Present Illness: JEANNE DELEON is a 48 year old male with a PMH of CHF, DM type 2, diverticulosis, HTN and sleep apnea. He presents to the Ed today with c/o dizziness, dehydration and muscle weakness. He reports that he had 4 episodes of diarrhea from soft loose stools to watery stool. He denies abdominal pain, reports nausea yesterday, denies vomiting. He denies headache or fevers. He reports that he hasn't been eating as much due to trying to get fluid around his abdomen off. He reports that he has had swelling in his abdomen for a few months and has noticed a recent weight gain from 233 pounds to 240 pounds. He reports that he is feeling hungry, and is ready to have regular food. Past Medical History Cardiac Medical History: Reports: Congestive Heart Failure, Hypertension, Peripheral Vascular Disease Denies: Coronary Artery Disease - CHOLESTEROL, Myocardial Infarction Pulmonary Medical History: Reports: Bronchitis, Sleep Apnea Denies: Asthma, Chronic Obstructive Pulmonary Disease (COPD), Pneumonia Neurological Medical History: Denies: Seizures Endocrine Medical History: Reports: Diabetes Mellitus Type 2 Renal/ History Note: Reports history of dehydration in the past that cause creatinine to increase. GI Medical History: Reports: Other Musculoskeltal Medical History: Denies: Arthritis Skin Medical History: Reports: None Psychiatric Medical History: Reports: Depression Traumatic Medical History: Reports: None Hematology: Reports: None Denies: Anemia Past Surgical History Past Surgical History: Reports: Orthopedic Surgery - Right 5th toe amputation, Other - Removal of "tumor" from the right thigh, removal of multiple boils Denies: Cardiac Catheterization Social History Smoking Status: Never Smoker Frequency of Alcohol Use: None Hx Recreational Drug Use: No Drugs: None Hx Prescription Drug Abuse: No Family History Family History: Reviewed & Not Pertinent, CAD, DM, Hypertension Parental Family History Reviewed: Yes Medication/Allergy Home Medications: Atorvastatin Calcium [Lipitor 20 mg Tablet] 20 mg PO QHS 12/13/18 Carvedilol [Coreg 6.25 mg Tablet] 6.25 mg PO Q12 12/13/18 Empagliflozin [Jardiance] 10 mg PO DAILY 12/13/18 Furosemide [Lasix 20 mg Tablet] 20 mg PO DAILY 12/13/18 Sacubitril/Valsartan [Entresto 49 mg/51 mg Tablet] 1 tab PO BID 12/13/18 Sitagliptin Phosphate [Januvia] 100 mg PO DAILY 12/13/18 Sodium Zirconium Cyclosilicate [Lokelma] 10 gm PO MOWE@1000 12/13/18 Allergies/Adverse Reactions: No Known Allergies Allergy (Verified 12/13/18 07:38) Review of Systems Constitutional: PRESENT: weakness, weight loss Nose, Mouth, and Throat: PRESENT: other - dry mouth Gastrointestinal: PRESENT: diarrhea - reports loose to watery stools x 4 yesterday, nausea - started yesterday Physical Exam Vital Signs: Temp Pulse Resp BP Pulse Ox 98.5 F 95 17 119/83 96 12/13/18 07:43 12/13/18 07:43 12/13/18 10:01 12/13/18 10:00 12/13/18 10:01 Intake & Output 12/12/18 12/13/18 12/14/18 06:59 06:59 06:59 Weight 108.1 kg General appearance: PRESENT: no acute distress, well-developed, well-nourished Head exam: PRESENT: normocephalic Eye exam: PRESENT: conjunctiva pink Ear exam: PRESENT: normal external ear exam Mouth exam: PRESENT: dry mucosa, neck supple Neck exam: PRESENT: full ROM Respiratory exam: PRESENT: clear to auscultation donna, symmetrical Cardiovascular exam: PRESENT: RRR, +S1, +S2 Pulses: PRESENT: +1 pedal pulses bilateral Vascular exam: PRESENT: normal capillary refill GI/Abdominal exam: PRESENT: normal bowel sounds, soft Rectal exam: PRESENT: deferred Musculoskeletal exam: PRESENT: tenderness - Right shoulder. Left ribs and chest - reproducible with breathing x several months Neurological exam: PRESENT: alert, awake, oriented to person, oriented to place, oriented to time, oriented to situation Psychiatric exam: PRESENT: appropriate affect Skin exam: PRESENT: intact, normal color, warm Results Laboratory Results: 12/13/18 07:55 12/13/18 07:55 12/13/18 12/13/18 12/13/18 07:55 07:55 07:55 WBC 10.2 RBC 4.22 L Hgb 12.1 L Hct 36.3 L MCV 86 MCH 28.6 MCHC 33.3 RDW 13.9 Plt Count 221 Seg Neutrophils % 71.2 Lymphocytes % 20.6 Monocytes % 6.4 Eosinophils % 1.1 Basophils % 0.7 Absolute Neutrophils 7.3 Absolute Lymphocytes 2.1 Absolute Monocytes 0.7 Absolute Eosinophils 0.1 Absolute Basophils 0.1 Sodium 137.6 Potassium 4.4 Chloride 100 Carbon Dioxide 27 Anion Gap 11 BUN 53 H Creatinine 2.76 H Est GFR ( Amer) 30 L Est GFR (Non-Af Amer) 25 L Glucose 199 H Lactic Acid Calcium 9.1 Magnesium 2.2 12/13/18 08:13 WBC RBC Hgb Hct MCV MCH MCHC RDW Plt Count Seg Neutrophils % Lymphocytes % Monocytes % Eosinophils % Basophils % Absolute Neutrophils Absolute Lymphocytes Absolute Monocytes Absolute Eosinophils Absolute Basophils Sodium Potassium Chloride Carbon Dioxide Anion Gap BUN Creatinine Est GFR ( Amer) Est GFR (Non-Af Amer) Glucose Lactic Acid 1.0 Calcium Magnesium 12/13/18 07:55 Troponin I < 0.012 NT-Pro-B Natriuret Pep 20 Impressions: Chest X-Ray 12/13/18 07:58 IMPRESSION: No acute abnormality of the lungs in AP projection. Assessment and Plan - Diagnosis (1) Acute kidney injury Is this a current diagnosis for this admission?: Yes Plan: Creatinine is elevated from 1.59 10 days ago to 2.76 today. His blood pressure was in the 70's systolic on arrival and he received IV fluids of LR x one liter, and then normal saline IV at 100 ml/hr to hydrate. We will Monitor BUN and Creatinine to evalulate renal function on daily labs. Strict Intake and output to monitor fluid balance. Hold Enestro, Lasix, Januvia and Jardiance as these can be contributing to the renal failure. We re-evaluate when renal function is at baseline. If renal function isn't improving on am labs, consult Dr. Wills and Dr. Sloan to evaluate for management of these medications and further recommendations. (2) Dehydration symptoms Is this a current diagnosis for this admission?: Yes Plan: Continue normal saline IV fluids at 100 ml/hr. Strict I&O's. CBC and BMP in am to evaluate for improvement in dehydration and renal function. (3) Chronic CHF Qualifiers: Heart failure type: unspecified Qualified Code(s): I50.9 - Heart failure, unspecified Is this a current diagnosis for this admission?: Yes Plan: Hold Enestro and Lasix for now, monitor for signs or symptoms of fluid overload. Daily weights. Monitor I&O's. (4) DM2 (diabetes mellitus, type 2) Qualifiers: Diabetes mellitus complication status: with ophthalmic complications Laterality: bilateral Plan: Hold Januvia and Jardiance until renal function back to baseline. finger stick accu checks ac and HS with sliding scale coverage for blood sugar control until able to restart home oral hypoglycemics. (5) Diarrhea Is this a current diagnosis for this admission?: Yes Plan: Stool specimen to evaluate for infectious etiology or occult blood. - Time Time Spent with patient: 35 or more minutes Medications reviewed and adjusted accordingly: Yes Anticipated discharge: Home <LIANG MOSQUERA - Last Filed: 12/13/18 18:11> History of Present Illness Admission Date/PCP: 12/13/18 09:40 NIYA TODD DO History of Present Illness: Evaluation in emergency department revealed hypotension, baseline anemia, and acute kidney injury with creatinine of 2.6 up from his normal of 1.6. He has an associated increase in BUN to 53. Initial troponin is negative. EKG and chest x-ray are benign. He has been started on gentle IV fluids and is referred to the hospitalist service for admission and management of acute kidney injury secondary to dehydration in setting of CHF. Past Medical History Cardiac Medical History: Reports: Congestive Heart Failure, Hyperlipidema, Hy pertension, Peripheral Vascular Disease Denies: Coronary Artery Disease, Myocardial Infarction Pulmonary Medical History: Reports: Bronchitis, Sleep Apnea Neurological Medical History: Denies: Ischemic CVA, Seizures Endocrine Medical History: Reports: Diabetes Mellitus Type 2 Malignancy Medical History: Reports: None GI Medical History: Reports: None Skin Medical History: Reports: None Psychiatric Medical History: Reports: Depression Traumatic Medical History: Reports: None Hematology: Reports: Anemia Past Surgical History Past Surgical History: Reports: Orthopedic Surgery Social History Information Source: Patient Lives with: Family Smoking Status: Never Smoker Frequency of Alcohol Use: None Hx Recreational Drug Use: No Drugs: None Hx Prescription Drug Abuse: No - Advance Directive Resuscitation Status: Full Code Family History Family History: CAD, DM, Hypertension Parental Family History Reviewed: Yes Children Family History Reviewed: Yes Sibling(s) Family History Reviewed.: Yes Review of Systems Constitutional: PRESENT: weakness, weight gain. ABSENT: chills, fever(s), headache(s), weight loss Eyes: ABSENT: visual disturbances Ears: ABSENT: hearing changes Nose, Mouth, and Throat: PRESENT: other Cardiovascular: ABSENT: chest pain, dyspnea on exertion, edema, orthropnea, palpitations Respiratory: ABSENT: cough, hemoptysis Gastrointestinal: PRESENT: diarrhea, nausea. ABSENT: abdominal pain, constipation, hematemesis, hematochezia, vomiting Genitourinary: ABSENT: dysuria, hematuria Musculoskeletal: ABSENT: joint swelling Integumentary: ABSENT: rash, wounds Neurological: PRESENT: weakness. ABSENT: abnormal gait, abnormal speech, confusion, dizziness, focal weakness, syncope Psychiatric: ABSENT: anxiety, depression, homidical ideation, suicidal ideation Endocrine: ABSENT: cold intolerance, heat intolerance, polydipsia, polyuria Hematologic/Lymphatic: ABSENT: easy bleeding, easy bruising Physical Exam Vital Signs: Temp Pulse Resp BP Pulse Ox 98.5 F 87 16 119/72 96 12/13/18 12:22 12/13/18 14:13 12/13/18 14:13 12/13/18 12:22 12/13/18 14:13 Intake & Output 12/12/18 12/13/18 12/14/18 06:59 06:59 06:59 Intake Total 992 Output Total 200 Balance 792 Weight 108.1 kg General appearance: PRESENT: no acute distress, well-developed, well-nourished Head exam: PRESENT: atraumatic, normocephalic Eye exam: PRESENT: conjunctiva pink, EOMI, PERRLA. ABSENT: scleral icterus Ear exam: PRESENT: normal external ear exam Mouth exam: PRESENT: moist, tongue midline Neck exam: ABSENT: carotid bruit, JVD, lymphadenopathy, thyromegaly Respiratory exam: PRESENT: clear to auscultation donna, symmetrical, unlabored. ABSENT: rales, rhonchi, wheezes Cardiovascular exam: PRESENT: RRR, +S1, +S2. ABSENT: diastolic murmur, rubs, systolic murmur Pulses: PRESENT: normal dorsalis pedis pul Vascular exam: PRESENT: normal capillary refill GI/Abdominal exam: PRESENT: normal bowel sounds, soft. ABSENT: distended, guarding, mass, organolmegaly, rebound, tenderness Rectal exam: PRESENT: deferred Extremities exam: PRESENT: full ROM. ABSENT: calf tenderness, clubbing, pedal edema Neurological exam: PRESENT: alert, awake, oriented to person, oriented to place, oriented to time, oriented to situation, CN II-XII grossly intact. ABSENT: motor sensory deficit Psychiatric exam: PRESENT: appropriate affect, normal mood. ABSENT: homicidal ideation, suicidal ideation Skin exam: PRESENT: dry, intact, warm. ABSENT: cyanosis, rash Results Laboratory Results: 12/13/18 07:55 12/13/18 07:55 12/13/18 12/13/18 12/13/18 07:55 07:55 07:55 WBC 10.2 RBC 4.22 L Hgb 12.1 L Hct 36.3 L MCV 86 MCH 28.6 MCHC 33.3 RDW 13.9 Plt Count 221 Seg Neutrophils % 71.2 Lymphocytes % 20.6 Monocytes % 6.4 Eosinophils % 1.1 Basophils % 0.7 Absolute Neutrophils 7.3 Absolute Lymphocytes 2.1 Absolute Monocytes 0.7 Absolute Eosinophils 0.1 Absolute Basophils 0.1 Sodium 137.6 Potassium 4.4 Chloride 100 Carbon Dioxide 27 Anion Gap 11 BUN 53 H Creatinine 2.76 H Est GFR ( Amer) 30 L Est GFR (Non-Af Amer) 25 L Glucose 199 H Lactic Acid Calcium 9.1 Magnesium 2.2 12/13/18 08:13 WBC RBC Hgb Hct MCV MCH MCHC RDW Plt Count Seg Neutrophils % Lymphocytes % Monocytes % Eosinophils % Basophils % Absolute Neutrophils Absolute Lymphocytes Absolute Monocytes Absolute Eosinophils Absolute Basophils Sodium Potassium Chloride Carbon Dioxide Anion Gap BUN Creatinine Est GFR ( Amer) Est GFR (Non-Af Amer) Glucose Lactic Acid 1.0 Calcium Magnesium 12/13/18 07:55 Troponin I < 0.012 NT-Pro-B Natriuret Pep 20 Impressions: Chest X-Ray 12/13/18 07:58 IMPRESSION: No acute abnormality of the lungs in AP projection. Assessment and Plan - Diagnosis (1) Acute kidney injury Is this a current diagnosis for this admission?: Yes Plan: Agree with the above. (2) Chronic CHF Qualifiers: Heart failure type: unspecified Qualified Code(s): I50.9 - Heart failure, u nspecified Is this a current diagnosis for this admission?: Yes Plan: Continue home dose carvedilol, statin, aspirin therapy. Cardiac diet. Strict I's and O's and daily weights. Otherwise agree with plan as above. (3) Dehydration symptoms Is this a current diagnosis for this admission?: Yes Plan: Orthostatic vital signs positive. Continue to hold Entresto, furosemide. Continue gentle IV fluids. Fall precautions. Check a.m. cortisol. (4) Diarrhea Is this a current diagnosis for this admission?: Yes Plan: As above (5) DM2 (diabetes mellitus, type 2) Qualifiers: Laterality: bilateral Plan: Consistent carb/cardiac diet. Otherwise agree with plan as above. - Time Time Spent with patient: 35 or more minutes Medications reviewed and adjusted accordingly: Yes Anticipated discharge: Home Within: within 24 hours
[2018-12-13] MEDS: CARVEDILOL 6.25 MG TABLET PO SCH (21:52)
[2018-12-13] MEDS: FAMOTIDINE 20 MG TABLET PO SCH (21:52)
[2018-12-13] MEDS: ATORVASTATIN CALCIUM 20 MG TABLET PO SCH (21:52)
[2018-12-13] MEDS ORDERED: FAMOTIDINE 20 MG TABLET PO SCH (22:00)
[2018-12-14] MEDS: HEPARIN SOD (PORCINE) 5,000 UNIT/ML 1 ML SYRINGE SUBCUT SCH ×3 (05:14→21:45)
[2018-12-14 06:13] LABS: HEMATOCRIT 34.2 % (37.9-51.0); HEMOGLOBIN 11.1 g/dL (13.5-17.0); MEAN CORPUSCULAR HEMOGLOBIN 28.2 pg (27.0-33.4); MEAN CORPUSCULAR HGB CONC 32.6 g/dL (32.0-36.0); MEAN CORPUSCULAR VOLUME 87 fl (80-97); PLATELET COUNT 173 10^3/uL (150-450); RED BLOOD COUNT 3.95 10^6/uL (4.35-5.55); RED CELL DISTRIBUTION WIDTH 13.4 % (11.5-14.0); WHITE BLOOD COUNT 6.8 10^3/uL (4.0-10.5)
[2018-12-14 06:27] LABS: ANION GAP 7 (5-19); BLOOD UREA NITROGEN 43 mg/dL (7-20); CALCIUM 8.7 mg/dL (8.4-10.2); CARBON DIOXIDE 26 mmol/L (22-30); CHLORIDE 107 mmol/L (98-107); GLUCOSE 129 mg/dL (75-110); POTASSIUM 4.4 mmol/L (3.6-5.0); SODIUM 139.8 mmol/L (137-145)
[2018-12-14] MEDS: INSULIN LISPRO 100 UNIT/ML 3 ML VIAL SUBCUT SCH ×4 (08:42→21:40)
[2018-12-14] MEDS: NORMAL SALINE 1000 ML 1,000 ML IV PRN ×2 (08:44→15:34)
[2018-12-14] MEDS: CARVEDILOL 6.25 MG TABLET PO SCH ×2 (09:49→21:40)
[2018-12-14] MEDS ORDERED: COSYNTROPIN INJ 0.25 MG VIAL IV ONE (14:30)
--- NOTE | 2018-12-14 17:28 | PDOC PROGRESS REPORT ---
Subjective Progress Note for:: 12/14/18 Subjective:: JEANNE DELEON is a 48 year old male with a PMH of CHF, DM type 2, diverticulosis, HTN and sleep apnea who was admitted 12/13/18 for ASCENCION. The patient was seen on afternoon rounds. He was found resting in bed comfortably, supine, on room air. He reports that he is feeling better today. He denies dizziness or lightheadedness when walking to the restroom despite continued orthostatic blood pressures. He reports good urinary output. He further denies fever, chills, headache, dizziness, chest pain, palpitations, dyspnea, orthopnea, abdominal pain, nausea vomiting and diarrhea. He has no questions or concerns at this time. No concerns per nursing. Reason For Visit: ACUTE KIDNEY INJURY,DEHYDRATION Physical Exam Vital Signs: Temp Pulse Resp BP Pulse Ox 98.6 F 91 16 135/69 H 98 12/14/18 15:34 12/14/18 15:34 12/14/18 15:34 12/14/18 15:34 12/14/18 15:34 Intake & Output 12/13/18 12/14/18 12/15/18 06:59 06:59 06:59 Intake Total 3282 1520 Output Total 1580 400 Balance 1702 1120 Weight 108.9 kg General appearance: PRESENT: no acute distress, cooperative, well-developed, well-nourished - overweight Head exam: PRESENT: atraumatic, normocephalic Eye exam: PRESENT: conjunctiva pink, EOMI, PERRLA. ABSENT: scleral icterus Ear exam: PRESENT: normal external ear exam Mouth exam: PRESENT: moist, tongue midline Neck exam: ABSENT: carotid bruit, JVD, lymphadenopathy, thyromegaly Respiratory exam: PRESENT: clear to auscultation donna, symmetrical, unlabored. ABSENT: rales, rhonchi, wheezes Cardiovascular exam: PRESENT: RRR, +S1, +S2. ABSENT: diastolic murmur, rubs, systolic murmur Pulses: PRESENT: normal dorsalis pedis pul Vascular exam: PRESENT: normal capillary refill GI/Abdominal exam: PRESENT: normal bowel sounds, soft. ABSENT: distended, guarding, mass, organolmegaly, rebound, tenderness Rectal exam: PRESENT: deferred Extremities exam: PRESENT: full ROM. ABSENT: calf tenderness, clubbing, pedal edema Neurological exam: PRESENT: alert, awake, oriented to person, oriented to place, oriented to time, oriented to situation, CN II-XII grossly intact. ABSENT: motor sensory deficit Psychiatric exam: PRESENT: appropriate affect, normal mood. ABSENT: homicidal ideation, suicidal ideation Skin exam: PRESENT: dry, intact, warm. ABSENT: cyanosis, rash Results Laboratory Results: 12/14/18 05:19 12/14/18 05:19 12/14/18 12/14/18 05:19 05:19 WBC 6.8 RBC 3.95 L Hgb 11.1 L Hct 34.2 L MCV 87 MCH 28.2 MCHC 32.6 RDW 13.4 Plt Count 173 Sodium 139.8 Potassium 4.4 Chloride 107 Carbon Dioxide 26 Anion Gap 7 BUN 43 H Creatinine 1.70 H Est GFR ( Amer) 53 L Est GFR (Non-Af Amer) 43 L Glucose 129 H Calcium 8.7 12/13/18 07:55 Troponin I < 0.012 NT-Pro-B Natriuret Pep 20 Impressions: Chest X-Ray 12/13/18 07:58 IMPRESSION: No acute abnormality of the lungs in AP projection. Assessment and Plan - Diagnosis (1) Acute kidney injury Is this a current diagnosis for this admission?: Yes Plan: Resolved. Creatinine on admission was 2.76, up from baseline of 1.69. He is found to be orthostatic. The patient is admitted to the medical floor. His Entresto and furosemide are held. He has been provided gentle IV fluids We will continue to avoid nephrotoxic medications as able. We will check daily chemistries. (2) Chronic CHF Qualifiers: Heart failure type: unspecified Qualified Code(s): I50.9 - Heart failure, unspecified Is this a current diagnosis for this admission?: Yes Plan: Entresto and furosemide are held. Continue home dose carvedilol, statin, aspirin therapy. Cardiac diet. Strict I&O's and daily weights. We will discuss with Dr. Nicholas tomorrow prior to discharge; may need to continue holding Entresto versus restarting at lower dose. (3) Dehydration symptoms Is this a current diagnosis for this admission?: Yes Plan: Patient is no longer symptomatic when ambulatory. He does continue to have orthostasis. Continue to hold Entresto, furosemide. Received IV fluids; will discontinue to prevent fluid volume overload. Fall precautions. (4) Diarrhea Is this a current diagnosis for this admission?: Yes Plan: Stool culture pending. Only one bowel movement overnight. Patient remains afebrile with normal WBC. No indications for antibiotic therapy at this time (5) DM2 (diabetes mellitus, type 2) Qualifiers: Diabetes mellitus intermediate project manager insulin use: without fci use Is this a current diagnosis for this admission?: Yes Plan: Consistent carb/cardiac diet. Hold Januvia and Jardiance until renal function back to baseline. finger stick accu checks ac and HS with sliding scale coverage for blood sugar control (6) Orthostatic hypotension Is this a current diagnosis for this admission?: Yes Plan: A.m. cortisol was low at 4.15. A THC stimulation testing is normal with post cosyntropin cortisol level of 25.10. Patient continues to have orthostatic blood pressures despite holding Entresto and furosemide. Standing blood pressure 70/40. Fortunately the patient is no longer feeling dizziness or lightheadedness when standing and ambulating. We will start Midrin 5 mg 3 times daily. We will discuss with cardiology tomorrow prior to resumption of Entresto and furosemide. - Time Time Spent with patient: 25-34 minutes Medications reviewed and adjusted accordingly: Yes Anticipated discharge: Home Within: within 24 hours
[2018-12-14] MEDS: MIDODRINE HCL 5 MG TABLET PO SCH (17:54)
[2018-12-14] MEDS: ATORVASTATIN CALCIUM 20 MG TABLET PO SCH (21:40)
[2018-12-14] MEDS: FAMOTIDINE 20 MG TABLET PO SCH (21:40)
[2018-12-15 05:04] LABS: ANION GAP 6 (5-19); BLOOD UREA NITROGEN 37 mg/dL (7-20); CALCIUM 8.2 mg/dL (8.4-10.2); CARBON DIOXIDE 25 mmol/L (22-30); CHLORIDE 111 mmol/L (98-107); GLUCOSE 132 mg/dL (75-110); POTASSIUM 4.7 mmol/L (3.6-5.0); SODIUM 142.1 mmol/L (137-145)
[2018-12-15] MEDS: HEPARIN SOD (PORCINE) 5,000 UNIT/ML 1 ML SYRINGE SUBCUT SCH ×2 (05:34→14:00)
[2018-12-15] MEDS: INSULIN LISPRO 100 UNIT/ML 3 ML VIAL SUBCUT SCH ×2 (08:00→12:41)
[2018-12-15] MEDS ORDERED: SACUBITRIL/VALSARTAN 24 MG/26 MG TABLET PO SCH (10:00)
[2018-12-15] MEDS: CARVEDILOL 6.25 MG TABLET PO SCH (10:42)
[2018-12-15] MEDS: MIDODRINE HCL 5 MG TABLET PO SCH ×2 (10:44→15:27)
[2018-12-15 15:33] VITALS: BP 119/72
--- NOTE | 2018-12-16 15:00 | PDOC DISCHARGE SUMMARY ---
General - Admit/Disc Date/PCP Admission Date/Primary Care Provider: 12/13/18 09:40 NIYA TODD, DO Discharge Date: 12/15/18 - Discharge Diagnosis (1) Acute kidney injury Is this a current diagnosis for this admission?: Yes Summary: Resolved. Creatinine 2.76-> 1.70-> 1.50. Baseline of 1.69. He is found to have orthostatic hypotension. The patient was admitted to the medical floor. His Entresto and furosemide were held and he was rovided gentle IV fluids The patient's creatinine has returned to baseline and he has excellent urinary output. Patient is discharged home in stable condition. At discharge his home diabetic regiment is resumed. He is provided a 7 day prescription for low-dose Entresto. He is advised to continue holding furosemide unless he gains 2 lbs over night. He is instructed to follow up with his PCP within 1 week; recommend review of Jardiance and Januvia for renal implications. He is instructed to contact his established administrative assistant coordinator, Dr. Angeles, on Monday to schedule follow-up appointment for as soon as possible He is advised to return to the emergency department as needed for concerning symptoms. (2) Chronic CHF Is this a current diagnosis for this admission?: Yes Summary: Echocardiogram from October 2016 revealed LVEF 45 to 50%. Patient advised that he has had a more recent echocardiogram done as an outpatient at Dr. Angeles's office. Recommend continued cardiac diet, daily weights. Continue home dose carvedilol, statin, aspirin therapy. Patient is provided a 7-day prescription for low-dose Entresto. He is advised to hold his furosemide, weigh daily, and resume if he gains 2 pounds overnight. He is instructed to contact Dr. Angeles's office on Monday and schedule a follow- up appointment for the earliest available. (3) Dehydration symptoms Is this a current diagnosis for this admission?: Yes Summary: Resolved. Patient was admitted with orthostatic hypotension and presyncopal symptoms while ambulatory. He is no longer symptomatic when ambulatory and was observed to be independently ambulating in the hallways this afternoon prior to discharge. Management as above. (4) Diarrhea Is this a current diagnosis for this admission?: Yes Summary: Resolved. Stool culture is negative. Only one bowel movement during hospital admission. Patient remained afebrile with normal WBCs. No indication for antibiotic therapy at this time. (5) DM2 (diabetes mellitus, type 2) Is this a current diagnosis for this admission?: Yes Summary: Resume consistent carb/cardiac diet and outpatient medication regimen at discharge. Recommend the patient discuss his current medication regimen of Januvia and Jardiance related to his renal function at his follow-up appointment with his primary care provider. (6) Orthostatic hypotension Is this a current diagnosis for this admission?: Yes Summary: A.m. cortisol was low at 4.15. ACTH stimulation testing is normal with post cosyntropin cortisol level of 25.10. Patient continues to have orthostatic hypotension, but is no longer symptomatic. TSH is nml. Continue Midodrin 5 mg 3 times daily. Resume low-dose Entresto. Continue holding furosemide as above. Follow up with established administrative assistant coordinator, Dr. Angeles, within 1 week. We will discuss with cardiology tomorrow prior to resumption of Entresto and furosemide - Additional Information Resuscitation Status: Full Code Discharge Diet: Cardiac, Diabetic Discharge Activity: Activity As Tolerated, Balance Activity w/Rest, Weigh Daily Prescriptions: Midodrine HCl [Proamatine 5 mg Tablet] 5 mg PO TID #30 tablet Sacubitril/Valsartan [Entresto 24 mg/26 mg Tablet] 1 tab PO Q12 #14 tablet Home Medications: Atorvastatin Calcium [Lipitor 20 mg Tablet] 20 mg PO QHS 12/13/18 Carvedilol [Coreg 6.25 mg Tablet] 6.25 mg PO Q12 12/13/18 Empagliflozin [Jardiance] 10 mg PO DAILY 12/13/18 Sitagliptin Phosphate [Januvia] 100 mg PO DAILY 12/13/18 Sodium Zirconium Cyclosilicate [Lokelma] 10 gm PO MOWE@1000 12/13/18 Acetaminophen [Tylenol 325 mg Tablet] 650 mg PO Q6HP PRN tablet 12/15/18 Midodrine HCl [Proamatine 5 mg Tablet] 5 mg PO TID #30 tablet 12/15/18 Sacubitril/Valsartan [Entresto 24 mg/26 mg Tablet] 1 tab PO Q12 #14 tablet 12/15/18 History of Present Illness History of Present Illness: JEANNE DELEON is a 48 year old male with a PMH of CHF, DM type 2, diverticulosis, HTN and sleep apnea. He presents to the Ed with c/o dizziness, dehydration and muscle weakness. He reports that he had 4 episodes of diarrhea f rom soft loose stools to watery stool. He denies abdominal pain, reports nausea yesterday, denies vomiting. He denies headache or fevers. He reports that he hasn't been eating as much due to trying to get fluid around his abdomen off. He reports that he has had swelling in his abdomen for a few months and has noticed a recent weight gain from 233 pounds to 240 pounds. He reports that he is feeling hungry, and is ready to have regular food. Evaluation in emergency department revealed hypotension, baseline anemia, and acute kidney injury with creatinine of 2.6 up from his normal of 1.6. He has an associated increase in BUN to 53. Initial troponin is negative. EKG and chest x-ray are benign. He has been started on gentle IV fluids and is referred to the hospitalist service for admission and management of acute kidney injury secondary to dehydration in setting of CHF. Physical Exam Vital Signs: Temp Pulse Resp BP Pulse Ox 98.8 F 85 16 119/72 97 12/15/18 15:31 12/15/18 15:31 12/15/18 15:31 12/15/18 15:31 12/15/18 15:31 Intake & Output 12/15/18 12/16/18 12/17/18 06:59 06:59 06:59 Intake Total 2857 712 Output Total 400 Balance 2457 712 Weight 108.2 kg General appearance: PRESENT: no acute distress, well-developed, well-nourished - overweight Head exam: PRESENT: atraumatic, normocephalic Eye exam: PRESENT: conjunctiva pink, EOMI, PERRLA. ABSENT: scleral icterus Ear exam: PRESENT: normal external ear exam Mouth exam: PRESENT: moist, tongue midline Neck exam: ABSENT: carotid bruit, JVD, lymphadenopathy, thyromegaly Respiratory exam: PRESENT: clear to auscultation donna. ABSENT: rales, rhonchi, wheezes Cardiovascular exam: PRESENT: RRR. ABSENT: diastolic murmur, rubs, systolic murmur Pulses: PRESENT: normal dorsalis pedis pul Vascular exam: PRESENT: normal capillary refill GI/Abdominal exam: PRESENT: normal bowel sounds, soft. ABSENT: distended, guarding, mass, organolmegaly, rebound, tenderness Rectal exam: PRESENT: deferred Extremities exam: PRESENT: full ROM. ABSENT: calf tenderness, clubbing, pedal edema Neurological exam: PRESENT: alert, awake, oriented to person, oriented to place, oriented to time, oriented to situation, CN II-XII grossly intact. ABSENT: motor sensory deficit Psychiatric exam: PRESENT: appropriate affect, normal mood. ABSENT: homicidal ideation, suicidal ideation Skin exam: PRESENT: dry, intact, warm. ABSENT: cyanosis, rash Results Laboratory Results: 12/14/18 05:19 12/15/18 03:46 12/14/18 10:30 Stool - Stool - Final 12/14/18 10:30 Stool - Stool Stool Culture - Final NO SALMONELLA, SHIGELLA, CAMPYLOBACTER, OR E.COLI 0157 RECOVERED. NEGATIVE FOR SHIGA TOXINS 1&2. 12/13/18 07:55 Troponin I < 0.012 NT-Pro-B Natriuret Pep 20 Impressions: Chest X-Ray 12/13/18 07:58 IMPRESSION: No acute abnormality of the lungs in AP projection. Qualifiers - * PATIENT BEING DISCHARGED WITH ANY OF THE FOLLOWING DIAGNOSIS: No Acute Heart Failure - Is this a Heart Failure Patient?: Yes Documentation of LVEF assessment?: Yes LVEF < 40%?: Yes-if yes answer questions a through e a) Discharged on ACEI?: N/A Discharged on ARNI b) Discharges on ARB?: N/A-Discharged on ARNI c) Discharged on ARNI?: Yes d) Discharged on evidence-based Beta reji(carvedilol, sustained release meto prolol succinate, or bisoprolol)?: Yes e) For LVEF <35%, discharged on Aldosterone antagonist?: N/A (LVEF > or = 35%) 3. Anticoagulant therapy for permanect/persistent/paraoxysmal Afib or Aflutter: N/A Follow-up Appointment scheduled within 7 days?: No, document reason - D/C over weekend Plan Discharge Plan: Patient is discharged to home in stable condition. He does continue to have orthostatic hypotention but is asymptomatic while ambulatory >200 feet. He is advised to: Follow up with primary care provider within [address] Sloan's office on Monday to schedule a follow up appointment. Eat a low sodium diet. Hold lasix (furosemide) for now. Weight daily. Resume furosemide if gain >2 lbs overnight. Change positions slowly. Avoid strenuous activities and heat exposure. Return to the emergency department as needed for concerning symptoms. Time Spent: Greater than 30 Minutes
[2018-12-17] MEDS ORDERED: SODIUM ZIRCONIUM CYCLOSILICATE 10 GM PO SCH (10:00)
== END 2018-12-15 15:55 | disposition home or self-care (01) ==
LOC: ER 07:32 → INTOOBSV 09:40 → EH 09:40 → 5 12:45
PROVIDERS: ADMIT Internal Medicine; ATTEND Internal Medicine
DX: N17.9 Acute kidney failure, unspecified (principal); I95.1 Orthostatic hypotension; E86.0 Dehydration; R19.7 Diarrhea, unspecified; E11.9 Type 2 diabetes mellitus without complications; I11.0 Hypertensive heart disease with heart failure; I50.9 Heart failure, unspecified; K57.90 Diverticulosis of intestine, part unspecified, without perforation or abscess without bleeding; G47.30 Sleep apnea, unspecified; I73.9 Peripheral vascular disease, unspecified; Z79.899 Other long term (current) drug therapy
CPT/HCPCS: 93005; 99285; 36415 ×3; 87045; 87205; 82962 ×3; 83735; 84443; 85025; 85027; 80048 ×3; 84484; 82533 ×2; 83605; 83880; 71045; 93010; 94660 ×2; G0378 ×4; J1644 ×2; J0834; J1815 ×3; J7030 ×2; J7120; J3490

== ENCOUNTER → 2019-01-18 | Outpatient (CLI) | payer BC ==
[2019-01-18 09:47] LABS: APPEARANCE,URINE CLEAR; BILIRUBIN,URINE NEGATIVE (NEGATIVE); COLOR,URINE YELLOW; GLUCOSE, URINE >=500 mg/dL (NEGATIVE); KETONES,URINE NEGATIVE (NEGATIVE); LEUKOCYTE ESTERASE,URINE NEGATIVE (NEGATIVE); NITRITE,URINE NEGATIVE (NEGATIVE); PROTEIN,URINE >=500 mg/dL (NEGATIVE); URINE SPECIFIC GRAVITY 1.016; UROBILINOGEN,URINE NEGATIVE mg/dL (<2.0)
== END ==
LOC: OD 09:03
PROVIDERS: ATTEND Internal Medicine Nephrology
DX: E87.5 Hyperkalemia (principal); R31.9 Hematuria, unspecified
CPT/HCPCS: 36415; 81001; 84132

== ENCOUNTER → 2019-01-21 | Outpatient (CLI) | payer BC | LOC: OD 10:25 | PROVIDERS: ATTEND Physician Assistant Medical | DX: I13.0 Hypertensive heart and chronic kidney disease with heart failure and stage 1 through stage 4 chronic kidney disease, or unspecified chronic kidney disease (principal); I50.9 Heart failure, unspecified; N18.2 Chronic kidney disease, stage 2 (mild); E11.22 Type 2 diabetes mellitus with diabetic chronic kidney disease; R80.9 Proteinuria, unspecified; E87.5 Hyperkalemia | CPT/HCPCS: 36415; 84132 ==

== ENCOUNTER → 2019-03-19 | Outpatient (CLI) | payer BC ==
[2019-03-19 12:36] LABS: ABSOLUTE BASOPHILS # (AUTO) 0.1 10^3/uL (0.0-0.2); ABSOLUTE EOSINOPHILS # (AUTO) 0.1 10^3/uL (0.0-0.6); ABSOLUTE LYMPHOCYTES (AUTO) 1.8 10^3/uL (0.5-4.7); ABSOLUTE MONOCYTES (AUTO) 0.5 10^3/uL (0.1-1.4); ABSOLUTE NEUT (AUTO) 4.4 10^3/uL (1.7-8.2); EOSINOPHILS % (AUTO) 2.1 % (0-6); HEMATOCRIT 31.1 % (37.9-51.0); HEMOGLOBIN 10.3 g/dL (13.5-17.0); LYMPHOCYTES % (AUTO) 25.9 % (13-45); MEAN CORPUSCULAR VOLUME 85 fl (80-97); MONOCYTES % (AUTO) 6.6 % (3-13); PLATELET COUNT 182 10^3/uL (150-450); RED BLOOD COUNT 3.67 10^6/uL (4.35-5.55); RED CELL DISTRIBUTION WIDTH 13.9 % (11.5-14.0); SEGMENTED NEUTROPHILS % (AUTO) 64.4 % (42-78); TOTAL CELLS COUNTED % (AUTO) 100 %; WHITE BLOOD COUNT 6.8 10^3/uL (4.0-10.5)
[2019-03-19 12:47] LABS: APPEARANCE,URINE SLIGHTLY-CLOUDY; BILIRUBIN,URINE NEGATIVE (NEGATIVE); COLOR,URINE YELLOW; GLUCOSE, URINE 150 mg/dL (NEGATIVE); KETONES,URINE NEGATIVE (NEGATIVE); LEUKOCYTE ESTERASE,URINE NEGATIVE (NEGATIVE); NITRITE,URINE NEGATIVE (NEGATIVE); PROTEIN,URINE 100 mg/dL (NEGATIVE); UROBILINOGEN,URINE NEGATIVE mg/dL (<2.0)
[2019-03-19 13:02] LABS: ANION GAP 7 (5-19); BLOOD UREA NITROGEN 38 mg/dL (7-20); CALCIUM 9.1 mg/dL (8.4-10.2); CARBON DIOXIDE 23 mmol/L (22-30); CHLORIDE 111 mmol/L (98-107); GLUCOSE 144 mg/dL (75-110); POTASSIUM 5.5 mmol/L (3.6-5.0)
[2019-03-19 16:41] LABS: IRON(TIBC) 87.6 ug/dL (49-181)
== END ==
LOC: OD 11:52
PROVIDERS: ATTEND Physician Assistant Medical
DX: I12.9 Hypertensive chronic kidney disease with stage 1 through stage 4 chronic kidney disease, or unspecified chronic kidney disease (principal); N18.2 Chronic kidney disease, stage 2 (mild); R80.9 Proteinuria, unspecified; E11.22 Type 2 diabetes mellitus with diabetic chronic kidney disease; E87.5 Hyperkalemia
CPT/HCPCS: 36415; 80048; 81001; 82728; 83540; 83550; 85025

== ENCOUNTER 2019-07-19 18:31 | Emergency (ER) | payer BC ==
[2019-07-19] MEDS ORDERED: NORMAL SALINE 500 ML IV ONE (19:28)
--- NOTE | 2019-07-19 19:33 | ER Document Report ---
ED Medical Screen (RME) - General Chief Complaint: Cough Stated Complaint: COUGH,DIARRHEA Time Seen by Provider: 07/19/19 19:16 Primary Care Provider: TU CHURCH PA-C [Primary Care Provider] - Follow up as needed Notes: Patient presents complaining of diarrhea for the past 2 weeks. Patient states he is gone about 17 episodes a day. Patient reports nausea and vomiting off and on with last emesis yesterday. Patient is feels lightheaded and complains of heartburn. Patient denies chest pain although denies any history of acid reflux. Patient reports feeling weak and fatigued. Patient does have a history of diabetes, congestive heart failure, anemia, diverticulosis and gastroparesis. I have greeted and performed a rapid initial assessment of this patient. A comprehensive ED assessment and evaluation of the patient, analysis of test results and completion of the medical decision making process will be conducted by additional ED providers. TRAVEL OUTSIDE OF THE [place] IN LAST 30 DAYS: No - Related Data Allergies/Adverse Reactions: No Known Allergies Allergy (Verified 07/19/19 19:04) Past Medical History - Social History Chew tobacco use (# tins/day): No Frequency of alcohol use: None Drug Abuse: None - Past Medical History Cardiac Medical History: Reports: Hx Congestive Heart Failure, Hx Hypercholesterolemia, Hx Hypertension, Hx Peripheral Vascular Disease Denies: Hx Coronary Artery Disease, Hx Heart Attack Pulmonary Medical History: Reports: Hx Bronchitis, Hx Sleep Apnea Denies: Hx Asthma, Hx COPD, Hx Pneumonia Neurological Medical History: Denies: Hx Cerebrovascular Accident, Hx Seizures Endocrine Medical History: Reports: Hx Diabetes Mellitus Type 2 Renal/ Medical History: Denies: Hx Peritoneal Dialysis Musculoskeltal Medical History: Denies Hx Arthritis Psychiatric Medical History: Reports: Hx Depression Past Surgical History: Reports: Hx Orthopedic Surgery, Hx Testicular Surgery - abscess removal, Other - Removal of "tumor" from the right thigh, removal of multiple boils. Denies: Hx Cardiac Catheterization - Immunizations Hx Diphtheria, Pertussis, Tetanus Vaccination: Yes Physical Exam - Vital signs Vitals: Temp Pulse Resp BP Pulse Ox 98.4 F 84 16 91/59 L 96 07/19/19 18:41 07/19/19 18:41 07/19/19 18:41 07/19/19 18:41 07/19/19 18:41 - Abdominal Inspection: Normal Tenderness: Nontender Course - Re-evaluation Re-evalutation: 07/19/19 19:[address] szymanski who advises giving a 500 mL saline bolus given history of CHF. - Vital Signs Vital signs: Temp Pulse Resp BP Pulse Ox 98.4 F 82 16 95/58 L 98 07/19/19 18:41 07/19/19 18:42 07/19/19 18:41 07/19/19 18:42 07/19/19 18:42 Doctor's Discharge - Discharge Referrals: TU CHURCH PA-C [Primary Care Provider] - Follow up as needed
[2019-07-19 20:09] LABS: ABSOLUTE BASOPHILS # (AUTO) 0.1 10^3/uL (0.0-0.2); ABSOLUTE EOSINOPHILS # (AUTO) 0.2 10^3/uL (0.0-0.6); ABSOLUTE MONOCYTES (AUTO) 0.6 10^3/uL (0.1-1.4); ABSOLUTE NEUT (AUTO) 5.4 10^3/uL (1.7-8.2); EOSINOPHILS % (AUTO) 2.4 % (0-6); HEMOGLOBIN 10.4 g/dL (13.5-17.0); LYMPHOCYTES % (AUTO) 23.6 % (13-45); MEAN CORPUSCULAR HEMOGLOBIN 29.2 pg (27.0-33.4); MEAN CORPUSCULAR HGB CONC 33.6 g/dL (32.0-36.0); MEAN CORPUSCULAR VOLUME 87 fl (80-97); MONOCYTES % (AUTO) 7.7 % (3-13); PLATELET COUNT 214 10^3/uL (150-450); RED BLOOD COUNT 3.56 10^6/uL (4.35-5.55); RED CELL DISTRIBUTION WIDTH 13.6 % (11.5-14.0); SEGMENTED NEUTROPHILS % (AUTO) 65.3 % (42-78); TOTAL CELLS COUNTED % (AUTO) 100 %; WHITE BLOOD COUNT 8.3 10^3/uL (4.0-10.5)
[2019-07-19 20:10] LABS: APPEARANCE,URINE SLIGHTLY-CLOUDY; BILIRUBIN,URINE NEGATIVE (NEGATIVE); COLOR,URINE YELLOW; GLUCOSE, URINE NEGATIVE (NEGATIVE); KETONES,URINE NEGATIVE (NEGATIVE); LEUKOCYTE ESTERASE,URINE NEGATIVE (NEGATIVE); NITRITE,URINE NEGATIVE (NEGATIVE); PROTEIN,URINE 100 mg/dL (NEGATIVE); URINE SPECIFIC GRAVITY 1.015; UROBILINOGEN,URINE NEGATIVE mg/dL (<2.0)
[2019-07-19 20:23] LABS: ALBUMIN 3.7 g/dL (3.5-5.0); ALKALINE PHOSPHATASE 73 U/L (38-126); ANION GAP 8 (5-19); ASPARTATE AMINO TRANSFERASE 27 U/L (17-59); BILIRUBIN,TOTAL 0.3 mg/dL (0.2-1.3); BLOOD UREA NITROGEN 48 mg/dL (7-20); CARBON DIOXIDE 20 mmol/L (22-30); CHLORIDE 109 mmol/L (98-107); GLUCOSE 153 mg/dL (75-110); POTASSIUM 5.7 mmol/L (3.6-5.0)
[2019-07-19 20:31] LABS: CALCIUM 12.1 mg/dL (8.4-10.2)
--- NOTE | 2019-07-19 20:31 | RADIOLOGY REPORT (SQ) ---
EXAM DESCRIPTION: CLINICAL HISTORY: 48 years Male, cp COMPARISON: Single view of the chest 12/13/2018 FINDINGS: Lungs: Lungs are clear. No pneumonia or edema. No pneumothorax or pleural effusion. Mediastinum: Cardiac and mediastinal silhouette are normal. Bones: Osseous structures are normal. IMPRESSION: No acute process.
[2019-07-19 20:55] LABS: VENOUS BLOOD BASE EXCESS -5.8 mmol/L; VENOUS BLOOD PCO2 46.2 mmHg (35-63); VENOUS BLOOD PH 7.28 (7.30-7.42)
[2019-07-19] MEDS ORDERED: NORMAL SALINE 1000 ML 1,000 ML IV ONE (22:35)
--- NOTE | 2019-07-19 22:53 | ER Document Report ---
ED General - General Chief Complaint: Cough Stated Complaint: COUGH,DIARRHEA Time Seen by Provider: 07/19/19 19:16 Primary Care Provider: TU CHURCH PA-C [ALLIED HEALTH PROFESSIONAL] - Follow up in 3-5 days Notes: Patient is a 48-year-old male that comes emergency department for chief complaint of persistent diarrhea. He states this is been going on for 2 weeks now. He states that he is only vomited once in the past 24 hours, mainly the problem is the persistent diarrhea. He states that he is going about 17 times a day, nonbloody. He denies fever or abdominal pain. He reports intermittent lightheadedness and occasional heartburn. He denies chest pain, shortness of breath. 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 He does have a history of type 2 diabetes, he states he takes an "as needed fluid pill for swelling on the legs", unable to tell me definitely that he has CHF, and he also states he has anemia. He denies any abdominal surgeries, he denies any recent antibiotics or suspicious foods. He denies history of C. difficile. TRAVEL OUTSIDE OF THE [place] IN LAST 30 DAYS: No - Related Data Allergies/Adverse Reactions: No Known Allergies Allergy (Verified 07/19/19 19:04) Past Medical History - General Information source: Patient - Social History Smoking Status: Never Smoker Chew tobacco use (# tins/day): No Frequency of alcohol use: None Drug Abuse: None Lives with: Family Family History: CAD, DM, Hypertension Patient has suicidal ideation: No Patient has homicidal ideation: No - Past Medical History Cardiac Medical History: Reports: Hx Congestive Heart Failure, Hx Hypercholesterolemia, Hx Hypertension, Hx Peripheral Vascular Disease Denies: Hx Coronary Artery Disease, Hx Heart Attack Pulmonary Medical History: Reports: Hx Bronchitis, Hx Sleep Apnea Denies: Hx Asthma, Hx COPD, Hx Pneumonia Neurological Medical History: Denies: Hx Cerebrovascular Accident, Hx Seizures Endocrine Medical History: Reports: Hx Diabetes Mellitus Type 2 Renal/ Medical History: Denies: Hx Peritoneal Dialysis Musculoskeletal Medical History: Denies Hx Arthritis Psychiatric Medical History: Reports: Hx Depression Past Surgical History: Reports: Hx Orthopedic Surgery, Hx Testicular Surgery - abscess removal, Other - Removal of "tumor" from the right thigh, removal of multiple boils. Denies: Hx Cardiac Catheterization - Immunizations Hx Diphtheria, Pertussis, Tetanus Vaccination: Yes Hx Pneumococcal Vaccination: 10/05/13 Review of Systems - Review of Systems Constitutional: See HPI EENT: No symptoms reported Cardiovascular: No symptoms reported Respiratory: See HPI Gastrointestinal: See HPI Genitourinary: No symptoms reported Male Genitourinary: No symptoms reported Musculoskeletal: No symptoms reported Skin: No symptoms reported Hematologic/Lymphatic: No symptoms reported Neurological/Psychological: No symptoms reported Physical Exam - Vital signs Vitals: Temp Pulse Resp BP Pulse Ox 98.4 F 84 16 91/59 L 96 07/19/19 18:41 07/19/19 18:41 07/19/19 18:41 07/19/19 18:41 07/19/19 18:41 - Notes Notes: GENERAL: Alert, interacts well. No acute distress. HEAD: Normocephalic, atraumatic. EYES: Pupils equal, round, and reactive to light. Extraocular movements intact. ENT: Oral mucosa dry, tongue midline. Oropharynx unremarkable. Airway patent. NECK: Full range of motion. Supple. Trachea midline. LUNGS: Clear to auscultation bilaterally, no wheezes, rales, or rhonchi. No respiratory distress. HEART: Regular rate and rhythm. No murmur. Occasional mild cough. ABDOMEN: Soft, non-tender. Non-distended. Bowel sounds present in all 4 quadrants. GENITOURINARY: Deferred EXTREMITIES: Moves all 4 extremities spontaneously. No edema, normal radial and dorsalis pedis pulses bilaterally. No cyanosis. BACK: no cervical, thoracic, lumbar midline tenderness. No saddle anesthesia, normal distal neurovascular exam. Moves all extremities in full range of motion. NEUROLOGICAL: Alert and oriented x3. Normal speech. Cranial nerves II through XII grossly intact. PSYCH: Normal affect, normal mood. SKIN: Warm, dry, normal turgor. No rashes or lesions noted. Course - Re-evaluation Re-evalutation: Patient has a benign abdomen with no tenderness. He has an occasional cough but this is also very mild. Lungs clear, no hypoxia, no fever. No leukocytosis. Chest x-ray unremarkable. Patient was able to provide a stool sample, this was negative for white blood cells, C. difficile pending. Chemistry shows renal insufficiency, elevated BUN, elevated potassium at 5.7, elevated calcium at 12.1, slightly low bicarbonate at 20. EKG with unremarkable QTC and no ectopy. Patient was given 2 IV fluid boluses. After this his mild hypotension resolved. Reevaluated patient, he states he feels much better and he is wondering if he can go home. He states he is used to having the symptoms and has a close follow-up with gastroenterology. He tolerated p.o. without any difficulty. Chemistry was repeated, this shows improved potassium at 5.3 which is at his baseline compared to prior, much improved calcium. Renal function not signi ficantly changed but his renal functioning today is also not significantly changed from frequent testing in the past. C. difficile fortunately is negative. I discussed patient with Dr. Montiel. Patient will be discharged with close primary care follow-up for recheck of his chemistry, symptom francois mckinley will be provided, he will follow-up with his manager of sustainability quickly and he will return if he worsens in any way. Patient states appreciation and agreement. Stable at time of discharge. - Vital Signs Vital signs: Temp Pulse Resp BP Pulse Ox 98.5 F 82 18 131/80 H 94 07/20/19 04:01 07/19/19 18:42 07/20/19 04:01 07/20/19 04:01 07/20/19 04:01 - Laboratory Result Diagrams: 07/19/19 19:36 07/20/19 01:24 Laboratory results interpreted by me: 07/19/19 07/19/19 07/19/19 19:36 19:36 19:36 RBC 3.56 L Hgb 10.4 L Hct 31.0 L VBG pH Potassium 5.7 H Chloride 109 H Carbon Dioxide 20 L BUN 48 H Creatinine 2.34 H Est GFR ( Amer) 36 L Est GFR (MDRD) Non-Af 30 L Glucose 153 H Calcium 12.1 H* Urine Protein 100 H Urine Ascorbic Acid 40 H 07/19/19 07/20/19 20:44 01:24 RBC Hgb Hct VBG pH 7.28 L Potassium 5.3 H Chloride 111 H Carbon Dioxide 19 L BUN 45 H Creatinine 2.37 H Est GFR ( Amer) 36 L Est GFR (MDRD) Non-Af 30 L Glucose 122 H Calcium 11.3 H Urine Protein Urine Ascorbic Acid - EKG Interpretation by Me Additional EKG results interpreted by me: EKG shows sinus rhythm at a rate of 84. J-point elevations in the anterior leads mainly, normal axis, no T wave inversions, QTC of 379. No significant change from prior. Discharge - Discharge Clinical Impression: Hyperkalemia, Hypercalcemia, Dehydration Diarrhea Qualifiers: Diarrhea type: unspecified type Qualified Code(s): R19.7 - Diarrhea, unspecified Condition: Stable Disposition: HOME, SELF-CARE Additional Instructions: You have been treated for dehydration and electrolyte abnormalities. Your initial work-up of your stool is negative, we do have a stool culture growing in our lab and you will be contacted for any concerning findings. Follow closely with your manager of sustainability. I highly recommend you take probiotics [id number], take the provided medications for your symptoms if needed. Follow-up routinely with your provider for recheck of your kidney fu nctioning as well. Drink plenty of fluids. Return if you worsen including developing abdominal pain, uncontrolled vomiting, passing out, no urination for 8 hours, fever, or any other concerning symptoms. Prescriptions: Ondansetron [Zofran Odt 4 mg Tablet] 1 - 2 tab PO Q4H PRN #15 tab.rapdis PRN Reason: For Nausea/Vomiting Referrals: TU CHURCH PA-C [ALLIED HEALTH PROFESSIONAL] - Follow up in 3-5 days
[2019-07-19] MEDS ORDERED: LIDOCAINE 2% VISCOUS SOLN 15 ML UDCUP PO ONE (23:05)
[2019-07-19] MEDS ORDERED: METOCLOPRAMIDE HCL ORAL SOLN 10 MG/10 ML UDCUP PO ONE (23:05)
[2019-07-19] MEDS ORDERED: MAG HYDROX/AL HYDROX/SIMETH SUSP 30 ML UDCUP PO ONE (23:05)
[2019-07-20 02:03] LABS: ANION GAP 9 (5-19); BLOOD UREA NITROGEN 45 mg/dL (7-20); CALCIUM 11.3 mg/dL (8.4-10.2); CARBON DIOXIDE 19 mmol/L (22-30); CHLORIDE 111 mmol/L (98-107); GLUCOSE 122 mg/dL (75-110); POTASSIUM 5.3 mmol/L (3.6-5.0)
[2019-07-20] MEDS ORDERED: MORPHINE SULFATE 10 MG/ML INJ IV ONE (02:53)
[2019-07-20 03:46] LABS: C DIFFICILE GDH NEGATIVE (NEGATIVE)
[2019-07-20] MEDS ORDERED: HYDROCODONE/ACETAMINOPHEN 5-325 MG (6 TAB/ER DISP) PO PRN (04:35)
[2019-07-20] MEDS ORDERED: ONDANSETRON ODT 4 MG TAB (6 TAB/ER DISP) PO PRN (04:35)
[2019-07-20 04:38] VITALS: BP 131/80
--- NOTE | 2019-07-20 10:37 | EKG REPORT ---
SEVERITY:- ABNORMAL ECG - SINUS RHYTHM ST ELEVATION, PROBABLE LATERAL INJURY BORDERLINE ST ELEVATION, ANTERIOR LEADS UNCHANGED. : Confirmed by: Carl Epps MD 20-Jul-2019 10:36:31
== END 2019-07-20 05:44 | disposition home or self-care (01) ==
LOC: ER 18:31
DX: E87.5 Hyperkalemia (principal); E83.52 Hypercalcemia; E86.0 Dehydration; R19.7 Diarrhea, unspecified; R05 Cough; R11.10 Vomiting, unspecified; E11.9 Type 2 diabetes mellitus without complications; M79.89 Other specified soft tissue disorders; I50.9 Heart failure, unspecified; I11.0 Hypertensive heart disease with heart failure
CPT/HCPCS: 93005; 99284; 96361; 96374; 36415; 87045; 89055; 87205; 83735; 85025; 80053; 81001; 84484; 82803; 87324; 87449; 71046; 93010; J3490; J2270; J7030; J7040

== ENCOUNTER 2019-07-29 08:53 | Day surgery (SDC) | payer BC ==
[~2019-07-29 08:53] MED LIST: LIDOCAINE 2% INJ-PF (20 MG/ML) 10 ML AMPUL ONE; PROPOFOL INJ 200 MG/20 ML VIAL IV ONE
[2019-07-29 11:08] VITALS: BP 121/76
--- NOTE | 2019-07-29 14:00 | Operative Report ---
Operative Report DATE OF SURGERY: 07/29/19 Operative Report: The risk, benefits and alternatives of the procedure including the risk of bleeding, perforation requiring surgery have been explained to the patient in detail and informed consent has been obtained. Patient is placed in a left, lateral decubital position. Timeout was called. Propofol medication is administered. Rectal examination is done which did not reveal any masses, tears or fissures. An Olympus videoscope was introduced into the patient's rectum. Scope was then carefully advanced all the way to the cecum. The cecum was identified by the usual anatomical landmarks of the ileocecal valve as well as the appendiceal office. Photodocumentation is obtained. Scope was then sequentially pulled back via the various segments of the colon including the ascending colon, hepatic flexure, transverse colon, splenic flexure, descending colon finding to the rectosigmoid portions of the colon. Retroflexion maneuvers performed. The risks benefits and alternatives of the procedure explained to the patient in detail and informed consent is obtained.A GIF Olympus video scope was inserted into the patient's mouth and hypopharynx, the esophagus is identified intubated and insufflated ,the scope was then advanced through the esophagus stomach and d uodenum, retroflexion maneuver is done, the esophagus stomach and first and second portions of the duodenum examined PREOPERATIVE DIAGNOSIS: Dyspepsia, change in bowel habits POSTOPERATIVE DIAGNOSIS: Right side colon inflammation status post biopsy. gastritis status post biopsy OPERATION: Colonoscopy with biopsy. EGD with biopsy SURGEON: PITER CABRAL ANESTHESIA: LMAC TISSUE REMOVED OR ALTERED: As noted above COMPLICATIONS: None. ESTIMATED BLOOD LOSS: None. INTRAOPERATIVE FINDINGS: As noted above. PROCEDURE: Patient tolerated the procedure well. No immediate postprocedure complications are noted. Patient is discharged in good condition. Discharge date 07/29/2019. Discharge diet: Regular. Discharge activity: Regular. 2 to 3-week follow-up to discuss findings. Patient is instructed to call the office or proceed to the emergency room should there be any further problems or questions. Wait on the pathology.
== END 2019-07-29 11:13 | disposition home or self-care (01) ==
LOC: END 08:53
PROVIDERS: ATTEND Internal Medicine Gastroenterology
DX: K52.9 Noninfective gastroenteritis and colitis, unspecified (principal); K29.50 Unspecified chronic gastritis without bleeding; E11.9 Type 2 diabetes mellitus without complications; Z79.4 Long term (current) use of insulin; E78.00 Pure hypercholesterolemia, unspecified; I50.9 Heart failure, unspecified; Z79.82 Long term (current) use of aspirin; Z79.899 Other long term (current) drug therapy; Z79.84 Long term (current) use of oral hypoglycemic drugs
CPT/HCPCS: 43239; 45380; 82962; 88305 ×2; J2704; J3490